=== PATIENT | female | born 1950 | race Caucasian/White ===

== ENCOUNTER 2021-05-10 20:57 | Inpatient (IN) | payer MEDICARE, SELFPAY ==
[2021-05-10 21:26] VITALS: BMI 28.0
--- NOTE | 2021-05-10 22:08 | PC.NURSE ---
Pt arrived to the floor via stretcher as admit from [facility] obs unit 1400, at 2110. The pt agreed to sign a CV. The pt reports hearing voices from eleno, telling me I am loved and am a good person . The pt reports she understands they are voices nobody else hears, but I would be sad if they went away . The pt carries the medical diagnosis of A-fib; HLD; MARTINA; and DM2. The pt reports she does not regularly check her blood sugar at home, and does not use a C-PAP machine at this time at home since hers is no longer usable. The pt is alert and oriented to person, place, month, and situation. She reports I know the voices I hear are not normal, but I don't want them to go away . The pt reports I will not sign release forms, I don't want anyone here to talk to my family, and I don't want them to visit.
[2021-05-10] MEDS: Magnesium Hydrox/Alum Hydrox 30 ML ORAL.SUSP PO (23:47)
[2021-05-11 08:00] VITALS: BP 119/69; PULSE 74; RESP 17; TEMP 36.2; O2SAT 95
[2021-05-11] MEDS: hydroCHLOROthiazide 25 MG TABLET PO (08:18)
[2021-05-11] MEDS: OLANZapine 5 MG TABLET PO (08:18)
[2021-05-11] MEDS: Cholecalciferol (Vitamin D3) 10 MCG TABLET PO (08:18)
[2021-05-11] MEDS: Metoprolol Succinate ER 50 MG TAB.ER.24H PO (08:18)
[2021-05-11] MEDS: Apixaban 5 MG TABLET PO ×2 (08:18→20:32)
[2021-05-11] MEDS: lisinopriL 40 MG TABLET PO (08:18)
[2021-05-11] MEDS: SITagliptin Phosphate 100 MG TABLET PO (09:44)
[2021-05-11] MEDS: Flecainide Acetate 50 MG TABLET 100 MG PO ×2 (09:44→20:32)
--- NOTE | 2021-05-11 14:36 | P.HPPS_ITS ---
HPI Date of Service: 05/11/21 Chief Complaint: Unspecified Schizophrenia Sources of Information: patient interviewed, chart reviewed and crisis/core team assessment reviewed HPI Subjective Notes: Vogt Warning and Conditional Voluntary Narrative: The patient is a 70-year-old female, , mother of adult children, retired high school computer science teacher, living with her , With good social support, referred from [facility] for psychotic symptoms. According to the patient, since January, she has been hearing angelical voices who sings to her Alyce we love you another positive messages. The patient was brought to the emergency room by her family since she became more disorganized according to the crisis assessment. She was initially admitted to Medicine, fully workout and then later followed by Psychiatry and the consultation liasson service recommended inpatient level of care.According to the report of [facility], the patient has been cheeking her antipsychotics that is why she is on Zyprexa Zydis to assure compliance. On interview, the patient reported that she is very angry with her family since they put her in the hospital against her will and, at this moment she does not want us to contact her or children for further details. She admitted auditory hallucinations but she adamantly denies paranoia, ideas of reference or disorganized thought process. Apparently she is very religiously preoccupied, she has verbalized to the staff that she is waiting for the rupture and she would be with got. Even though the patient is psychotic with bizarre delusions and religiously preoccupied, she is very easily redirectable and pleasant. She stated that she does not want her voices to go and she liked them very much. Past Psychiatric History: denies Medical Evaluation Reviewed: Yes [facility] Narrative: HTN Diabetes type 2 Family History: denies Social History: the patient is the 3rd of 6 siblings, her milestones were achieved at expected age. She was raised by her parents that she had a very good childhood. She denied regular school and later she graduated. She attended college, she got and she has 3 adult children right now, she has worked and she has have a very good life. She retired as a high school computer science teacher Substance History: denies Trauma History: denies Diagnostics Vital Signs (24Hr): Vital Signs - 24 hr 05/11/21 08:00 Temperature 97.1 F Pulse Rate 74 Respiratory Rate 17 Blood Pressure 119/69 Pulse Oximetry 95 BMI result Body Mass Index 28.0 Meds/Allergies Meds Home Medications Acetaminophen (Acetaminophen 325 Mg Tablet) 650 mg PO Q6H PRN PRN Reason: Headache/Pain Mild Scale (1-3) Al Hydroxide/Mg Hydroxide (Magnesium Hydrox/Alum Hydrox 30 Ml Oral.Susp) 30 ml PO Q6H PRN PRN Reason: Heartburn/Nausea Last Admin: 05/10/21 23:47 Dose: 30 ml Documented by: Apixaban (Apixaban 5 Mg Tablet) 5 mg PO BID [facility] Last Admin: 05/11/21 08:18 Dose: 5 mg Documented by: Flecainide Acetate (Flecainide Acetate 50 Mg Tablet) 100 mg PO BID [facility] Last Admin: 05/11/21 09:44 Dose: 100 mg Documented by: Hydrochlorothiazide (Hydrochlorothiazide 25 Mg Tablet) 25 mg PO DAILY [facility] Last Admin: 05/11/21 08:18 Dose: 25 mg Documented by: Hydroxyzine HCl (Hydroxyzine Hcl 25 Mg Tablet) 25 mg PO Q6H PRN PRN Reason: Anxiety Lisinopril (Lisinopril 40 Mg Tablet) 40 mg PO DAILY [facility]; Protocol Last Admin: 05/11/21 08:18 Dose: 40 mg Documented by: Magnesium Hydroxide (Milk Of Magnesia 30 Ml Oral.Susp) 30 ml PO DAILY PRN PRN Reason: Constipation Metoprolol Succinate (Metoprolol Succinate Er 50 Mg Tab.Er.24h) 50 mg PO DAILY [facility]; Protocol Last Admin: 05/11/21 08:18 Dose: 50 mg Documented by: Olanzapine (Olanzapine 2.5 Mg Tablet) 2.5 mg PO Q6H PRN PRN Reason: anxious, agitated Olanzapine (Olanzapine Odt 10 Mg Tab.Rapdis) 10 mg TRANSLINGU BEDTIME [facility] Sitagliptin Phosphate (Sitagliptin Phosphate 100 Mg Tablet) 100 mg PO DAILY [facility] Last Admin: 05/11/21 09:44 Dose: 100 mg Documented by: Trazodone HCl (Trazodone Hcl 50 Mg Tablet) 50 mg PO BEDTIME PRN PRN Reason: Insomnia Vitamin D (Cholecalciferol (Vitamin D3) 10 Mcg Tablet) 10 mcg PO DAILY [facility] Last Admin: 05/11/21 08:18 Dose: 10 mcg Documented by: Allergies Allergies Allergy/AdvReac Type Severity Reaction Status Date / Time bee pollen [bee stings] Allergy Swelling Verified 05/10/21 21:25 codeine Allergy Anaphylaxis Verified 05/10/21 21:25 Mental Status Exam Mental Status Exam Patient Appearance: Well Grooomed Patient Orientation: Person and Situation Level of Consciousness: Awake Patient Behavior: Appropriate Mood Description: Calm and Relaxed Affect Description: Cheerful and Anxious Ability to Follow Directions: Fair Speech Pattern: Clear Hallucinations: Auditory Delusions: Ideas of Reference and Bizarre Thought Process: Distracted and Evasive Thought Content: positive for Cades, positive for Circumstantial, positive for Poverty of Content and positive for Evasive Judgement: Poor Assessment & Plan Assessment & Plan (1) Psychosis: Status: Acute Code(s): F29 - Unspecified psychosis not due to a substance or known physiological condition Plan the patient is a 70-year-old female with no prior psychiatric illnesses, transferred from another hospital after being medically cleared for psychotic symptoms mostly auditory hallucinations and disorganized thought process, obsessed with worship content. Plan 1. Gather collateral information. 2. Continue Zyprexa but now only 15 mg p.o. q.h.s. on disorder been tablet since the patient has a history of cheeking medication. Patient educated on: therapeutic strategies Informed Consent: further education needed Reason for continued inpatient stay Substantial Risk for: inability to function, rapid decompensation and med/psych decompensation
[2021-05-11 18:00] VITALS: BP 141/60; PULSE 76; RESP 17; TEMP 36.9; O2SAT 97
[2021-05-11] MEDS: OLANZapine ODT 10 MG TAB.RAPDIS TRANSLINGU (20:33)
[2021-05-12] MEDS: lisinopriL 40 MG TABLET PO (08:13)
[2021-05-12] MEDS: Flecainide Acetate 50 MG TABLET 100 MG PO ×2 (08:13→19:59)
[2021-05-12] MEDS: Apixaban 5 MG TABLET PO ×2 (08:14→19:59)
[2021-05-12] MEDS: hydroCHLOROthiazide 25 MG TABLET PO (08:14)
[2021-05-12] MEDS: Cholecalciferol (Vitamin D3) 10 MCG TABLET PO (08:14)
[2021-05-12] MEDS: Metoprolol Succinate ER 50 MG TAB.ER.24H PO (08:14)
[2021-05-12] MEDS: SITagliptin Phosphate 100 MG TABLET PO (08:14)
[2021-05-12 08:30] VITALS: BP 121/60; PULSE 63; RESP 16; TEMP 36.2; O2SAT 96
--- NOTE | 2021-05-12 12:29 | HO.PM.IMCN ---
History of Present Illness Data of Consult Service Date: 05/12/21 Requesting physician: Jonelle Whitman Primary Care Provider: Jude Campbell MD HPI Reason for consult: medical history and exam 70-year-old white female with past medical history of atrial fibrillation on Eliquis, dyslipidemia, diabetes mellitus status type 2 admitted to [facility] as a transfer from [facility], for auditory hallucination, paranoia and psychosis, patient underwent extensive testing at [facility] was seen by Neurology and Psychiatry and MRI study was unremarkable CT has was negative, EEG showed no abnormality, patient declined LP, at present patient is awake alert denies acute symptoms of chest pain shortness of breath, no dizziness no fevers no chills. Review of Systems Review of Systems: General no headache, no dizziness no fever chills. CVS no chest pain, no palpitation. Respiratory no cough , no sputum production no respiratory distress. Gastrointestinal no nausea no vomiting, no abdominal pain Yes all other systems are reviewed and are negative PMFSH Pertinent family history: patient denies significant family history Social History Household Members: Spouse Housing: House Do you presently have visiting nurse or other home services: No Patient Tobacco Use Status: Never used Tobacco Use of substances other than those prescribed or required for medical reasons: No Currently Displaying Signs/Symptoms of Drug Intoxication Withdrawal: No Have you been hit, kicked, punched, or otherwise hurt by someone within the past year? If so, by whom?: No Do you feel safe in your current relationship?: Yes Is there a partner from a previous relationship who is making you feel unsafe now?: No Are you made to feel afraid or neglected: No Spiritual Healthcare Practices: Religiously preoccupied. Advance Directives: No Advance Directives Information Provided: No Do you have thoughts of harming others: None Do you have a plan to hurt others: No Plan Recently lost weight without trying: No How much weight loss: Not applicable Eating poorly because of decreased appetite: No Nutrition screen score: 0 Nutrition Risks: No Nutritional Risk Patient : No : No Poor oral hygiene: No service: No Sexual orientation: Straight/Heterosexual Meds Allergies Allergy/AdvReac Type Severity Reaction Status Date / Time bee pollen [bee stings] Allergy Swelling Verified 05/10/21 21:25 codeine Allergy Anaphylaxis Verified 05/10/21 21:25 Active Medications: Current Medications Acetaminophen (Acetaminophen 325 Mg Tablet) 650 mg PO Q6H PRN PRN Reason: Headache/Pain Mild Scale (1-3) Al Hydroxide/Mg Hydroxide (Magnesium Hydrox/Alum Hydrox 30 Ml Oral.Susp) 30 ml PO Q6H PRN PRN Reason: Heartburn/Nausea Last Admin: 05/10/21 23:47 Dose: 30 ml Documented by: Apixaban (Apixaban 5 Mg Tablet) 5 mg PO BID [facility] Last Admin: 05/12/21 08:14 Dose: 5 mg Documented by: Flecainide Acetate (Flecainide Acetate 50 Mg Tablet) 100 mg PO BID [facility] Last Admin: 05/12/21 08:13 Dose: 100 mg Documented by: Hydrochlorothiazide (Hydrochlorothiazide 25 Mg Tablet) 25 mg PO DAILY [facility] Last Admin: 05/12/21 08:14 Dose: 25 mg Documented by: Hydroxyzine HCl (Hydroxyzine Hcl 25 Mg Tablet) 25 mg PO Q6H PRN PRN Reason: Anxiety Lisinopril (Lisinopril 40 Mg Tablet) 40 mg PO DAILY [facility]; Protocol Last Admin: 05/12/21 08:13 Dose: 40 mg Documented by: Magnesium Hydroxide (Milk Of Magnesia 30 Ml Oral.Susp) 30 ml PO DAILY PRN PRN Reason: Constipation Metoprolol Succinate (Metoprolol Succinate Er 50 Mg Tab.Er.24h) 50 mg PO DAILY [facility]; Protocol Last Admin: 05/12/21 08:14 Dose: 50 mg Documented by: Olanzapine (Olanzapine 2.5 Mg Tablet) 2.5 mg PO Q6H PRN PRN Reason: anxious, agitated Olanzapine (Olanzapine Odt 10 Mg Tab.Rapdis) 10 mg TRANSLINGU BEDTIME [facility] Last Admin: 05/11/21 20:33 Dose: 10 mg Documented by: Sitagliptin Phosphate (Sitagliptin Phosphate 100 Mg Tablet) 100 mg PO DAILY [facility] Last Admin: 05/12/21 08:14 Dose: 100 mg Documented by: Trazodone HCl (Trazodone Hcl 50 Mg Tablet) 50 mg PO BEDTIME PRN PRN Reason: Insomnia Vitamin D (Cholecalciferol (Vitamin D3) 10 Mcg Tablet) 10 mcg PO DAILY [facility] Last Admin: 05/12/21 08:14 Dose: 10 mcg Documented by: Physical Exam Vital Signs and Narrative: Vital Signs: Last Vital Signs Temp 97.1 F 05/12/21 08:30 Pulse 63 05/12/21 08:30 Resp 16 05/12/21 08:30 BP 121/60 05/12/21 08:30 Pulse Ox 96 05/12/21 08:30 BMI result Body Mass Index 28.0 Const: Other: awake alert resting comfortably, patient declined examination. Assessment and Plan (1) Dyslipidemia: Status: Acute (2) Diabetes mellitus: Status: Acute (3) Atrial fibrillation: Status: Acute (4) Psychosis: Status: Acute Plan 70-year-old female patient admitted to [facility] due to psychosis with past medical history of atrial fibrillation on Eliquis, history of dyslipidemia, type 2 diabetes mellitus. Patient refused to be examined. Atrial fibrillation stable blood pressure and pulse will recommend to continue Eliquis, flecainide and Toprol-XL, no EKGs available to determine if patient is in sinus rhythm or AFib and patient declined examination. diabetes mellitus continue Januvia and diabetic diet, recommend to follow blood sugar daily thank you for allowing us to participate in the care of this patient
--- NOTE | 2021-05-12 16:52 | P.PNPSI_ITS ---
Subjective Subjective Date of Service: 05/12/21 Reason For Visit: Unspecified Schizophrenia Subjective Notes: Conditional Voluntary Medical Problems Affecting Mental Status: No Interim History: met with patient and discussed with Nursing. Continues to have nondenominational preoccupation. Praying in the day area. Trying to save other patients through prayer. Reports that she feels great and she enjoys having God's angels talking to her. States that they tell her they miss her and that she will be able to help people for ever and never. Reports not feeling anxious or stressed by this but feeling blast. Wanted to encourage ad copy writer to repeat the sinners prayer after her in order that ad copy writer could go to [facility]. She eventually compromised on saying the sinners prayer out loud so ad copy writer could have the option to repeat this themselves at another time and avoid hell and damnation. sleep has been poor. Energy and appetite okay. Does not feel that she needs medications however is taking them. Medication Compliance: Yes Side effects from medications: No Attending Groups: Yes Review of Systems Acute medical concerns: No Review of Systems Review of Systems Unremarkable Mental Status Exam Mental Status Exam Narrative: seen in day room and also patient room. Appropriately dressed. Hygiene okay. Praying out loud. Intrusive at times. Elated. Hallucinating. No SI or HI. Insight and judgment limited Diagnostics Vital Signs (24Hr): Vital Signs - 24 hr 05/11/21 18:00 05/12/21 08:30 Temperature 98.4 F 97.1 F Pulse Rate 76 63 Respiratory Rate 17 16 Blood Pressure 141/60 H 121/60 Pulse Oximetry 97 96 BMI result Body Mass Index 28.0 Medications Medications Current Medications Acetaminophen (Acetaminophen 325 Mg Tablet) 650 mg PO Q6H PRN PRN Reason: Headache/Pain Mild Scale (1-3) Al Hydroxide/Mg Hydroxide (Magnesium Hydrox/Alum Hydrox 30 Ml Oral.Susp) 30 ml PO Q6H PRN PRN Reason: Heartburn/Nausea Last Admin: 05/10/21 23:47 Dose: 30 ml Documented by: Apixaban (Apixaban 5 Mg Tablet) 5 mg PO BID [facility] Last Admin: 05/12/21 08:14 Dose: 5 mg Documented by: Flecainide Acetate (Flecainide Acetate 50 Mg Tablet) 100 mg PO BID [facility] Last Admin: 05/12/21 08:13 Dose: 100 mg Documented by: Hydrochlorothiazide (Hydrochlorothiazide 25 Mg Tablet) 25 mg PO DAILY [facility] Last Admin: 05/12/21 08:14 Dose: 25 mg Documented by: Hydroxyzine HCl (Hydroxyzine Hcl 25 Mg Tablet) 25 mg PO Q6H PRN PRN Reason: Anxiety Lisinopril (Lisinopril 40 Mg Tablet) 40 mg PO DAILY [facility]; Protocol Last Admin: 05/12/21 08:13 Dose: 40 mg Documented by: Magnesium Hydroxide (Milk Of Magnesia 30 Ml Oral.Susp) 30 ml PO DAILY PRN PRN Reason: Constipation Metoprolol Succinate (Metoprolol Succinate Er 50 Mg Tab.Er.24h) 50 mg PO DAILY [facility]; Protocol Last Admin: 05/12/21 08:14 Dose: 50 mg Documented by: Olanzapine (Olanzapine 2.5 Mg Tablet) 2.5 mg PO Q6H PRN PRN Reason: anxious, agitated Olanzapine (Olanzapine Odt 10 Mg Tab.Rapdis) 10 mg TRANSLINGU BEDTIME [facility] Last Admin: 05/11/21 20:33 Dose: 10 mg Documented by: Sitagliptin Phosphate (Sitagliptin Phosphate 100 Mg Tablet) 100 mg PO DAILY [facility] Last Admin: 05/12/21 08:14 Dose: 100 mg Documented by: Trazodone HCl (Trazodone Hcl 50 Mg Tablet) 50 mg PO BEDTIME PRN PRN Reason: Insomnia Vitamin D (Cholecalciferol (Vitamin D3) 10 Mcg Tablet) 10 mcg PO DAILY [facility] Last Admin: 05/12/21 08:14 Dose: 10 mcg Documented by: Allergies Allergies Allergy/AdvReac Type Severity Reaction Status Date / Time bee pollen [bee stings] Allergy Swelling Verified 05/10/21 21:25 codeine Allergy Anaphylaxis Verified 05/10/21 21:25 Assessment & Plan Assessment & Plan (1) Dyslipidemia: Status: Acute Code(s): E78.5 - Hyperlipidemia, unspecified (2) Diabetes mellitus: Status: Acute Code(s): E11.9 - Type 2 diabetes mellitus without complications (3) Atrial fibrillation: Status: Acute Code(s): I48.91 - Unspecified atrial fibrillation (4) Psychosis: Status: Acute Code(s): F29 - Unspecified psychosis not due to a substance or known physiological condition Assessment and Plan: 05/12/2021: presents with elation and psychosis. Is currently accepting olanzapine 10 mg and will continue same as it has only been 1 day. Plan 70-year-old female patient admitted to [facility] due to psychosis with past medical history of atrial fibrillation on Eliquis, history of dyslipidemia, type 2 diabetes mellitus. Patient refused to be examined. Atrial fibrillation stable blood pressure and pulse will recommend to continue Eliquis, flecainide and Toprol-XL, no EKGs available to determine if patient is in sinus rhythm or AFib and patient declined examination. diabetes mellitus continue Januvia and diabetic diet, recommend to follow blood sugar daily thank you for allowing us to participate in the care of this patient I spent minutes with the patient and/or on the patient floor today, greater than?50% of which was spent counseling/coordinating care. Patient educated on: medication risk/benefits Reason for contiued inpatient stay Substantial Risk for: inability to function
[2021-05-12 18:00] VITALS: BP 109/55; PULSE 60; RESP 17; TEMP 36.4; O2SAT 95
[2021-05-12] MEDS: OLANZapine ODT 10 MG TAB.RAPDIS TRANSLINGU (19:59)
[2021-05-13 06:00] VITALS: BP 126/60; PULSE 65; RESP 16; TEMP 36.2; O2SAT 97
[2021-05-13] MEDS: hydroCHLOROthiazide 25 MG TABLET PO (09:25)
[2021-05-13] MEDS: Metoprolol Succinate ER 50 MG TAB.ER.24H PO (09:25)
[2021-05-13] MEDS: Cholecalciferol (Vitamin D3) 10 MCG TABLET PO (09:25)
[2021-05-13] MEDS: Flecainide Acetate 50 MG TABLET 100 MG PO ×2 (09:26→20:03)
[2021-05-13] MEDS: Apixaban 5 MG TABLET PO ×2 (09:26→20:05)
[2021-05-13] MEDS: lisinopriL 40 MG TABLET PO (09:26)
[2021-05-13] MEDS: SITagliptin Phosphate 100 MG TABLET PO (09:26)
--- NOTE | 2021-05-13 14:29 | P.PNPSI_ITS ---
Subjective Subjective Date of Service: 05/13/21 Reason For Visit: jarrett and psychosis Subjective Notes: Conditional Voluntary Medical Problems Affecting Mental Status: No Interim History: Met with patient and discussed with Nursing. Continues to have advent preoccupation. This ch showever appear to be slightly less intense today. Still reports that she feels great and she enjoys having God's angels talking to her. Not anxious or stressed by this but feeling blast. Wanted to pray for show card writer (intercession prayer) and did so. Sleep has been ok- sleep early, awake early. Energy and appetite okay. Does not feel that she needs medications however is taking them. Medication Compliance: Yes Side effects from medications: No Attending Groups: Yes Review of Systems Acute medical concerns: No Review of Systems Review of Systems Unremarkable Mental Status Exam Mental Status Exam Narrative: seen in day room and also patient room. Appropriately dressed. Hygiene okay. . Less intruisve and intesne. Elated. Hallucinating. No SI or HI. Insight and judgment limited Diagnostics Vital Signs (24Hr): Vital Signs - 24 hr 05/12/21 18:00 05/13/21 06:00 Temperature 97.6 F 97.2 F Pulse Rate 60 65 Respiratory Rate 17 16 Blood Pressure 109/55 L 126/60 Pulse Oximetry 95 97 BMI result Body Mass Index 28.0 Medications Medications Current Medications Acetaminophen (Acetaminophen 325 Mg Tablet) 650 mg PO Q6H PRN PRN Reason: Headache/Pain Mild Scale (1-3) Al Hydroxide/Mg Hydroxide (Magnesium Hydrox/Alum Hydrox 30 Ml Oral.Susp) 30 ml PO Q6H PRN PRN Reason: Heartburn/Nausea Last Admin: 05/10/21 23:47 Dose: 30 ml Documented by: Apixaban (Apixaban 5 Mg Tablet) 5 mg PO BID [facility] Last Admin: 05/13/21 09:26 Dose: 5 mg Documented by: Flecainide Acetate (Flecainide Acetate 50 Mg Tablet) 100 mg PO BID [facility] Last Admin: 05/13/21 09:26 Dose: 100 mg Documented by: Hydrochlorothiazide (Hydrochlorothiazide 25 Mg Tablet) 25 mg PO DAILY [facility] Last Admin: 05/13/21 09:25 Dose: 25 mg Documented by: Hydroxyzine HCl (Hydroxyzine Hcl 25 Mg Tablet) 25 mg PO Q6H PRN PRN Reason: Anxiety Lisinopril (Lisinopril 40 Mg Tablet) 40 mg PO DAILY [facility]; Protocol Last Admin: 05/13/21 09:26 Dose: 40 mg Documented by: Magnesium Hydroxide (Milk Of Magnesia 30 Ml Oral.Susp) 30 ml PO DAILY PRN PRN Reason: Constipation Metoprolol Succinate (Metoprolol Succinate Er 50 Mg Tab.Er.24h) 50 mg PO DAILY [facility]; Protocol Last Admin: 05/13/21 09:25 Dose: 50 mg Documented by: Olanzapine (Olanzapine 2.5 Mg Tablet) 2.5 mg PO Q6H PRN PRN Reason: anxious, agitated Olanzapine (Olanzapine Odt 10 Mg Tab.Rapdis) 10 mg TRANSLINGU BEDTIME [facility] Last Admin: 05/12/21 19:59 Dose: 10 mg Documented by: Sitagliptin Phosphate (Sitagliptin Phosphate 100 Mg Tablet) 100 mg PO DAILY [facility] Last Admin: 05/13/21 09:26 Dose: 100 mg Documented by: Trazodone HCl (Trazodone Hcl 50 Mg Tablet) 50 mg PO BEDTIME PRN PRN Reason: Insomnia Vitamin D (Cholecalciferol (Vitamin D3) 10 Mcg Tablet) 10 mcg PO DAILY [facility] Last Admin: 05/13/21 09:25 Dose: 10 mcg Documented by: Allergies Allergies Allergy/AdvReac Type Severity Reaction Status Date / Time bee pollen [bee stings] Allergy Swelling Verified 05/10/21 21:25 codeine Allergy Anaphylaxis Verified 05/10/21 21:25 Assessment & Plan Assessment & Plan (1) Dyslipidemia: Status: Acute Code(s): E78.5 - Hyperlipidemia, unspecified (2) Diabetes mellitus: Status: Acute Code(s): E11.9 - Type 2 diabetes mellitus without complications (3) Atrial fibrillation: Status: Acute Code(s): I48.91 - Unspecified atrial fibrillation (4) Psychosis: Status: Acute Code(s): F29 - Unspecified psychosis not due to a substance or known physiological condition Assessment and Plan: 05/12/2021: presents with elation and psychosis. Is currently accepting olanzapine 10 mg and will continue same as it has only been 1 day. 05/13: no changes Plan 70-year-old female patient admitted to [facility] due to psychosis with past medical history of atrial fibrillation on Eliquis, history of dyslipidemia, type 2 diabetes mellitus. Patient refused to be examined. Atrial fibrillation stable blood pressure and pulse will recommend to continue Eliquis, flecainide and Toprol-XL, no EKGs available to determine if patient is in sinus rhythm or AFib and patient declined examination. diabetes mellitus continue Januvia and diabetic diet, recommend to follow blood sugar daily thank you for allowing us to participate in the care of this patient I spent minutes with the patient and/or on the patient floor today, greater than?50% of which was spent counseling/coordinating care. Patient educated on: medication risk/benefits Reason for contiued inpatient stay Substantial Risk for: inability to function
[2021-05-13 18:00] VITALS: BP 121/56; PULSE 60; RESP 16; TEMP 36.1
[2021-05-13] MEDS: OLANZapine ODT 10 MG TAB.RAPDIS TRANSLINGU (20:04)
[2021-05-13] MEDS: hydrOXYzine HCL 25 MG TABLET PO (23:20)
[2021-05-14 06:00] VITALS: BP 114/60; PULSE 60; RESP 14; TEMP 36.2; O2SAT 95
[2021-05-14 08:00] VITALS: BP 104/54; PULSE 57; RESP 14; TEMP 36.2; O2SAT 95
[2021-05-14] MEDS: Apixaban 5 MG TABLET PO ×2 (08:05→20:06)
[2021-05-14] MEDS: lisinopriL 40 MG TABLET PO (08:05)
[2021-05-14] MEDS: Metoprolol Succinate ER 50 MG TAB.ER.24H PO (08:05)
[2021-05-14] MEDS: hydroCHLOROthiazide 25 MG TABLET PO (08:05)
[2021-05-14] MEDS: Flecainide Acetate 50 MG TABLET 100 MG PO ×2 (08:05→20:06)
[2021-05-14] MEDS: Cholecalciferol (Vitamin D3) 10 MCG TABLET PO (08:05)
[2021-05-14] MEDS: SITagliptin Phosphate 100 MG TABLET PO (08:05)
--- NOTE | 2021-05-14 13:37 | P.PNPSI_ITS ---
Subjective Subjective Date of Service: 05/14/21 Reason For Visit: jarrett and psychosis Subjective Notes: Conditional Voluntary Interim History: The nursing staff reports the patient remains religiously preoccupied, hearing voices. She denies any discomfort she has been pleasant cheerful and cooperative fully compliant with treatment. Today, her son came to visit and wanted her to be discharged as soon as possible to his care. I informed the patient about the 3 day notice letter and other options. So far, the patient remains with auditory hallucinations, really should be preoccupied but not violent. Mental Status Exam Mental Status Exam Patient Appearance: Well Grooomed Patient Orientation: Person Level of Consciousness: Awake Patient Behavior: Appropriate Mood Description: Calm Affect Description: Relaxed and Cheerful Patient Cognition Impaired: No Ability to Follow Directions: Good Speech Pattern: Clear Hallucinations: None Delusions: Ideas of Reference and Bizarre Thought Process: Linear Thought Content: positive for Circumstantial, positive for Perseveration and positive for Tangential Judgement: Fair Diagnostics Vital Signs (24Hr): Vital Signs - 24 hr 05/13/21 18:00 05/14/21 06:00 05/14/21 08:00 Temperature 97 F 97.1 F 97.1 F Pulse Rate 60 60 57 Respiratory Rate 16 14 14 Blood Pressure 121/56 L 114/60 104/54 L Pulse Oximetry 95 95 BMI result Body Mass Index 28.0 Medications Medications Current Medications Acetaminophen (Acetaminophen 325 Mg Tablet) 650 mg PO Q6H PRN PRN Reason: Headache/Pain Mild Scale (1-3) Al Hydroxide/Mg Hydroxide (Magnesium Hydrox/Alum Hydrox 30 Ml Oral.Susp) 30 ml PO Q6H PRN PRN Reason: Heartburn/Nausea Last Admin: 05/10/21 23:47 Dose: 30 ml Documented by: Apixaban (Apixaban 5 Mg Tablet) 5 mg PO BID [facility] Last Admin: 05/14/21 08:05 Dose: 5 mg Documented by: Flecainide Acetate (Flecainide Acetate 50 Mg Tablet) 100 mg PO BID [facility] Last Admin: 05/14/21 08:05 Dose: 100 mg Documented by: Hydrochlorothiazide (Hydrochlorothiazide 25 Mg Tablet) 25 mg PO DAILY [facility] Last Admin: 05/14/21 08:05 Dose: 25 mg Documented by: Hydroxyzine HCl (Hydroxyzine Hcl 25 Mg Tablet) 25 mg PO Q6H PRN PRN Reason: Anxiety Last Admin: 05/13/21 23:20 Dose: 25 mg Documented by: Lisinopril (Lisinopril 40 Mg Tablet) 40 mg PO DAILY [facility]; Protocol Last Admin: 05/14/21 08:05 Dose: 40 mg Documented by: Magnesium Hydroxide (Milk Of Magnesia 30 Ml Oral.Susp) 30 ml PO DAILY PRN PRN Reason: Constipation Metoprolol Succinate (Metoprolol Succinate Er 50 Mg Tab.Er.24h) 50 mg PO DAILY [facility]; Protocol Last Admin: 05/14/21 08:05 Dose: 50 mg Documented by: Olanzapine (Olanzapine 2.5 Mg Tablet) 2.5 mg PO Q6H PRN PRN Reason: anxious, agitated Olanzapine (Olanzapine Odt 10 Mg Tab.Rapdis) 10 mg TRANSLINGU BEDTIME [facility] Last Admin: 05/13/21 20:04 Dose: 10 mg Documented by: Sitagliptin Phosphate (Sitagliptin Phosphate 100 Mg Tablet) 100 mg PO DAILY [facility] Last Admin: 05/14/21 08:05 Dose: 100 mg Documented by: Trazodone HCl (Trazodone Hcl 50 Mg Tablet) 50 mg PO BEDTIME PRN PRN Reason: Insomnia Vitamin D (Cholecalciferol (Vitamin D3) 10 Mcg Tablet) 10 mcg PO DAILY [facility] Last Admin: 05/14/21 08:05 Dose: 10 mcg Documented by: Allergies Allergies Allergy/AdvReac Type Severity Reaction Status Date / Time bee pollen [bee stings] Allergy Swelling Verified 05/10/21 21:25 codeine Allergy Anaphylaxis Verified 05/10/21 21:25 Assessment & Plan Assessment & Plan (1) Dyslipidemia: Status: Acute Code(s): E78.5 - Hyperlipidemia, unspecified (2) Diabetes mellitus: Status: Acute Code(s): E11.9 - Type 2 diabetes mellitus without complications (3) Atrial fibrillation: Status: Acute Code(s): I48.91 - Unspecified atrial fibrillation (4) Psychosis: Status: Acute Code(s): F29 - Unspecified psychosis not due to a substance or known physiological condition Assessment and Plan: 05/12/2021: presents with elation and psychosis. Is currently accepting olanzapine 10 mg and will continue same as it has only been 1 day. 05/13: no changes Plan 70-year-old female patient admitted to [facility] due to psychosis with past medical history of atrial fibrillation on Eliquis, history of dyslipidemia, type 2 diabetes mellitus. Patient refused to be examined. Atrial fibrillation stable blood pressure and pulse will recommend to continue Eliquis, flecainide and Toprol-XL, no EKGs available to determine if patient is in sinus rhythm or AFib and patient declined examination. diabetes mellitus continue Januvia and diabetic diet, recommend to follow blood sugar daily Plan 1. Continue Zyprexa Zydis 10 mg p.o. q.h.s.. 2. Gather collateral information. I spent __20____ minutes with the patient and/or on the patient floor today, greater than?50% of which was spent counseling/coordinating care. Reason for contiued inpatient stay Substantial Risk for: inability to function, rapid decompensation and med/psych decompensation
[2021-05-14 19:50] VITALS: BP 111/55; PULSE 60; RESP 18; TEMP 36.4; O2SAT 96
[2021-05-14] MEDS: OLANZapine ODT 10 MG TAB.RAPDIS TRANSLINGU (20:06)
[2021-05-14] MEDS: hydrOXYzine HCL 25 MG TABLET PO (20:06)
[2021-05-15 07:30] VITALS: BP 116/70; PULSE 62; RESP 16; TEMP 36.2; O2SAT 95
--- NOTE | 2021-05-15 08:11 | HO.PSYCHPN ---
Subjective Subjective Date of Service: 05/15/21 Reason For Visit: jarrett and psychosis Subjective Notes: 3 Day Interim History: The nursing staff reported the patient was seen socializing with other peers, she slept well last night. Yesterday she signed a 3 day notice. Apparently her son came to visit her and he wants to be discharged under his care. Apparently, the rest of the family stated that he has she needs psychiatric care and he is the only member of the family who disagrees. The son is expecting a new baby pretty soon. On interview, the patient deniesl auditory hallucinations of angelical voices or bizarre delusions regarding the rapture, still very religiously preoccupied but she seems a little more appropriated. the patient has for reading to talk with her that lives with her since she is very angry with him. I explain and provide psychoeducation done at will course of illness to her son, we were discussing that it will be very unlikely that we will prevail on court for a Section 7 and 8. The patient stated that she is going to be fully compliant with treatment. Mental Status Exam Mental Status Exam Patient Appearance: Well Grooomed Patient Orientation: Person and Situation Level of Consciousness: Awake Patient Behavior: Guarded and Talkative Mood Description: Calm and Appropriate Patient Cognition Impaired: No Ability to Follow Directions: Good Speech Pattern: Clear Hallucinations: None Delusions: Bizarre Thought Process: Evasive Thought Content: positive for Maynard, positive for Obsessional Thoughts and positive for Poverty of Content Judgement: Fair Diagnostics Vital Signs (24Hr): Vital Signs - 24 hr 05/14/21 19:50 Temperature 97.5 F Pulse Rate 60 Respiratory Rate 18 Blood Pressure 111/55 L Pulse Oximetry 96 BMI result Body Mass Index 28.0 Medications Medications Current Medications Acetaminophen (Acetaminophen 325 Mg Tablet) 650 mg PO Q6H PRN PRN Reason: Headache/Pain Mild Scale (1-3) Al Hydroxide/Mg Hydroxide (Magnesium Hydrox/Alum Hydrox 30 Ml Oral.Susp) 30 ml PO Q6H PRN PRN Reason: Heartburn/Nausea Last Admin: 05/10/21 23:47 Dose: 30 ml Documented by: Apixaban (Apixaban 5 Mg Tablet) 5 mg PO BID [facility] Last Admin: 05/14/21 20:06 Dose: 5 mg Documented by: Flecainide Acetate (Flecainide Acetate 50 Mg Tablet) 100 mg PO BID [facility] Last Admin: 05/14/21 20:06 Dose: 100 mg Documented by: Hydrochlorothiazide (Hydrochlorothiazide 25 Mg Tablet) 25 mg PO DAILY [facility] Last Admin: 05/14/21 08:05 Dose: 25 mg Documented by: Hydroxyzine HCl (Hydroxyzine Hcl 25 Mg Tablet) 25 mg PO Q6H PRN PRN Reason: Anxiety Last Admin: 05/14/21 20:06 Dose: 25 mg Documented by: Lisinopril (Lisinopril 40 Mg Tablet) 40 mg PO DAILY [facility]; Protocol Last Admin: 05/14/21 08:05 Dose: 40 mg Documented by: Magnesium Hydroxide (Milk Of Magnesia 30 Ml Oral.Susp) 30 ml PO DAILY PRN PRN Reason: Constipation Metoprolol Succinate (Metoprolol Succinate Er 50 Mg Tab.Er.24h) 50 mg PO DAILY [facility]; Protocol Last Admin: 05/14/21 08:05 Dose: 50 mg Documented by: Olanzapine (Olanzapine 2.5 Mg Tablet) 2.5 mg PO Q6H PRN PRN Reason: anxious, agitated Olanzapine (Olanzapine Odt 10 Mg Tab.Rapdis) 10 mg TRANSLINGU BEDTIME [facility] Last Admin: 05/14/21 20:06 Dose: 10 mg Documented by: Sitagliptin Phosphate (Sitagliptin Phosphate 100 Mg Tablet) 100 mg PO DAILY [facility] Last Admin: 05/14/21 08:05 Dose: 100 mg Documented by: Trazodone HCl (Trazodone Hcl 50 Mg Tablet) 50 mg PO BEDTIME PRN PRN Reason: Insomnia Vitamin D (Cholecalciferol (Vitamin D3) 10 Mcg Tablet) 10 mcg PO DAILY [facility] Last Admin: 05/14/21 08:05 Dose: 10 mcg Documented by: Allergies Allergies Allergy/AdvReac Type Severity Reaction Status Date / Time bee pollen [bee stings] Allergy Swelling Verified 05/10/21 21:25 codeine Allergy Anaphylaxis Verified 05/10/21 21:25 Assessment & Plan Assessment & Plan (1) Dyslipidemia: Status: Acute Code(s): E78.5 - Hyperlipidemia, unspecified (2) Diabetes mellitus: Status: Acute Code(s): E11.9 - Type 2 diabetes mellitus without complications (3) Atrial fibrillation: Status: Acute Code(s): I48.91 - Unspecified atrial fibrillation (4) Psychosis: Status: Acute Code(s): F29 - Unspecified psychosis not due to a substance or known physiological condition Plan 70-year-old female patient admitted to [facility] due to psychosis with past medical history of atrial fibrillation on Eliquis, history of dyslipidemia, type 2 diabetes mellitus. Patient refused to be examined. Atrial fibrillation stable blood pressure and pulse will recommend to continue Eliquis, flecainide and Toprol-XL, no EKGs available to determine if patient is in sinus rhythm or AFib and patient declined examination. diabetes mellitus continue Januvia and diabetic diet, recommend to follow blood sugar daily Plan 1. Continue Zyprexa Zydis 10 mg p.o. q.h.s.. 2. Gather collateral information. I spent ___20___ minutes with the patient and/or on the patient floor today, greater than?50% of which was spent counseling/coordinating care. Informed Consent: further education needed Reason for contiued inpatient stay Substantial Risk for: inability to function, rapid decompensation and med/psych decompensation
[2021-05-15] MEDS: Flecainide Acetate 50 MG TABLET 100 MG PO ×2 (08:43→20:35)
[2021-05-15] MEDS: Metoprolol Succinate ER 50 MG TAB.ER.24H PO (08:43)
[2021-05-15] MEDS: hydroCHLOROthiazide 25 MG TABLET PO (08:43)
[2021-05-15] MEDS: SITagliptin Phosphate 100 MG TABLET PO (08:44)
[2021-05-15] MEDS: Apixaban 5 MG TABLET PO ×2 (08:44→20:34)
[2021-05-15] MEDS: Cholecalciferol (Vitamin D3) 10 MCG TABLET PO (08:44)
[2021-05-15] MEDS: lisinopriL 40 MG TABLET PO (08:45)
[2021-05-15] MEDS: OLANZapine ODT 10 MG TAB.RAPDIS TRANSLINGU (20:35)
[2021-05-15] MEDS: hydrOXYzine HCL 25 MG TABLET PO (20:54)
[2021-05-15 21:14] VITALS: BP 125/59; PULSE 55; RESP 17; TEMP 36.6; O2SAT 98
[2021-05-16 07:15] VITALS: BP 113/56; PULSE 51; RESP 16; TEMP 36.2; O2SAT 94
--- NOTE | 2021-05-16 08:18 | P.PNPSI_ITS ---
Subjective Subjective Date of Service: 05/16/21 Reason For Visit: jarrett and psychosis Subjective Notes: Conditional Voluntary Interim History: The nursing staff reported the patient has been visible in the unit, pleasant cheerful and cooperative. She is independent with all her ADL less. She had good appetite and she slept 7 hours. On interview the patient denies auditory hallucinations, she states that she has never been so clear now that she is taking medications. . No paranoia Mental Status Exam Mental Status Exam Patient Appearance: Well Grooomed Patient Orientation: Person and Situation Level of Consciousness: Awake Patient Behavior: Cooperative Mood Description: Cheerful Affect Description: Calm Patient Cognition Impaired: No Ability to Follow Directions: Good Speech Pattern: Clear Hallucinations: None Delusions: Not Present Thought Process: Linear Thought Content: positive for Circumstantial Judgement: Fair Diagnostics Vital Signs (24Hr): Vital Signs - 24 hr 05/15/21 21:14 Temperature 97.8 F Pulse Rate 55 Respiratory Rate 17 Blood Pressure 125/59 L Pulse Oximetry 98 BMI result Body Mass Index 28.0 Medications Medications Current Medications Acetaminophen (Acetaminophen 325 Mg Tablet) 650 mg PO Q6H PRN PRN Reason: Headache/Pain Mild Scale (1-3) Al Hydroxide/Mg Hydroxide (Magnesium Hydrox/Alum Hydrox 30 Ml Oral.Susp) 30 ml PO Q6H PRN PRN Reason: Heartburn/Nausea Last Admin: 05/10/21 23:47 Dose: 30 ml Documented by: Apixaban (Apixaban 5 Mg Tablet) 5 mg PO BID [facility] Last Admin: 05/15/21 20:34 Dose: 5 mg Documented by: Flecainide Acetate (Flecainide Acetate 50 Mg Tablet) 100 mg PO BID [facility] Last Admin: 05/15/21 20:35 Dose: 100 mg Documented by: Hydrochlorothiazide (Hydrochlorothiazide 25 Mg Tablet) 25 mg PO DAILY [facility] Last Admin: 05/15/21 08:43 Dose: 25 mg Documented by: Hydroxyzine HCl (Hydroxyzine Hcl 25 Mg Tablet) 25 mg PO Q6H PRN PRN Reason: Anxiety Last Admin: 05/15/21 20:54 Dose: 25 mg Documented by: Lisinopril (Lisinopril 40 Mg Tablet) 40 mg PO DAILY [facility]; Protocol Last Admin: 05/15/21 08:45 Dose: 40 mg Documented by: Magnesium Hydroxide (Milk Of Magnesia 30 Ml Oral.Susp) 30 ml PO DAILY PRN PRN Reason: Constipation Metoprolol Succinate (Metoprolol Succinate Er 50 Mg Tab.Er.24h) 50 mg PO DAILY [facility]; Protocol Last Admin: 05/15/21 08:43 Dose: 50 mg Documented by: Olanzapine (Olanzapine 2.5 Mg Tablet) 2.5 mg PO Q6H PRN PRN Reason: anxious, agitated Olanzapine (Olanzapine Odt 10 Mg Tab.Rapdis) 10 mg TRANSLINGU BEDTIME [facility] Last Admin: 05/15/21 20:35 Dose: 10 mg Documented by: Sitagliptin Phosphate (Sitagliptin Phosphate 100 Mg Tablet) 100 mg PO DAILY [facility] Last Admin: 05/15/21 08:44 Dose: 100 mg Documented by: Trazodone HCl (Trazodone Hcl 50 Mg Tablet) 50 mg PO BEDTIME PRN PRN Reason: Insomnia Vitamin D (Cholecalciferol (Vitamin D3) 10 Mcg Tablet) 10 mcg PO DAILY [facility] Last Admin: 05/15/21 08:44 Dose: 10 mcg Documented by: Allergies Allergies Allergy/AdvReac Type Severity Reaction Status Date / Time bee pollen [bee stings] Allergy Swelling Verified 05/10/21 21:25 codeine Allergy Anaphylaxis Verified 05/10/21 21:25 Assessment & Plan Assessment & Plan (1) Dyslipidemia: Status: Acute Code(s): E78.5 - Hyperlipidemia, unspecified (2) Diabetes mellitus: Status: Acute Code(s): E11.9 - Type 2 diabetes mellitus without complications (3) Atrial fibrillation: Status: Acute Code(s): I48.91 - Unspecified atrial fibrillation (4) Psychosis: Status: Acute Code(s): F29 - Unspecified psychosis not due to a substance or known physiological condition Plan 70-year-old female patient admitted to [facility] psych due to psychosis with past medical history of atrial fibrillation on Eliquis, history of dyslipidemia, type 2 diabetes mellitus. Patient refused to be examined. Atrial fibrillation stable blood pressure and pulse will recommend to continue Eliquis, flecainide and Toprol-XL, no EKGs available to determine if patient is in sinus rhythm or AFib and patient declined examination. diabetes mellitus continue Januvia and diabetic diet, recommend to follow blood sugar daily Plan 1. Continue Zyprexa Zydis 10 mg p.o. q.h.s.. 2. discharge tomorrow I spent ___20___ minutes with the patient and/or on the patient floor today, greater than?50% of which was spent counseling/coordinating care. Reason for contiued inpatient stay Substantial Risk for: inability to function, rapid decompensation and med/psych decompensation
[2021-05-16] MEDS: lisinopriL 40 MG TABLET PO (09:15)
[2021-05-16] MEDS: Flecainide Acetate 50 MG TABLET 100 MG PO ×2 (09:15→20:29)
[2021-05-16] MEDS: Apixaban 5 MG TABLET PO ×2 (09:15→20:29)
[2021-05-16] MEDS: Metoprolol Succinate ER 50 MG TAB.ER.24H PO (09:15)
[2021-05-16] MEDS: Cholecalciferol (Vitamin D3) 10 MCG TABLET PO (09:15)
[2021-05-16] MEDS: hydroCHLOROthiazide 25 MG TABLET PO (09:16)
[2021-05-16] MEDS: SITagliptin Phosphate 100 MG TABLET PO (09:16)
--- NOTE | 2021-05-16 16:12 | P.DS_ITS ---
DS: Providers Provider Date of Service: 05/16/21 Date of admission: 05/10/21 20:57 Date of discharge: 05/17/21 Primary care physician: Jude Campbell MD Consults: 05/10/21 22:45 Consult to Hospitalist Routine Consulting Provider: Hospitalist Reason For Exam: [place] [facility] [place]: Diagnosis Discharge Diagnosis (1) Dyslipidemia: Status: Acute (2) Diabetes mellitus: Status: Acute (3) Atrial fibrillation: Status: Acute (4) Psychosis: Status: Acute Mental Status Exam Mental Status Exam Patient Appearance: Well Grooomed Patient Orientation: Person and Situation Level of Consciousness: Awake Patient Behavior: Cooperative Mood Description: Calm Affect Description: Relaxed Ability to Follow Directions: Good Speech Pattern: Clear Hallucinations: None Delusions: Not Present Thought Process: Linear Thought Content: positive for Intact Judgement: Fair Judgement and Insight: improved DS: Summary Hospital Course Hospital Course: The patient is a 70-year-old female with no prior psychiatric condition transfer from [facility] after the patient complained of auditory hallucinations of voices of angels, bizarre delusions and disorganized behavior. Please see HPI from the admission note for further details. On admission, the patient continue olanzapine that was started at [facility]. We discontinued the a.m. dose sings over-sedated her too much and we lowered to Zyprexa Zydis 10 mg p.o. q.h.s.. The patient complained of auditory hallucinations for several days and she refused us to contact her . She was very angry that her and family were managing her case when she was at [facility]. The patient gave us permission to contact 1 of her sons was the point of contact of the family. Psycho education into her condition was provided and eventually the patient improved. She reported that she is not hearing auditory hallucinations anymore, she stated that she feels very clear and she felt embarrassed of her behavior before of the admission. Since there were no safety concerns discharge planning was discussed. Time spent discussing smoking cessation with patient: 3 to 10 minutes Status at Discharge Cognitive/behavioral status at discharge: Intact Functional status at discharge: independent ambulation Overall status at discharge: patient is back to baseline Time Spent with Patient Time attestation: Total time spent providing and/or coordinating discharge services: Time spent: Less than 30 minutes Discharge Plan Discharge Patient Disposition: Home, Self-Care Discharge Diagnosis: psychosis NOS Referrals: [facility] [Other] - 06/20/21 12:30 pm (Appointment scheduled for Sunday, June 20, 2021 @ 12:30 via TELEHEALTH with Michael Zelaya.) Jude Campbell MD [Primary Care Provider] - 1 Week Discharge Medications: New metoprolol succinate 50 mg Tablet Extended Release 24 Hr 50 mg PO DAILY 30 Days Qty: 30 0RF Protocol: Hold for SBP/HR < HOLD for SBP < : 90 HOLD for HR < : 60 flecainide 50 mg Tablet 100 mg PO BID 30 Days Qty: 120 0RF hydrochlorothiazide 25 mg Tablet 25 mg PO DAILY 30 Days Qty: 30 0RF lisinopril 40 mg Tablet 40 mg PO DAILY 30 Days Qty: 30 0RF Protocol: Hold for SBP< HOLD for SBP < : 90 cholecalciferol (vitamin D3) [Vitamin D3] 10 mcg (400 unit) Tablet 10 mcg PO DAILY 30 Days Qty: 30 0RF Januvia 100 mg Tablet 100 mg PO DAILY 30 Days Qty: 30 0RF Eliquis 5 mg Tablet 5 mg PO BID 30 Days Qty: 60 0RF olanzapine [Zyprexa] 10 mg tablet 10 mg PO BEDTIME Qty: 30 0RF Discharge Orders: Discharge Order (Routine); Ordered 05/17/21 Ordered By: Chip Vogel Diet: advance to usual diet Activity on Discharge: As tolerated Stand Alone Forms: Patient Portal Discharge page Care Plan Goals: care plan goals achieved in this admission Health Concerns: continue treatment with primary care physician Plan of Treatment: referred to outpatient services Assessment: elderly female with a late onset of psychosis that resolved with Zyprexa 10 mg p.o. q.h.s.. The patient is safe in the community ready for discharge
[2021-05-16 18:00] VITALS: BP 103/53; PULSE 60; RESP 17; TEMP 35.9; O2SAT 95
[2021-05-16] MEDS: OLANZapine ODT 10 MG TAB.RAPDIS TRANSLINGU (20:29)
[2021-05-16] MEDS: traZODone HCL 50 MG TABLET PO (20:29)
[2021-05-17 07:05] VITALS: BP 120/54; PULSE 52; RESP 18; TEMP 36.4; O2SAT 96
[2021-05-17] MEDS: Apixaban 5 MG TABLET PO (08:54)
[2021-05-17] MEDS: SITagliptin Phosphate 100 MG TABLET PO (08:54)
[2021-05-17] MEDS: lisinopriL 40 MG TABLET PO (08:54)
[2021-05-17] MEDS: Cholecalciferol (Vitamin D3) 10 MCG TABLET PO (08:54)
[2021-05-17] MEDS: hydroCHLOROthiazide 25 MG TABLET PO (08:54)
[2021-05-17] MEDS: Metoprolol Succinate ER 50 MG TAB.ER.24H PO (08:54)
[2021-05-17] MEDS: Flecainide Acetate 50 MG TABLET 100 MG PO (08:54)
--- NOTE | 2021-05-17 11:23 | PC.NURSE ---
Pt discharged to home with . Discharge paperwork reviewed with pt and . Pt states she is ready for discharge, feels safe with discharge plan. Pt and advised to call crisis numbers provided if needed. Pt with all belongings. Pt walked off the floor at 1113 with and belongings.
== END 2021-05-17 11:13 | disposition home or self-care (01) | DRG 885 ==
PROVIDERS: Admitting Provider Psychiatry & Neurology Psychiatry; PCP Internal Medicine; Visit Provider Psychiatry & Neurology Psychiatry
DX: F29 Unspecified psychosis not due to a substance or known physiological condition (principal); I48.91 Unspecified atrial fibrillation; E11.9 Type 2 diabetes mellitus without complications; E78.5 Hyperlipidemia, unspecified; Z79.01 Long term (current) use of anticoagulants; Z79.899 Other long term (current) drug therapy

== ENCOUNTER 2021-07-15 13:41 | Inpatient (IN) | payer MEDICARE, SELFPAY ==
[2021-07-15 14:14] VITALS: BP 111/56; PULSE 71; RESP 18; TEMP 36.6; O2SAT 97; BMI 39.5
[2021-07-15 14:30] LABS: Appearance Urine HAZY; Color Urine YELLOW; Glucose Urine UA NEG (NEG); Leukocyte Esterase Urine 3+ (NEG); Nitrite Urine NEG (NEG); PH 5.5 (5.0-8.0); Specific Gravity - Urine 1.025 (1.005-1.025); UACC Culture Trigger YES; Urine Blood NEG (NEG); Urine Ketones 5 MG/DL (NEG); Urine Protein TRACE MG/DL (NEG-TRACE)
[2021-07-15 14:41] LABS: Amorphous Sediment Urine TRACE /LPF; Bacteria Urine TRACE /LPF; Squamous Epithelial Cell Urine 2+ /LPF; WBC Urine 30-49 /HPF (0-4)
[2021-07-15 14:44] LABS: Amphetamine Screen Urine Not Detected (Not Detect); Barbiturates, Urine Not Detected (Not Detect); Benzodiazepines Screen Urine Not Detected (Not Detect); Cannabinoid Screen Urine Not Detected (Not Detect); Cocaine Screen Urine Not Detected (Not Detect); Fentanyl, urine Not Detected (Not Detect); Opiate Screen Urine Not Detected (Not Detect); Phencyclidine Screen Urine Not Detected (Not Detect)
[2021-07-15 14:46] LABS: COVID-19 Test Negative (Negative)
--- NOTE | 2021-07-15 15:10 | ED.PSYCH ---
HPI - Psych General Chief Complaint: Psychiatric Symptoms Stated Complaint: CRISIS Time Seen by Provider: 07/15/21 14:07 Source: patient Mode of arrival: ambulatory History of Present Illness HPI Narrative: 70-year-old female with a past medical history of hyperlipidemia, diabetes, AFib, psychosis, presenting to the ED with reporting auditory hallucinations x2 weeks. Hallucinations are lutheran based. Per patient stopped taking her Zyprexa about 2 weeks ago, suspected this is cause of new symptoms. Patient was found knocking on neighbor's doors staying priors, and yelling in restaurant. Denies SI/HI, EtOH or illicit drug use. Denies CP/SOB, abdominal pain, nausea/vomiting MD complaint: hallucinations Onset (ago): week(s) Related Data Home Medications Medication Instructions Recorded Confirmed chlorthalidone 25 mg tablet 1 tab PO DAILY 07/15/21 07/15/21 flecainide 100 mg tablet 1 tab PO BID 07/15/21 07/15/21 Previous Rx's Medication Instructions Recorded apixaban 5 mg tablet (Eliquis) 5 mg PO BID 30 Days #60 tab 05/16/21 cholecalciferol (vitamin D3) 10 10 mcg PO DAILY 30 Days #30 tab 05/16/21 mcg (400 unit) tablet (Vitamin D3) lisinopril 40 mg tablet 40 mg PO DAILY 30 Days #30 tab 05/16/21 metoprolol succinate 50 mg 50 mg PO DAILY 30 Days #30 tab 05/16/21 tablet,extended release 24 hr olanzapine 10 mg tablet (Zyprexa) 10 mg PO BEDTIME #30 tab 05/16/21 sitagliptin 100 mg tablet (Januvia) 100 mg PO DAILY 30 Days #30 tab 05/16/21 Allergies Allergy/AdvReac Type Severity Reaction Status Date / Time bee pollen [bee stings] Allergy Swelling Verified 05/10/21 21:25 codeine Allergy Anaphylaxis Verified 05/10/21 21:25 Review of Systems Review of Systems: Constitutional: No Fever, No Chills, No Fatigue, No Malaise ENT/Mouth: No Ear Pain, No Nasal Congestion, No sore throat, No Rhinorrhea, No Swallowing Difficulty Eyes: No Eye Pain, No Swelling, No Redness, No Vision Changes Cardiovascular: No Chest Pain, No SOB, No Edema, No Palpitations Respiratory: No Cough, No Dyspnea Gastrointestinal: No Nausea, No Vomiting, No Diarrhea, No Constipation, No Abdominal pain Genitourinary: No Dysuria, No Urinary Frequency, No Hematuria, No Flank Pain Musculoskeletal: No joint pain, No Myalgias, No Joint Swelling Skin: No Skin Lesions, No rash Neuro: No Weakness, No Dizziness, No Headache Psych: No Anxiety/Panic, No Depression, No SI/HI, +AH, No VH, No Social Issues Yes all other systems are reviewed and are negative [facility], [facility] Past Medical History Attestation statement: The following information was validated with the patient. Social History Social History Household Members: Spouse Housing: House Do you presently have visiting nurse or other home services: No Patient Tobacco Use Status: Never used Tobacco Advance Directives: Yes Advance Directives on File: Yes Advance Directives Date on File: 05/21/21 service: No Sexual orientation: Straight/Heterosexual Physical Exam Vital Signs: Vital Signs: Last Vital Signs Temp 97.8 F 07/15/21 14:14 Pulse 71 07/15/21 14:14 Resp 18 07/15/21 14:14 BP 111/56 L 07/15/21 14:14 Pulse Ox 97 07/15/21 14:14 BMI result Body Mass Index 39.5 Const: General: cooperative, healthy appearing and no acute distress Orientation/consciousness: patient oriented x3 Limitations: no limitations HEENT: Head: Yes normal to inspection and Yes atraumatic Ears: hearing grossly normal bilaterally General nose exam: Normal external nose present Face and sinus: Yes normal facial exam Eyes: General: appearance normal, both eyes and all related structures Pupils: Equal, round and reactive pupils present EOM: EOMs intact bilaterally Neck: Neck: Yes normal visual inspection and Yes no meningeal signs Resp: Effort & Inspection: normal respiratory effort and no respiratory distress Auscultation: clear to auscultation bilaterally, no rales, no rhonchi and no wheezes Cardio: Rate: regular rate Heart sounds: S1 normal heart sound present and S2 normal heart sound present GI: Inspection: Yes normal to inspection Palpation (GI): Soft to palpation, nontender, no guarding and not rigid Skin: Rashes: no rashes Wounds: no wounds Neuro: General: patient oriented x3, tone normal, no meningeal signs and CN's II-XI intact bilaterally Cranial nerves: Yes Equal, round and reactive pupils present Gait exam (Neuro): Normal gait present Extrem: General: Yes normal to inspection Psych: Speech and movement: Slowed movement present (Neuro) Affect: Indifferent affect present and Blunted affect present Attitude: cooperative Thought content: suicidality, no homicidality and Hallucination(s) present auditory Course Course Course Narrative: -1624--no leukocytosis. BUN 31 >likely from dehydration will push p.o. fluids in POD -AST/ALT mildly elevated. UA infected, patient initiated on Ceftin 250 b.i.d. x 7 days Patient is medically cleared to be evaluated by crisis. Physician observation initiated at 16:26 -2100--ED care transferred to BEATA Tubbs pending crisis evaluation MDM - Psych MDM Narrative Medical decision making narrative: 70-year-old female with a past medical history of hyperlipidemia, diabetes, AFib, psychosis, presenting to the ED with reporting auditory hallucinations x2 weeks. On exam vital signs stable, NAD/nontoxic-appearing, patient experiencing auditory hallucinations during exam, slowed speech, blunted. Concern for acute psychosis due to medication noncompliance. Plan: EKG, labs, UA, drug screen, crisis consult Differential Diagnosis Differential diagnosis: Likely acute psychosis Medical Records Attestation: I reviewed the patient's medical records. Lab Data Attestation: I reviewed the patient's lab results. Result diagrams: 07/15/21 15:12 07/15/21 15:12 Labs: Lab Results 07/15/21 07/15/21 07/15/21 Range/Units 14:23 14:23 14:23 WBC (4.8-10.8) X10*3/uL RBC (4.20-5.50) X10*6/uL Hgb (12.0-16.0) g/dl Hct (37.0-47.0) % MCV (80.0-98.0) fL MCH (27.0-33.0) pg MCHC (31.0-35.0) g/dl RDW (11.0-16.0) % Plt Count (160-400) X10*3/uL MPV (9.4-12.3) fL Immature Gran % (Auto) (0.0-0.4) % Neut % (Auto) (45-73) % Lymph % (Auto) (20-40) % [place] % (Auto) (2-11) % Eos % (Auto) (0-4) % Baso % (Auto) (0-2) % Lymph # (Auto) (1.2-4.9) X10*3/uL [place] # (Auto) (0.1-1.2) X10*3/uL Eos # (Auto) (0.0-0.4) X10*3/uL Baso # (Auto) (0.0-0.2) X10*3/uL Abs Immat Gran (auto) (0.00-0.03) X10*3/uL Absolute Neuts (auto) (2.0-8.3) x10*3/uL Absolute Nucleated RBC (0.0-0.012) X10*3/uL Nucleated RBC % (auto) (0.0-0.2) /100WBC Sodium (135-145) mmol/L Potassium (3.3-5.1) mmol/L Chloride (96-108) mmol/L Carbon Dioxide (22-29) mmol/L Anion Gap (12-20) BUN (9-16) mg/dL Creatinine (0.5-1.4) mg/dL Estim Creat Clear Calc Estimated GFR Random Glucose (60-115) mg/dL Calcium (8.4-10.2) mg/dL Magnesium (1.6-2.6) mg/dL Total Bilirubin (0.0-1.0) mg/dL Direct Bilirubin (0.0-0.5) mg/dL AST (5-31) U/L ALT (0-31) U/L Alkaline Phosphatase (39-117) U/L Total Protein (6.5-8.0) g/dL Albumin (3.5-5.0) g/dL Urine Color YELLOW Urine Appearance HAZY Urine pH 5.5 (5.0-8.0) Ur Specific [place] 1.025 (1.005-1.025) Urine Protein TRACE (NEG-TRACE) MG/DL Urine Glucose (UA) NEG (NEG) MG/DL Urine Ketones 5 (NEG) MG/DL Urine Blood NEG (NEG) Urine Nitrite NEG (NEG) Ur Leukocyte Esterase 3+ H (NEG) Urine RBC 1-4 (0) /HPF Urine WBC 30-49 H (0-4) /HPF Ur Squamous Epith Cells 2+ /LPF Amorphous Sediment TRACE /LPF Urine Bacteria TRACE /LPF Urine Opiates Screen Not Detected (Not Detect) Urine Fentanyl Screen Not Detected (Not Detect) Ur Barbiturates Screen Not Detected (Not Detect) Ur Phencyclidine Scrn Not Detected (Not Detect) Ur Amphetamines Screen Not Detected (Not Detect) U Benzodiazepines Scrn Not Detected (Not Detect) Urine Cocaine Screen Not Detected (Not Detect) U Marijuana (THC) Screen Not Detected (Not Detect) Ethyl Alcohol mg/dL COVID-19 (KIRTI) Negative (Negative) COVID-19 Clin Com See Note 07/15/21 07/15/21 07/15/21 Range/Units 15:12 15:12 15:12 WBC 10.1 (4.8-10.8) X10*3/uL RBC 5.25 (4.20-5.50) X10*6/uL Hgb 14.4 (12.0-16.0) g/dl Hct 42.8 (37.0-47.0) % MCV 81.5 (80.0-98.0) fL MCH 27.4 (27.0-33.0) pg MCHC 33.6 (31.0-35.0) g/dl RDW 12.6 (11.0-16.0) % Plt Count 293 (160-400) X10*3/uL MPV 9.7 (9.4-12.3) fL Immature Gran % (Auto) 0.3 (0.0-0.4) % Neut % (Auto) 67.4 (45-73) % Lymph % (Auto) 21.5 (20-40) % [place] % (Auto) 8.2 (2-11) % Eos % (Auto) 2.0 (0-4) % Baso % (Auto) 0.6 (0-2) % Lymph # (Auto) 2.2 (1.2-4.9) X10*3/uL [place] # (Auto) 0.8 (0.1-1.2) X10*3/uL Eos # (Auto) 0.2 (0.0-0.4) X10*3/uL Baso # (Auto) 0.1 (0.0-0.2) X10*3/uL Abs Immat Gran (auto) 0.03 (0.00-0.03) X10*3/uL Absolute Neuts (auto) 6.8 (2.0-8.3) x10*3/uL Absolute Nucleated RBC 0.000 (0.0-0.012) X10*3/uL Nucleated RBC % (auto) 0.0 (0.0-0.2) /100WBC Sodium 137 (135-145) mmol/L Potassium 3.8 (3.3-5.1) mmol/L Chloride 100 (96-108) mmol/L Carbon Dioxide 26 (22-29) mmol/L Anion Gap 15 (12-20) BUN 31 H (9-16) mg/dL Creatinine 1.33 (0.5-1.4) mg/dL Estim Creat Clear Calc 51.1 Estimated GFR 40 Random Glucose 92 (60-115) mg/dL Calcium 10.2 (8.4-10.2) mg/dL Magnesium 1.6 (1.6-2.6) mg/dL Total Bilirubin 1.6 H (0.0-1.0) mg/dL Direct Bilirubin 0.5 (0.0-0.5) mg/dL AST 37 H (5-31) U/L ALT 36 H (0-31) U/L Alkaline Phosphatase 86 (39-117) U/L Total Protein 7.9 (6.5-8.0) g/dL Albumin 4.8 (3.5-5.0) g/dL Urine Color Urine Appearance Urine pH (5.0-8.0) Ur Specific [place] (1.005-1.025) Urine Protein (NEG-TRACE) MG/DL Urine Glucose (UA) (NEG) MG/DL Urine Ketones (NEG) MG/DL Urine Blood (NEG) Urine Nitrite (NEG) Ur Leukocyte Esterase (NEG) Urine RBC (0) /HPF Urine WBC (0-4) /HPF Ur Squamous Epith Cells /LPF Amorphous Sediment /LPF Urine Bacteria /LPF Urine Opiates Screen (Not Detect) Urine Fentanyl Screen (Not Detect) Ur Barbiturates Screen (Not Detect) Ur Phencyclidine Scrn (Not Detect) Ur Amphetamines Screen (Not Detect) U Benzodiazepines Scrn (Not Detect) Urine Cocaine Screen (Not Detect) U Marijuana (THC) Screen (Not Detect) Ethyl Alcohol < 10 mg/dL COVID-19 (KIRTI) (Negative) COVID-19 Clin Com Discharge Plan Discharge Clinical Impression: Auditory hallucinations, Acute UTI Patient Disposition: Still a Patient Prescriptions: No Action chlorthalidone 25 mg tablet 1 tab PO DAILY 0RF flecainide 100 mg tablet 1 tab PO BID 0RF metoprolol succinate 50 mg Tablet Extended Release 24 Hr 50 mg PO DAILY 30 Days Qty: 30 0RF Protocol: Hold for SBP/HR < HOLD for SBP < : 90 HOLD for HR < : 60 lisinopril 40 mg Tablet 40 mg PO DAILY 30 Days Qty: 30 0RF Protocol: Hold for SBP< HOLD for SBP < : 90 cholecalciferol (vitamin D3) [Vitamin D3] 10 mcg (400 unit) Tablet 10 mcg PO DAILY 30 Days Qty: 30 0RF Januvia 100 mg Tablet 100 mg PO DAILY 30 Days Qty: 30 0RF Eliquis 5 mg Tablet 5 mg PO BID 30 Days Qty: 60 0RF olanzapine [Zyprexa] 10 mg tablet 10 mg PO BEDTIME Qty: 30 0RF
[2021-07-15 15:16] LABS: MANUAL DIFF FLAG NO
[2021-07-15 15:17] LABS: Basophils Absolute Auto 0.1 X10*3/uL (0.0-0.2); Basophils Percent Auto 0.6 % (0-2); Eosinophils Absolute Auto 0.2 X10*3/uL (0.0-0.4); Hematocrit 42.8 % (37.0-47.0); Hemoglobin 14.4 g/dl (12.0-16.0); Imm Gran Abs Auto 0.03 X10*3/uL (0.00-0.03); Imm Gran Pct Auto 0.3 % (0.0-0.4); Lymphocytes Absolute Auto 2.2 X10*3/uL (1.2-4.9); Lymphocytes Percent Auto 21.5 % (20-40); Mean Corpuscular HGB Conc 33.6 g/dl (31.0-35.0); Mean Corpuscular Hemoglobin 27.4 pg (27.0-33.0); Mean Corpuscular Volume 81.5 fL (80.0-98.0); Mean Platelet Volume 9.7 fL (9.4-12.3); Monocytes Absolute Auto 0.8 X10*3/uL (0.1-1.2); Monocytes Percent Auto 8.2 % (2-11); Neutrophils Absolute Auto 6.8 x10*3/uL (2.0-8.3); Neutrophils Percent Auto 67.4 % (45-73); Platelet Count 293 X10*3/uL (160-400); Red Blood Count 5.25 X10*6/uL (4.20-5.50); Red Cell Distribution Width 12.6 % (11.0-16.0); White Blood Count 10.1 X10*3/uL (4.8-10.8)
[2021-07-15 15:29] LABS: Ethanol < 10 mg/dL
[2021-07-15 15:33] LABS: Alanine Aminotransferase 36 U/L (0-31); Albumin Level 4.8 g/dL (3.5-5.0); Alkaline Phosphatase 86 U/L (39-117); Anion Gap 15 (12-20); Aspartate Amino Transferase 37 U/L (5-31); Bilirubin Direct 0.5 mg/dL (0.0-0.5); Bilirubin Total 1.6 mg/dL (0.0-1.0); Blood Urea Nitrogen 31 mg/dL (9-16); Calcium 10.2 mg/dL (8.4-10.2); Carbon Dioxide 26 mmol/L (22-29); Chloride 100 mmol/L (96-108); Creatinine Clr Calc Pharmacy 51.1; Estimated Glomerular Filt Rate 40; Glucose Random 92 mg/dL (60-115); Magnesium 1.6 mg/dL (1.6-2.6); Potassium 3.8 mmol/L (3.3-5.1); Sodium 137 mmol/L (135-145); Total Protein 7.9 g/dL (6.5-8.0)
--- NOTE | 2021-07-15 16:58 | PHA.MEDREC ---
Pharmacy Consult ? Medication Reconciliation Pharmacy has completed the medication reconciliation.
--- NOTE | 2021-07-15 17:58 | PC.NURSE ---
Patient at bedside this nurse discussed eta for bhn with and that if any information was needed they could call him at home. patient voiced frustration regarding room setup and this nurse educated that room was setup for safety. Patient was given extra blanket, pudding and a water pitcher.
[2021-07-15] MEDS: OLANZapine 10 MG TABLET PO (20:40)
[2021-07-15] MEDS: Apixaban 5 MG TABLET PO (20:40)
[2021-07-15] MEDS: Flecainide Acetate 50 MG TABLET 100 MG PO (20:40)
--- NOTE | 2021-07-15 22:13 | ECG_ITS ---
Test Reason : MEDICAL CLEARANCE Blood Pressure : / mmHG Vent. Rate : 060 BPM Atrial Rate : 060 BPM P-R Int : 206 ms QRS Dur : 096 ms QT Int : 422 ms P-R-T Axes : -23 -29 -21 degrees QTc Int : 422 ms Normal sinus rhythm Incomplete right bundle branch block Moderate voltage criteria for LVH, may be normal variant ( R in aVL , Superior product ) Anterolateral infarct , age undetermined Abnormal ECG No previous ECGs available Referred By: Suly Pelletier Electronically Signed By:Dung Murphy
[2021-07-16 06:28] VITALS: BP 111/63; PULSE 66; RESP 16; TEMP 36.7; O2SAT 96
--- NOTE | 2021-07-16 06:50 | PC.NURSE ---
Patient slept through the night, no distress observed/reported, medication complaint, disposition by [facility] section 12 inpatient bed search, VSS, positive for UTI being treated with antibiotic, behavior non concerning, thought content religiously paranoid, will continue to monitor.
[2021-07-16 08:34] VITALS: BP 104/49; PULSE 66; RESP 16; TEMP 36.8; O2SAT 96
[2021-07-16] MEDS: lisinopriL 40 MG TABLET PO (09:12)
[2021-07-16] MEDS: hydroCHLOROthiazide 25 MG TABLET PO (09:12)
[2021-07-16] MEDS: Metoprolol Succinate ER 50 MG TAB.ER.24H PO (09:12)
[2021-07-16] MEDS: Apixaban 5 MG TABLET PO ×2 (09:12→21:18)
[2021-07-16] MEDS: Flecainide Acetate 50 MG TABLET 100 MG PO ×2 (09:12→21:17)
[2021-07-16] MEDS: Cholecalciferol (Vitamin D3) 10 MCG TABLET PO (09:12)
[2021-07-16] MEDS: SITagliptin Phosphate 100 MG TABLET PO (09:12)
--- NOTE | 2021-07-16 09:30 | PC.NURSE ---
po fluids encouraged.
--- NOTE | 2021-07-16 09:35 | PC.NURSE ---
pt is a/o x 3 no sob/maria t noted skin pink warm dry speaks in full sentences. denies any si/hi. pt's is at bedside.
--- NOTE | 2021-07-16 13:25 | PC.NURSE ---
rn to rn given to salvatore funes aware of plan of care for transfer to .
[2021-07-16 13:37] VITALS: BP 117/60; PULSE 61; RESP 16; TEMP 36.4; O2SAT 95
[2021-07-16] MEDS: LORazepam 0.5 MG TABLET PO ×2 (16:11→21:17)
[2021-07-16 18:11] VITALS: BP 106/59; PULSE 71; RESP 18; TEMP 36.6
--- NOTE | 2021-07-16 18:38 | PC.ADMIT ---
Pt is 70 year old female admitted to on a 12b for psychosis. she is alert & oriented to self only . pt has past medical histoy of diabetes mellitus , Afib , dyslipidemia, Pt was accompanied by who reported non compliance to medication , auditory hallucinations , delusions and orthodox preoccupation. Pt was thought blocking and is internally preoccupied. Patient denied anxiety , depression and SI. reports that she asks people to say sinner's prayer and gets angry when they decline. Pt is on antibiotics for UTI . Patient history was provided by , she did not participate fully in the admission process. Patient unable to sign legal forms
[2021-07-16] MEDS: OLANZapine 10 MG TABLET PO (21:18)
[2021-07-17 09:13] LABS: Alanine Aminotransferase 37 U/L (0-31); Albumin Level 4.6 g/dL (3.5-5.0); Alkaline Phosphatase 82 U/L (39-117); Anion Gap 15 (12-20); Aspartate Amino Transferase 33 U/L (5-31); Bilirubin Direct 0.5 mg/dL (0.0-0.5); Bilirubin Total 1.5 mg/dL (0.0-1.0); Blood Urea Nitrogen 40 mg/dL (9-16); Calcium 10.3 mg/dL (8.4-10.2); Carbon Dioxide 25 mmol/L (22-29); Chloride 99 mmol/L (96-108); Cholesterol 207 mg/dL; Creatinine Clr Calc Pharmacy 39.8; Estimated Glomerular Filt Rate 30; Glucose Fasting 137 mg/dL (60-99); HDL Cholesterol 37 mg/dL; LDL Cholesterol Calculated 142 mg/dl; Magnesium 1.6 mg/dL (1.6-2.6); Potassium 4.3 mmol/L (3.3-5.1); Sodium 135 mmol/L (135-145); Total Protein 7.5 g/dL (6.5-8.0); Triglycerides 144 mg/dL
[2021-07-17 09:33] LABS: Free T4 (Free Thyroxine) 1.28 ng/dL (0.71-1.85); Thyroid Stimulating Hormone 1.64 uIU/mL (0.32-4.0)
[2021-07-17] MEDS: Flecainide Acetate 50 MG TABLET 100 MG PO (09:33)
[2021-07-17] MEDS: Cholecalciferol (Vitamin D3) 10 MCG TABLET PO (09:34)
[2021-07-17] MEDS: SITagliptin Phosphate 100 MG TABLET PO (09:34)
[2021-07-17] MEDS: Apixaban 5 MG TABLET PO (09:35)
[2021-07-17] MEDS: LORazepam 0.5 MG TABLET PO ×2 (09:35→14:47)
[2021-07-17] MEDS: hydroCHLOROthiazide 25 MG TABLET PO (09:35)
[2021-07-17 09:57] LABS: Folate > 20.0 ng/mL (> or = 4.0); Vitamin B12 759 pg/mL (200-900)
[2021-07-17 10:33] LABS: Estimated Average Glucose 117 mg/dL; Hemoglobin A1c % 5.7 %
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
[2021-07-17 11:03] VITALS: BP 108/58; PULSE 70; RESP 16; TEMP 36.7; O2SAT 94
[2021-07-18 06:00] VITALS: BP 141/82; PULSE 81; RESP 16; O2SAT 96
[2021-07-18] MEDS: Flecainide Acetate 50 MG TABLET 100 MG PO ×2 (08:19→20:26)
[2021-07-18] MEDS: LORazepam 0.5 MG TABLET PO ×3 (08:19→20:27)
[2021-07-18] MEDS: Apixaban 5 MG TABLET PO ×2 (08:19→20:27)
[2021-07-18] MEDS: SITagliptin Phosphate 100 MG TABLET PO (08:19)
[2021-07-18] MEDS: Cholecalciferol (Vitamin D3) 10 MCG TABLET PO (08:19)
[2021-07-18 09:38] LABS: Anion Gap 16 (12-20); Blood Urea Nitrogen 31 mg/dL (9-16); Carbon Dioxide 25 mmol/L (22-29); Chloride 99 mmol/L (96-108); Creatinine Clr Calc Pharmacy 68.7; Estimated Glomerular Filt Rate 56; Sodium 136 mmol/L (135-145)
--- NOTE | 2021-07-18 10:41 | P.PNPSI_ITS ---
Subjective Subjective Date of Service: 07/18/21 Reason For Visit: Psychosis Interim History: On approach, patient sitting on the edge of her bed staring at the ceiling. She did not respond to contract writer's hello, her name or inquiry and for several moments stared at the ceiling in silence. Patient then turned and looked at contract writer and said hello using contract writer's name. She was glad to hear that her kidney function was doing better and she talked about how she complied with drinking fluids last night. Moments earlier patient had yelled very loudly and can be heard down the [place]irez, yelling hallelujah, hallelujah, hallelujah. She said that the urging her to praise God wells up and she just feels a tremendous desire to shout out loud. Initially patient says that she no longer has auditory hallucinations. However patient is clearly internally preoccupied and gets distracted in mid sentence, going silent and then coming back to the conversation. She eventually said she does continue to hear God's voice telling her certain things. Patient was very persistent trying to get this contract writer to say a certain prayer and talked about whether the contract writer was going to counts include [facility] beds at the [facility]. As the discussion continued she said she could except that other people might feel uncomfortable if she yells praises out loud and would be willing to do these things more quietly. Mental Status Exam Mental Status Exam Narrative: Pt is alert and oriented; behavior is intermittently cooperative, friendly, religiously pre-occupied; patient is not in distress; dressed in casual attire with unkempt hair but adequate hygiene; mood is described as good and expansive to blunted; eye contact appropriate when talking; other times, stares at the ceiling; Speech is normal rate, volume and prosody and not pressured; psychomotor agitation intermittently present; thought process is goal directed; Thought content perseverative on jain themes; can be pertinent to relevant topics; some grandiosity; denies any SI/HI. AH and patient appears internally preoccupied.? Patients insight and judgment are impaired. Diagnostics Vital Signs (24Hr): Vital Signs - 24 hr 07/17/21 11:03 07/18/21 06:00 Temperature 98.1 F Pulse Rate 70 81 Respiratory Rate 16 16 Blood Pressure 108/58 L 141/82 H Pulse Oximetry 94 96 BMI result Body Mass Index 39.5 Labs Results: 07/15/21 15:12 07/18/21 08:45 Labs: Laboratory Results - last 48 hr 07/15/21 07/17/21 07/17/21 15:12 08:14 08:14 Sodium 135 Potassium 4.3 Chloride 99 Carbon Dioxide 25 Anion Gap 15 BUN 40 H Creatinine 1.71 H Estim Creat Clear Calc 39.8 Estimated GFR 30 Fasting Glucose 137 H Estimat Average Glucose 117 Hemoglobin A1c % 5.7 Calcium 10.3 H Magnesium 1.6 1.6 Total Bilirubin 1.6 H 1.5 H Direct Bilirubin 0.5 0.5 AST 37 H 33 H ALT 36 H 37 H Alkaline Phosphatase 86 82 Total Protein 7.9 7.5 Albumin 4.8 4.6 Triglycerides 144 Cholesterol 207 LDL Cholesterol, Calc 142 HDL Cholesterol 37 Vitamin B12 Folate TSH 1.64 Free T4 1.28 07/17/21 07/18/21 08:14 08:45 Sodium 136 Potassium 4.0 Chloride 99 Carbon Dioxide 25 Anion Gap 16 BUN 31 H Creatinine 0.99 Estim Creat Clear Calc 68.7 Estimated GFR 56 Fasting Glucose Estimat Average Glucose Hemoglobin A1c % Calcium Magnesium Total Bilirubin Direct Bilirubin AST ALT Alkaline Phosphatase Total Protein Albumin Triglycerides Cholesterol LDL Cholesterol, Calc HDL Cholesterol Vitamin B12 759 Folate > 20.0 TSH Free T4 Medications Medications Current Medications Acetaminophen (Acetaminophen 325 Mg Tablet) 650 mg PO Q6H PRN PRN Reason: Headache/Pain Mild Scale (1-3) Al Hydroxide/Mg Hydroxide (Magnesium Hydrox/Alum Hydrox 30 Ml Oral.Susp) 30 ml PO Q6H PRN PRN Reason: Heartburn/Nausea Apixaban (Apixaban 5 Mg Tablet) 5 mg PO BID [facility] Last Admin: 07/18/21 08:19 Dose: 5 mg Documented by: Cefuroxime Axetil (Cefuroxime Axetil 250 Mg Tablet) 250 mg PO Q12H [facility] Last Admin: 07/18/21 08:19 Dose: 250 mg Documented by: Flecainide Acetate (Flecainide Acetate 50 Mg Tablet) 100 mg PO BID [facility] Last Admin: 07/18/21 08:19 Dose: 100 mg Documented by: Lorazepam (Lorazepam 0.5 Mg Tablet) 0.5 mg PO Q6H [facility] Last Admin: 07/18/21 08:19 Dose: 0.5 mg Documented by: Magnesium Hydroxide (Milk Of Magnesia 30 Ml Oral.Susp) 30 ml PO DAILY PRN PRN Reason: Constipation Olanzapine (Olanzapine 10 Mg Tablet) 10 mg PO BEDTIME [facility] Last Admin: 07/18/21 00:33 Dose: Not Given Documented by: Pharmacy Consult (Consult Rx Perform Med Rec) 1 each MISCELLANE ONCE PRN PRN Reason: Consult order Sitagliptin Phosphate (Sitagliptin Phosphate 100 Mg Tablet) 100 mg PO DAILY [facility] Last Admin: 07/18/21 08:19 Dose: 100 mg Documented by: Trazodone HCl (Trazodone Hcl 50 Mg Tablet) 50 mg PO BEDTIME PRN PRN Reason: Insomnia Vitamin D (Cholecalciferol (Vitamin D3) 10 Mcg Tablet) 10 mcg PO DAILY [facility] Last Admin: 07/18/21 08:19 Dose: 10 mcg Documented by: Allergies Allergies Allergy/AdvReac Type Severity Reaction Status Date / Time bee pollen [bee stings] Allergy Swelling Verified 05/10/21 21:25 codeine Allergy Anaphylaxis Verified 05/10/21 21:25 Assessment & Plan Assessment & Plan (1) Bipolar 1 disorder with moderate jarrett: Status: Acute Code(s): F31.12 - Bipolar disorder, current episode manic without psychotic features, moderate Plan Patient is a 70-year-old female with history of hypertension, type 2 diabetes, AFib and with limited psychiatric history, 1st having psychotic symptoms this past February 2021 and then again admitted April on , who presents for 2 weeks of worsening psychotic symptoms in the face of going off her Zyprexa and getting a UTI. -patient's current presentation is very similar to her last admission during which time Zyprexa resolved symptoms; patient is currently willing taking Zyprexa. She is also taking antibiotics for UTI which is very likely contributory -currently patient is moderately manic with psychotic symptoms; will continue treatment 07/18 patient remains religiously preoccupied with some disorganized behaviors, internally preoccupied and with auditory hallucinations. She is also able to be goal oriented in discussions. She says she will continue taking Zyprexa and says she will modify her behaviors so they are not startling to others. pt on 12 b. will likely switch to Zydis to ensure adherence Plan: 12B Q 15 minute checks Continue Zyprexa 10 mg q.h.s.; consider changing to Zydis to ensure adherence. Continue Ceftin 250mg BID for UTI LEONARD resolved and Bun/Cr returned to within normal limits; case discussed with Dr. Bourgeois who recommends continuing to hold antihypertensives, restarting metoprolol tomorrow morning and then rechecking kidney function; if remains nor mal limits, restarted lisinopril and chlorthalidone continue home meds: HOLD chlorthalidone 25 mg tablet daily HOLDlisinopril 40 mg tablet daily Restart metoprolol succinate XR 50 mg daily sitagliptin 100 mg tablet (Januvia) daily flecainide 100 mg tablet b.i.d. apixaban 5 mg tablet (Eliquis) B.i.d. cholecalciferol daily I spent minutes with the patient and/or on the patient floor today, greater than?50% of which was spent counseling/coordinating care. Patient educated on: diagnosis Informed Consent: does not understand Reason for contiued inpatient stay Substantial Risk for: rapid decompensation
--- NOTE | 2021-07-18 10:58 | HO.PM.IMCN ---
History of Present Illness Data of Consult Service Date: 07/18/21 Primary Care Provider: Jolie Campbell MD HPI Reason for consult: LEONARD This is a 70 yo F with a PMH of HTN, DM, PAF on Eliquis, HLD who is admitted to . Medical consult requested for LEONARD. It appears that the patient presented to [facility] ED on 07/15/21 for psychiatric symptoms. At that time, her SCr was 1.33 and repeat was 1.71 on 07/17 She did receive her HCTZ for 2 days, lisinopril for 1 day and metoprolol for 1 day. She did have relatively low BP and these were all discontinued since. She was given 1L of IVF on 07/17 with resolution of LEONARD down to 0.99. Pt is seen and examined in her room. Sitter is bedside. She is slow in her reponses but does state that she is complaint with her medications. She does endorse some dysuria and frequency but otherwise no other physical complaints. Review of Systems Review of Systems: negative except HPI [facility] Medical History (Updated 07/18/21 @ 11:08 by Yo Bourgeois MD) Bipolar 1 disorder with moderate jarrett Social History Household Members: Spouse Housing: House Do you presently have visiting nurse or other home services: No Patient Tobacco Use Status: Never used Tobacco Use of substances other than those prescribed or required for medical reasons: No Currently Displaying Signs/Symptoms of Drug Intoxication Withdrawal: No Have you been hit, kicked, punched, or otherwise hurt by someone within the past year? If so, by whom?: No Do you feel safe in your current relationship?: No Is there a partner from a previous relationship who is making you feel unsafe now?: No Are you made to feel afraid or neglected: No [facility] Practices: Hinduism Advance Directives: Yes Advance Directives on File: Yes Advance Directives Date on File: 05/21/21 Healthcare Proxy: Yes ([facility] [phone]) Guardian: No Do you have thoughts of harming others: None Do you have a plan to hurt others: No Plan Recently lost weight without trying: No Patient : No : No Poor oral hygiene: No service: No Sexual orientation: Straight/Heterosexual Meds Allergies Allergy/AdvReac Type Severity Reaction Status Date / Time bee pollen [bee stings] Allergy Swelling Verified 05/10/21 21:25 codeine Allergy Anaphylaxis Verified 05/10/21 21:25 Active Medications: Current Medications Acetaminophen (Acetaminophen 325 Mg Tablet) 650 mg PO Q6H PRN PRN Reason: Headache/Pain Mild Scale (1-3) Al Hydroxide/Mg Hydroxide (Magnesium Hydrox/Alum Hydrox 30 Ml Oral.Susp) 30 ml PO Q6H PRN PRN Reason: Heartburn/Nausea Apixaban (Apixaban 5 Mg Tablet) 5 mg PO BID [facility] Last Admin: 07/18/21 08:19 Dose: 5 mg Documented by: Cefuroxime Axetil (Cefuroxime Axetil 250 Mg Tablet) 250 mg PO Q12H [facility] Last Admin: 07/18/21 08:19 Dose: 250 mg Documented by: Flecainide Acetate (Flecainide Acetate 50 Mg Tablet) 100 mg PO BID [facility] Last Admin: 07/18/21 08:19 Dose: 100 mg Documented by: Lorazepam (Lorazepam 0.5 Mg Tablet) 0.5 mg PO Q6H [facility] Last Admin: 07/18/21 08:19 Dose: 0.5 mg Documented by: Magnesium Hydroxide (Milk Of Magnesia 30 Ml Oral.Susp) 30 ml PO DAILY PRN PRN Reason: Constipation Olanzapine (Olanzapine 10 Mg Tablet) 10 mg PO BEDTIME [facility] Last Admin: 07/18/21 00:33 Dose: Not Given Documented by: Pharmacy Consult (Consult Rx Perform Med Rec) 1 each MISCELLANE ONCE PRN PRN Reason: Consult order Sitagliptin Phosphate (Sitagliptin Phosphate 100 Mg Tablet) 100 mg PO DAILY [facility] Last Admin: 07/18/21 08:19 Dose: 100 mg Documented by: Trazodone HCl (Trazodone Hcl 50 Mg Tablet) 50 mg PO BEDTIME PRN PRN Reason: Insomnia Vitamin D (Cholecalciferol (Vitamin D3) 10 Mcg Tablet) 10 mcg PO DAILY [facility] Last Admin: 07/18/21 08:19 Dose: 10 mcg Documented by: Home Medications Medication Instructions Recorded Confirmed Last Taken Type chlorthalidone 25 mg tablet 1 tab PO DAILY 07/15/21 07/15/21 Unknown History flecainide 100 mg tablet 1 tab PO BID 07/15/21 07/15/21 Unknown History Physical Exam Vital Signs and Narrative: Vital Signs: Last Vital Signs Temp 98.1 F 07/17/21 11:03 Pulse 81 07/18/21 06:00 Resp 16 07/18/21 06:00 BP 141/82 H 07/18/21 06:00 Pulse Ox 96 07/18/21 06:00 BMI result Body Mass Index 39.5 Const: Other: General - no acute distress, appears comfortable Cardiovascular - S1S2 Lungs - normal respiratory effort, clear to auscultation bilaterally, no wheezing Abdomen - soft, nontender, no rebound or guarding Extremities - no edema bilaterally Neuro - awake and alert, no focal deficits Results Labs CBC and Chem 7: 07/15/21 15:12 07/18/21 08:45 Labs: Laboratory Results - last 24 hr 07/18/21 08:45 Anion Gap 16 Estim Creat Clear Calc 68.7 Estimated GFR 56 Assessment and Plan (1) LEONARD (acute kidney injury): Status: Acute Plan 70 yo F with HTN, HLD, DM, PAF on eliquis admitted to . Consult requested for LEONARD. 1. LEONARD likely pre-renal and now resolved continue to encourage oral hydration hold lisinopril / hctz for now -- repeat SCr in 3-4 days and if in the normal range and pt not hypotensive -- restart hctz / lisinopril. If patient discharged prior to this, hold hctz/lisinopril on d/c and have repeat blood work completed with PCP. 2. UTI +symptoms of dysuria / frequency Urine C&S contminated agree with 5-7d course of ceftin 3. PAF on ELiquis/flecainide start metoprolol 25mg tomorrow AM; if BP remains in 130/80 range, increase it back to 50mg in 1-2 day. Will sign off at this time. Please reconsult / tigerconnect PRN.
--- NOTE | 2021-07-18 14:53 | MHC.CLN ---
NUTRITION CONSULT FOR DIABETES. DIET=REGUALR. PATIENT TAKES JANUVIA HERE AND AT HOME. 07/17/21 A1c=5.7 SHOWING VERY GOOD BLOOD GLUCOSE CONTROL. RANDOM GLUCOSE=92; FASTING MBSISOA=666. VISITED PATIENT AT LUNCH. DID NOT SPEAK TO OR LOOK AT THIS TEST BORE HELPER AND SLOWLY TURNED BODY AWAY. RECOMMEND CONTINUE REGULAR DIET SINCE UNSURE IF DIET CHANGE COULD TRIGGER BEHAVIOR AND BLOOD SUGARS APPEAR CONTROLLED.
[2021-07-18 19:07] VITALS: BP 156/60; PULSE 80
[2021-07-18] MEDS: OLANZapine ODT 10 MG TAB.RAPDIS TRANSLINGU (20:27)
[2021-07-19 06:00] VITALS: BP 151/80; PULSE 77; RESP 16
[2021-07-19] MEDS: Metoprolol Succinate ER 25 MG TAB.ER.24H PO (08:39)
[2021-07-19] MEDS: Flecainide Acetate 50 MG TABLET 100 MG PO ×2 (08:39→20:47)
[2021-07-19] MEDS: SITagliptin Phosphate 100 MG TABLET PO (08:39)
[2021-07-19] MEDS: Apixaban 5 MG TABLET PO ×2 (08:39→20:47)
[2021-07-19] MEDS: LORazepam 0.5 MG TABLET PO (08:39)
[2021-07-19] MEDS: Cholecalciferol (Vitamin D3) 10 MCG TABLET PO (08:40)
--- NOTE | 2021-07-19 12:53 | HO.PSYCHPN ---
Subjective Subjective Date of Service: 07/19/21 Reason For Visit: Psychosis Interim History: Patient remains internally preoccupied, hyper-perseverative on yazidi themes and trying to get writer technical publications, staff and other patients to say a specific prayer. Patient will intermittently stop talking and blankly stare at the wall during which time she is unaware of her surroundings. She continues to have auditory hallucinations of heavenly angels. Patient is intermittently intrusive to other peers repeatedly trying to get them to pray with her even when they do not want to; patient needs to be prompted to drink fluids and eat her food as she will get internally distracted and not eat or drink. Patient's daughter Amaris visited and told writer technical publications that upon reflection she thinks her mother has had hypomanic episodes throughout her life, about 4 per year. She says her mother has several hobbies and is actually quite talented at writing children's books, making quilts, painting and making [place] or[place]. However for about 1 to 2 weeks every several months, instead of making her usual 1 quilt, she will make 10 of them, be extra excited about it and describing the details of it to others, unaware that it is excessive and that she is repeating herself. Same with books or paintings were she will be overly productive. Daughter says that this has not interrupt her function in other parts of her life and that her pieces are still excellently done and it has never raised any concerns other than in hindsight and in context of this current manic episode. Lizbet also thinks, but is not sure whether her mother has had bouts of depression throughout her life that have been mild but for which she was taking medication. She says that prior to this first clear manic episode in March 2021, her mother was experiencing several stressors related to family relationships with her other children. Amaris also wonders if her brother is bipolar as he seems to have a clear manic episodes. Diagnostics Vital Signs (24Hr): Vital Signs - 24 hr 07/18/21 19:07 07/19/21 06:00 Pulse Rate 80 77 Respiratory Rate 16 Blood Pressure 156/60 H 151/80 H BMI result Body Mass Index 39.5 Labs Results: 07/15/21 15:12 07/20/21 09:07 Labs: Laboratory Results - last 48 hr 07/18/21 08:45 Sodium 136 Potassium 4.0 Chloride 99 Carbon Dioxide 25 Anion Gap 16 BUN 31 H Creatinine 0.99 Estim Creat Clear Calc 68.7 Estimated GFR 56 Medications Medications Current Medications Acetaminophen (Acetaminophen 325 Mg Tablet) 650 mg PO Q6H PRN PRN Reason: Headache/Pain Mild Scale (1-3) Al Hydroxide/Mg Hydroxide (Magnesium Hydrox/Alum Hydrox 30 Ml Oral.Susp) 30 ml PO Q6H PRN PRN Reason: Heartburn/Nausea Apixaban (Apixaban 5 Mg Tablet) 5 mg PO BID [facility] Last Admin: 07/19/21 08:39 Dose: 5 mg Documented by: Cefuroxime Axetil (Cefuroxime Axetil 250 Mg Tablet) 250 mg PO Q12H [facility] Last Admin: 07/19/21 08:39 Dose: 250 mg Documented by: Flecainide Acetate (Flecainide Acetate 50 Mg Tablet) 100 mg PO BID [facility] Last Admin: 07/19/21 08:39 Dose: 100 mg Documented by: Lorazepam (Lorazepam 0.5 Mg Tablet) 0.5 mg PO Q6H [facility] Last Admin: 07/19/21 08:39 Dose: 0.5 mg Documented by: Lorazepam (Lorazepam 1 Mg Tablet) 1 mg PO TID [facility] Magnesium Hydroxide (Milk Of Magnesia 30 Ml Oral.Susp) 30 ml PO DAILY PRN PRN Reason: Constipation Metoprolol Succinate (Metoprolol Succinate Er 25 Mg Tab.Er.24h) 25 mg PO DAILY [facility]; Protocol Last Admin: 07/19/21 08:39 Dose: 25 mg Documented by: Olanzapine (Olanzapine Odt 10 Mg Tab.Rapdis) 10 mg TRANSLINGU BEDTIME [facility] Last Admin: 07/18/21 20:27 Dose: 10 mg Documented by: Pharmacy Consult (Consult Rx Perform Med Rec) 1 each MISCELLANE ONCE PRN PRN Reason: Consult order Sitagliptin Phosphate (Sitagliptin Phosphate 100 Mg Tablet) 100 mg PO DAILY [facility] Last Admin: 07/19/21 08:39 Dose: 100 mg Documented by: Trazodone HCl (Trazodone Hcl 50 Mg Tablet) 50 mg PO BEDTIME PRN PRN Reason: Insomnia Vitamin D (Cholecalciferol (Vitamin D3) 10 Mcg Tablet) 10 mcg PO DAILY [facility] Last Admin: 07/19/21 08:40 Dose: 10 mcg Documented by: Allergies Allergies Allergy/AdvReac Type Severity Reaction Status Date / Time bee pollen [bee stings] Allergy Swelling Verified 05/10/21 21:25 codeine Allergy Anaphylaxis Verified 05/10/21 21:25 Assessment & Plan Assessment & Plan (1) Bipolar 1 disorder with moderate jarrett: Status: Acute Code(s): F31.12 - Bipolar disorder, current episode manic without psychotic features, moderate Plan Patient is a 70-year-old female with history of hypertension, type 2 diabetes, AFib and with limited psychiatric history, 1st having psychotic symptoms this past February 2021 and then again admitted April on , who presents for 2 weeks of worsening psychotic symptoms in the face of going off her Zyprexa and getting a UTI. -patient's current presentation is very similar to her last admission during which time Zyprexa resolved symptoms; patient is currently willing taking Zyprexa. She is also taking antibiotics for UTI which is very likely contributory -currently patient is moderately manic with psychotic symptoms; will continue treatment Formulation: Patient has little to no clinical psychiatric history prior to manic episode this past February/March 2021 at which time she was successfully treated with Zyprexa. Reportedly patient did well while on Zyprexa however stopped taking it about 2 weeks ago and symptoms returned; patient also had a UTI which is very likely contributory. Collateral obtained from patient's daughter who described what sounds like subclinical hypomanic episodes throughout patient's life that were mild enough not to cause any concern and did not interrupt patient's function, but would help to explain why patient is having her current episode. Possible hx of some depression and other family member with bipolar. Plan: CV Q 15 minute checks Continue Zyprexa 10 mg q.h.s.; consider changing to Zydis to ensure adherence. Continue Ceftin 250mg BID for UTI LEONARD resolved and Bun/Cr returned to within normal limits; case discussed with Dr. Bourgeois who recommends continuing to hold antihypertensives, restarting metoprolol tomorrow morning and then rechecking kidney function; if remains normal limits, restarted lisinopril and chlorthalidone continue home meds: HOLD chlorthalidone 25 mg tablet daily; will monitor BP HOLDlisinopril 40 mg tablet daily; will monitor BP Restart metoprolol succinate XR 50 mg daily sitagliptin 100 mg tablet (Januvia) daily flecainide 100 mg tablet b.i.d. apixaban 5 mg tablet (Eliquis) B.i.d. cholecalciferol daily For day to day... Hospital course: 07/18 patient remains religiously preoccupied with some disorganized behaviors, internally preoccupied and with auditory hallucinations. She is also able to be goal oriented in discussions. She says she will continue taking Zyprexa and says she will modify her behaviors so they are not startling to others. pt on 12 b. will likely switch to Zydis to ensure adherence 07/19 no change; collateral obtained indicates likely history of hypomanic episodes that were subclinical Collateral Obtained: on 07/19 Patient's daughter Amaris visited and told writer technical publications that upon reflection she thinks her mother has had hypomanic episodes throughout her life, about 4 per year. She says her mother has several hobbies and is actually quite talented at writing children's books, making quilts, painting and making [place] or[place]. However for about 1 to 2 weeks every several months, instead of making her usual 1 quilt, she will make 10 of them, be extra excited about it and describing the details of it to others, unaware that it is excessive and that she is repeating herself. Same with books or paintings were she will be overly productive. Daughter says that this has not interrupt her function in other parts of her life and that her pieces are still excellently done and it has never raised any concerns other than in hindsight and in context of this current manic episode. Lizbet also thinks, but is not sure whether her mother has had bouts of depression throughout her life that have been mild but for which she was taking medication. She says that prior to this first clear manic episode in March 2021, her mother was experiencing several stressors related to family relationships with her other children. Amaris also wonders if her brother is bipolar as he seems to have a clear manic episodes. I spent minutes with the patient and/or on the patient floor today, greater than?50% of which was spent counseling/coordinating care. Patient educated on: diagnosis Informed Consent: further education needed Reason for contiued inpatient stay Substantial Risk for: inability to function and rapid decompensation
[2021-07-19] MEDS: LORazepam 1 MG TABLET PO ×2 (14:04→20:47)
[2021-07-19] MEDS: OLANZapine ODT 10 MG TAB.RAPDIS TRANSLINGU (20:47)
[2021-07-19 21:14] VITALS: BP 126/55; PULSE 73; RESP 16; TEMP 36.6; O2SAT 96
[2021-07-20 06:00] VITALS: BP 162/78; PULSE 77; RESP 16; TEMP 36.4; O2SAT 94
[2021-07-20 09:29] LABS: Blood Urea Nitrogen 19 mg/dL (9-16); Creatinine Clr Calc Pharmacy 81.9; Estimated Glomerular Filt Rate > 60
[2021-07-20] MEDS: Flecainide Acetate 50 MG TABLET 100 MG PO ×2 (09:36→20:25)
[2021-07-20] MEDS: Apixaban 5 MG TABLET PO ×2 (09:36→20:25)
[2021-07-20] MEDS: LORazepam 1 MG TABLET PO ×3 (09:36→20:25)
[2021-07-20] MEDS: Metoprolol Succinate ER 25 MG TAB.ER.24H PO (09:36)
[2021-07-20] MEDS: Cholecalciferol (Vitamin D3) 10 MCG TABLET PO (09:37)
[2021-07-20] MEDS: SITagliptin Phosphate 100 MG TABLET PO (09:37)
--- NOTE | 2021-07-20 12:16 | HO.PSYCHPN ---
Subjective Subjective Date of Service: 07/20/21 Reason For Visit: Psychosis Interim History: Patient remains religiously preoccupied and intermittently staring off into space during which time she does not talk or respond. No outburst however Patient is eating and drinking and finished her breakfast and half for lunch, though it does take considerable time for her to complete her meals since she gets internally preoccupied. Mental Status Exam Mental Status Exam Narrative: Pt is alert and oriented; behavior is intermittently cooperative, friendly, religiously pre-occupied; patient is not in distress; dressed in casual attire with unkempt hair but adequate hygiene; mood is described as good and expansive to blunted; eye contact appropriate when talking; other times, stares at the ceiling; Speech is normal rate, volume and prosody and not pressured; psychomotor agitation intermittently present; thought process is goal directed; Thought content perseverative on jewish themes; can be pertinent to relevant topics; some grandiosity; denies any SI/HI. AH and patient is internally preoccupied.? Patients insight and judgment are impaired. Diagnostics Vital Signs (24Hr): Vital Signs - 24 hr 07/19/21 21:14 07/20/21 06:00 Temperature 97.8 F 97.6 F Pulse Rate 73 77 Respiratory Rate 16 16 Blood Pressure 126/55 L 162/78 H Pulse Oximetry 96 94 BMI result Body Mass Index 39.5 Labs Results: 07/15/21 15:12 07/20/21 09:07 Labs: Laboratory Results - last 48 hr 07/20/21 09:07 BUN 19 H Creatinine 0.83 Estim Creat Clear Calc 81.9 Estimated GFR > 60 Medications Medications Current Medications Acetaminophen (Acetaminophen 325 Mg Tablet) 650 mg PO Q6H PRN PRN Reason: Headache/Pain Mild Scale (1-3) Al Hydroxide/Mg Hydroxide (Magnesium Hydrox/Alum Hydrox 30 Ml Oral.Susp) 30 ml PO Q6H PRN PRN Reason: Heartburn/Nausea Apixaban (Apixaban 5 Mg Tablet) 5 mg PO BID [facility] Last Admin: 07/20/21 09:36 Dose: 5 mg Documented by: Cefuroxime Axetil (Cefuroxime Axetil 250 Mg Tablet) 250 mg PO Q12H [facility] Last Admin: 07/20/21 09:36 Dose: 250 mg Documented by: Flecainide Acetate (Flecainide Acetate 50 Mg Tablet) 100 mg PO BID [facility] Last Admin: 07/20/21 09:36 Dose: 100 mg Documented by: Lisinopril (Lisinopril 20 Mg Tablet) 20 mg PO ONCE ONE; Protocol Stop: 07/20/21 12:15 Lisinopril (Lisinopril 40 Mg Tablet) 40 mg PO DAILY [facility]; Protocol Lorazepam (Lorazepam 1 Mg Tablet) 1 mg PO TID [facility] Last Admin: 07/20/21 09:36 Dose: 1 mg Documented by: Magnesium Hydroxide (Milk Of Magnesia 30 Ml Oral.Susp) 30 ml PO DAILY PRN PRN Reason: Constipation Metoprolol Succinate (Metoprolol Succinate Er 25 Mg Tab.Er.24h) 25 mg PO DAILY [facility]; Protocol Last Admin: 07/20/21 09:36 Dose: 25 mg Documented by: Olanzapine (Olanzapine Odt 10 Mg Tab.Rapdis) 15 mg TRANSLINGU BEDTIME [facility] Pharmacy Consult (Consult Rx Perform Med Rec) 1 each MISCELLANE ONCE PRN PRN Reason: Consult order Sitagliptin Phosphate (Sitagliptin Phosphate 100 Mg Tablet) 100 mg PO DAILY [facility] Last Admin: 07/20/21 09:37 Dose: 100 mg Documented by: Trazodone HCl (Trazodone Hcl 50 Mg Tablet) 50 mg PO BEDTIME PRN PRN Reason: Insomnia Vitamin D (Cholecalciferol (Vitamin D3) 10 Mcg Tablet) 10 mcg PO DAILY [facility] Last Admin: 07/20/21 09:37 Dose: 10 mcg Documented by: Allergies Allergies Allergy/AdvReac Type Severity Reaction Status Date / Time bee pollen [bee stings] Allergy Swelling Verified 05/10/21 21:25 codeine Allergy Anaphylaxis Verified 05/10/21 21:25 Assessment & Plan Assessment & Plan (1) Bipolar 1 disorder with moderate jarrett: Status: Acute Code(s): F31.12 - Bipolar disorder, current episode manic without psychotic features, moderate Plan Patient is a 70-year-old female with history of hypertension, type 2 diabetes, AFib and with limited psychiatric history, 1st having psychotic symptoms this past February 2021 and then again admitted April on , who presents for 2 weeks of worsening psychotic symptoms in the face of going off her Zyprexa and getting a UTI. -patient's current presentation is very similar to her last admission during which time Zyprexa resolved symptoms; patient is currently willing taking Zyprexa. She is also taking antibiotics for UTI which is very likely contributory -currently patient is moderately manic with psychotic symptoms; will continue treatment Formulation: Patient has little to no clinical psychiatric history prior to manic episode this past March 2021 at which time she was successfully treated with Zyprexa. Reportedly patient did well while on Zyprexa however stopped taking it about 2 weeks ago and symptoms returned; patient also had a UTI which is very likely contributory. Collateral obtained from patient's daughter who described what sounds like subclinical hypomanic episodes throughout patient's life that were mild enough not to cause any concern and did not interrupt patient's function, but would help to explain why patient is having her current episode. Possible hx of some depression and other family member with bipolar. Plan: CV Q 15 minute checks 1. Bipolar Disorder (provisional): START Ativan 1mg TID for catatonic-like symptom (pt is not currently catatonic) INCREASE to Continue Zydis 15 mg q.h.s.; for psychotic symptoms UTI: being treated: Continue Ceftin 250mg BID for UTI LEONARD: resolved -recheck Bun/cr Hypertension: RESTART chlorthalidone 25 mg tablet daily; BP elevevated; since recent LEONARD will hold off on lisinopril for now and see how blood pressures go and bun/cr; Discussed w Dr. Samson HOLD Lisinopril 40 mg tablet daily; monitor BP Continue metoprolol succinate XR 50 mg daily LEONARD resolved; Bun/Cr returned to WNL; case discussed with Dr. Bourgeois Diabetes: sitagliptin 100 mg tablet (Januvia) daily Afib: flecainide 100 mg tablet b.i.d. apixaban 5 mg tablet (Eliquis) B.i.d. cholecalciferol daily For day to day events and decision making... Hospital course: 07/18 patient remains religiously preoccupied with some disorganized behaviors, internally preoccupied and with auditory hallucinations. She is also able to be goal oriented in discussions. She says she will continue taking Zyprexa and says she will modify her behaviors so they are not startling to others. pt on 12 b. will likely switch to Zydis to ensure adherence 07/19 no change; collateral obtained indicates likely history of hypomanic episodes that were subclinical 6/3 patient remains in religiously preoccupied and with auditory hallucinations. She also intermittently stares off blankly during which time she does not talk or respond. These are patient is only catatonic like symptoms. Benzol Operator increased Zyprexa as patient remains with AH and is disorganization. However, also decided to add Ativan 1 mg t.i.d. to see if this can be helpful given Catatonic-like symptoms. At this point patient does not have catatonia and her only catatonic like symptom is her momentary periods of disassociation were she is internally preoccupied and staring into space. Otherwise patient moves around, talks, eats, drinks, toilets herself and showers without problem. Collateral Obtained: on 07/19 Patient's daughter Amaris visited and told global technical writer that upon reflection she thinks her mother has had hypomanic episodes throughout her life, about 4 per year. She says her mother has several hobbies and is actually quite talented at writing children's books, making quilts, painting and making [place] ornamants. However for about 1 to 2 weeks every several months, instead of making her usual 1 quilt, she will make 10 of them, be extra excited about it and describing the details of it to others, unaware that it is excessive and that she is repeating herself. Same with books or paintings were she will be overly productive. Daughter says that this has not interrupt her function in other parts of her life and that her pieces are still excellently done and it has never raised any concerns other than in hindsight and in context of this current manic episode. Lizbet also thinks, but is not sure whether her mother has had bouts of depression throughout her life that have been mild but for which she was taking medication. She says that prior to this first clear manic episode in March 2021, her mother was experiencing several stressors related to family relationships with her other children. Amaris also wonders if her brother is bipolar as he seems to have a clear manic episodes. I spent minutes with the patient and/or on the patient floor today, greater than?50% of which was spent counseling/coordinating care. Patient educated on: diagnosis and medication risk/benefits Informed Consent: understands and further education needed Reason for contiued inpatient stay Substantial Risk for: inability to function and rapid decompensation
[2021-07-20] MEDS: hydroCHLOROthiazide 25 MG TABLET PO (15:14)
[2021-07-20] MEDS: OLANZapine ODT 10 MG TAB.RAPDIS 15 MG TRANSLINGU (20:25)
[2021-07-21 09:45] VITALS: BP 147/69; PULSE 69; RESP 14; TEMP 36.9; O2SAT 94
[2021-07-21] MEDS: Flecainide Acetate 50 MG TABLET 100 MG PO ×2 (09:55→20:31)
[2021-07-21] MEDS: Cholecalciferol (Vitamin D3) 10 MCG TABLET PO (09:56)
[2021-07-21] MEDS: Apixaban 5 MG TABLET PO ×2 (09:56→20:32)
[2021-07-21] MEDS: Metoprolol Succinate ER 25 MG TAB.ER.24H PO (09:56)
[2021-07-21] MEDS: SITagliptin Phosphate 100 MG TABLET PO (09:56)
[2021-07-21] MEDS: LORazepam 1 MG TABLET PO ×3 (09:56→19:51)
[2021-07-21] MEDS: hydroCHLOROthiazide 25 MG TABLET PO (09:56)
--- NOTE | 2021-07-21 16:46 | HO.PSYCHPN ---
Subjective Subjective Date of Service: 07/21/21 Reason For Visit: Psychosis Interim History: Continues with jainism pre-occupation. Spends much time in prayer and in attempting to assist room-mate who has agitation, psychosis. Visited by family. Tolerating five minute checks, accepting and tolerating medication increase Medication Compliance: Yes Side effects from medications: No Attending Groups: No Review of Systems Acute medical concerns: No Medical Review of Systems: unchanged Mental Status Exam Mental Status Exam Patient Appearance: Appropriate Patient Orientation: Person Level of Consciousness: Alert Patient Behavior: Wandering, Fatigued, Distractible and Good Eye Contact Mood Description: Flat Affect Description: Flat Patient Cognition Impaired: Yes Ability to Follow Directions: Fair Speech Pattern: Perseverating, Spontaneous Speech, Soft-Spoken, Delayed and Long Pauses Memory Description: Remote Impaired Hallucinations: Auditory Perceptual Disturbances: Depersonalization and Derealization Thought Process: Distracted, Slowed Thinking and Confusion Thought Content: positive for Circumstantial, positive for Perseveration, positive for Preoccupation and positive for Thought Blocking Judgement: Poor Diagnostics Vital Signs (24Hr): Vital Signs - 24 hr 07/21/21 09:45 Temperature 98.4 F Pulse Rate 69 Respiratory Rate 14 Blood Pressure 147/69 H Pulse Oximetry 94 BMI result Body Mass Index 39.5 Labs Results: 07/15/21 15:12 07/20/21 09:07 Labs: Laboratory Results - last 48 hr 07/20/21 09:07 BUN 19 H Creatinine 0.83 Estim Creat Clear Calc 81.9 Estimated GFR > 60 Medications Medications Current Medications Acetaminophen (Acetaminophen 325 Mg Tablet) 650 mg PO Q6H PRN PRN Reason: Headache/Pain Mild Scale (1-3) Al Hydroxide/Mg Hydroxide (Magnesium Hydrox/Alum Hydrox 30 Ml Oral.Susp) 30 ml PO Q6H PRN PRN Reason: Heartburn/Nausea Apixaban (Apixaban 5 Mg Tablet) 5 mg PO BID [facility] Last Admin: 07/21/21 09:56 Dose: 5 mg Documented by: Cefuroxime Axetil (Cefuroxime Axetil 250 Mg Tablet) 250 mg PO Q12H [facility] Stop: 07/24/21 23:50 Last Admin: 07/21/21 09:56 Dose: 250 mg Documented by: Flecainide Acetate (Flecainide Acetate 50 Mg Tablet) 100 mg PO BID [facility] Last Admin: 07/21/21 09:55 Dose: 100 mg Documented by: Hydrochlorothiazide (Hydrochlorothiazide 25 Mg Tablet) 25 mg PO DAILY [facility] Last Admin: 07/21/21 09:56 Dose: 25 mg Documented by: Lorazepam (Lorazepam 1 Mg Tablet) 1 mg PO TID [facility] Last Admin: 07/21/21 14:22 Dose: 1 mg Documented by: Magnesium Hydroxide (Milk Of Magnesia 30 Ml Oral.Susp) 30 ml PO DAILY PRN PRN Reason: Constipation Metoprolol Succinate (Metoprolol Succinate Er 25 Mg Tab.Er.24h) 25 mg PO DAILY [facility]; Protocol Last Admin: 07/21/21 09:56 Dose: 25 mg Documented by: Olanzapine (Olanzapine Odt 10 Mg Tab.Rapdis) 15 mg TRANSLINGU BEDTIME [facility] Last Admin: 07/20/21 20:25 Dose: 15 mg Documented by: Pharmacy Consult (Consult Rx Perform Med Rec) 1 each MISCELLANE ONCE PRN PRN Reason: Consult order Sitagliptin Phosphate (Sitagliptin Phosphate 100 Mg Tablet) 100 mg PO DAILY [facility] Last Admin: 07/21/21 09:56 Dose: 100 mg Documented by: Trazodone HCl (Trazodone Hcl 50 Mg Tablet) 50 mg PO BEDTIME PRN PRN Reason: Insomnia Vitamin D (Cholecalciferol (Vitamin D3) 10 Mcg Tablet) 10 mcg PO DAILY [facility] Last Admin: 07/21/21 09:56 Dose: 10 mcg Documented by: Allergies Allergies Allergy/AdvReac Type Severity Reaction Status Date / Time bee pollen [bee stings] Allergy Swelling Verified 05/10/21 21:25 codeine Allergy Anaphylaxis Verified 05/10/21 21:25 Assessment & Plan Assessment & Plan (1) Bipolar 1 disorder with moderate jarrett: Status: Acute Code(s): F31.12 - Bipolar disorder, current episode manic without psychotic features, moderate Plan Patient is a 70-year-old female with history of hypertension, type 2 diabetes, AFib and with limited psychiatric history, 1st having psychotic symptoms this past February 2021 and then again admitted April on , who presents for 2 weeks of worsening psychotic symptoms in the face of going off her Zyprexa and getting a UTI. -patient's current presentation is very similar to her last admission during which time Zyprexa resolved symptoms; patient is currently willing taking Zyprexa. She is also taking antibiotics for UTI which is very likely contributory -currently patient is moderately manic with psychotic symptoms; will continue treatment Formulation: Patient has little to no clinical psychiatric history prior to manic episode this past March 2021 at which time she was successfully treated with Zyprexa. Reportedly patient did well while on Zyprexa however stopped taking it about 2 weeks ago and symptoms returned; patient also had a UTI which is very likely contributory. Collateral obtained from patient's daughter who described what sounds like subclinical hypomanic episodes throughout patient's life that were mild enough not to cause any concern and did not interrupt patient's function, but would help to explain why patient is having her current episode. Possible hx of some depression and other family member with bipolar. Plan: CV Q 15 minute checks 1. Bipolar Disorder (provisional): START Ativan 1mg TID for catatonic-like symptom (pt is not currently catatonic) INCREASE to Continue Zydis 15 mg q.h.s.; for psychotic symptoms UTI: being treated: Continue Ceftin 250mg BID for UTI LEONARD: resolved -recheck Bun/cr Hypertension: RESTART chlorthalidone 25 mg tablet daily; BP elevevated; since recent LEONARD will hold off on lisinopril for now and see how blood pressures go and bun/cr; Discussed w Dr. Samson HOLD Lisinopril 40 mg tablet daily; monitor BP Continue metoprolol succinate XR 50 mg daily LEONARD resolved; Bun/Cr returned to WNL; case discussed with Dr. Bourgeois Diabetes: sitagliptin 100 mg tablet (Januvia) daily Afib: flecainide 100 mg tablet b.i.d. apixaban 5 mg tablet (Eliquis) B.i.d. cholecalciferol daily For day to day events and decision making... Hospital course: 07/18 patient remains religiously preoccupied with some disorganized behaviors, internally preoccupied and with auditory hallucinations. She is also able to be goal oriented in discussions. She says she will continue taking Zyprexa and says she will modify her behaviors so they are not startling to others. pt on 12 b. will likely switch to Zydis to ensure adherence 07/19 no change; collateral obtained indicates likely history of hypomanic episodes that were subclinical 07/20 patient remains in religiously preoccupied and with auditory hallucinations. She also intermittently stares off blankly during which time she does not talk or respond. These are patient is only catatonic like symptoms. Plug Overwrap Machine Tender increased Zyprexa as patient remains with AH and is disorganization. However, also decided to add Ativan 1 mg t.i.d. to see if this can be helpful given Catatonic-like symptoms. At this point patient does not have catatonia and her only catatonic like symptom is her momentary periods of disassociation were she is internally preoccupied and staring into space. Otherwise patient moves around, talks, eats, drinks, toilets herself and showers without problem. 07/21 Coverage- continue observation support and medication regime. Collateral Obtained: on 07/19 Patient's daughter Amaris visited and told group underwriter that upon reflection she thinks her mother has had hypomanic episodes throughout her life, about 4 per year. She says her mother has several hobbies and is actually quite talented at writing children's books, making quilts, painting and making [place] ornamants. However for about 1 to 2 weeks every several months, instead of making her usual 1 quilt, she will make 10 of them, be extra excited about it and describing the details of it to others, unaware that it is excessive and that she is repeating herself. Same with books or paintings were she will be overly productive. Daughter says that this has not interrupt her function in other parts of her life and that her pieces are still excellently done and it has never raised any concerns other than in hindsight and in context of this current manic episode. Lizbet also thinks, but is not sure whether her mother has had bouts of depression throughout her life that have been mild but for which she was taking medication. She says that prior to this first clear manic episode in March 2021, her mother was experiencing several stressors related to family relationships with her other children. Amaris also wonders if her brother is bipolar as he seems to have a clear manic episodes. I spent minutes with the patient and/or on the patient floor today, greater than?50% of which was spent counseling/coordinating care. Patient educated on: other Informed Consent: does not understand Reason for contiued inpatient stay Substantial Risk for: inability to function and rapid decompensation
[2021-07-21 19:30] VITALS: BP 146/73; PULSE 82; TEMP 36.2; O2SAT 98
[2021-07-21] MEDS: OLANZapine ODT 10 MG TAB.RAPDIS 15 MG TRANSLINGU (20:33)
[2021-07-22 06:00] VITALS: BP 127/79; PULSE 78; RESP 14; TEMP 35.8; O2SAT 96
[2021-07-22] MEDS: Metoprolol Succinate ER 25 MG TAB.ER.24H PO (08:26)
[2021-07-22] MEDS: Apixaban 5 MG TABLET PO ×2 (08:26→21:46)
[2021-07-22] MEDS: hydroCHLOROthiazide 25 MG TABLET PO (08:26)
[2021-07-22] MEDS: SITagliptin Phosphate 100 MG TABLET PO (08:26)
[2021-07-22] MEDS: Flecainide Acetate 50 MG TABLET 100 MG PO ×2 (08:26→21:46)
[2021-07-22] MEDS: LORazepam 1 MG TABLET PO ×3 (08:26→21:47)
[2021-07-22] MEDS: Cholecalciferol (Vitamin D3) 10 MCG TABLET PO (08:26)
--- NOTE | 2021-07-22 10:49 | P.PNPSI_ITS ---
Subjective Subjective Date of Service: 07/22/21 Reason For Visit: Psychosis Interim History: Pt with periods of staring , ?dissociative periods, and no responses to others. Approached pt, initiated discussion, no response for ~4 minutes, however, then she established eye contact, responded to tw comments, explaining that she was deep in prayer and needed to complete her task. She was alert, oriented x 2, responded to questions. She indicated awareness of environment when she was not responding and reports she is feeling improved. She continued with a gnosticist focus and then excused herself to return to prayer. Medication Compliance: Yes Side effects from medications: No Attending Groups: No Review of Systems Acute medical concerns: No Medical Review of Systems: unchanged Mental Status Exam Mental Status Exam Patient Appearance: Appropriate Patient Orientation: Person Level of Consciousness: Alert Patient Behavior: Wandering, Fatigued, Distractible and Good Eye Contact Mood Description: Flat Affect Description: Flat Patient Cognition Impaired: Yes Ability to Follow Directions: Fair Speech Pattern: Perseverating, Spontaneous Speech, Soft-Spoken, Delayed and Long Pauses Memory Description: Remote Impaired Hallucinations: Auditory Perceptual Disturbances: Depersonalization and Derealization Thought Process: Distracted, Slowed Thinking and Confusion Thought Content: positive for Circumstantial, positive for Perseveration, p ositive for Preoccupation and positive for Thought Blocking Judgement: Poor Diagnostics Vital Signs (24Hr): Vital Signs - 24 hr 07/21/21 19:30 07/22/21 06:00 Temperature 97.1 F 96.4 F L Pulse Rate 82 78 Respiratory Rate 14 Blood Pressure 146/73 H 127/79 Pulse Oximetry 98 96 BMI result Body Mass Index 39.5 Labs Results: 07/15/21 15:12 07/20/21 09:07 Medications Medications Current Medications Acetaminophen (Acetaminophen 325 Mg Tablet) 650 mg PO Q6H PRN PRN Reason: Headache/Pain Mild Scale (1-3) Al Hydroxide/Mg Hydroxide (Magnesium Hydrox/Alum Hydrox 30 Ml Oral.Susp) 30 ml PO Q6H PRN PRN Reason: Heartburn/Nausea Apixaban (Apixaban 5 Mg Tablet) 5 mg PO BID [facility] Last Admin: 07/22/21 08:26 Dose: 5 mg Documented by: Cefuroxime Axetil (Cefuroxime Axetil 250 Mg Tablet) 250 mg PO Q12H [facility] Stop: 07/24/21 23:50 Last Admin: 07/22/21 08:26 Dose: 250 mg Documented by: Flecainide Acetate (Flecainide Acetate 50 Mg Tablet) 100 mg PO BID [facility] Last Admin: 07/22/21 08:26 Dose: 100 mg Documented by: Hydrochlorothiazide (Hydrochlorothiazide 25 Mg Tablet) 25 mg PO DAILY [facility] Last Admin: 07/22/21 08:26 Dose: 25 mg Documented by: Lorazepam (Lorazepam 1 Mg Tablet) 1 mg PO TID [facility] Last Admin: 07/22/21 08:26 Dose: 1 mg Documented by: Magnesium Hydroxide (Milk Of Magnesia 30 Ml Oral.Susp) 30 ml PO DAILY PRN PRN Reason: Constipation Metoprolol Succinate (Metoprolol Succinate Er 25 Mg Tab.Er.24h) 25 mg PO DAILY [facility]; Protocol Last Admin: 07/22/21 08:26 Dose: 25 mg Documented by: Olanzapine (Olanzapine Odt 10 Mg Tab.Rapdis) 15 mg TRANSLINGU BEDTIME [facility] Last Admin: 07/21/21 20:33 Dose: 15 mg Documented by: Pharmacy Consult (Consult Rx Perform Med Rec) 1 each MISCELLANE ONCE PRN PRN Reason: Consult order Sitagliptin Phosphate (Sitagliptin Phosphate 100 Mg Tablet) 100 mg PO DAILY [facility] Last Admin: 07/22/21 08:26 Dose: 100 mg Documented by: Trazodone HCl (Trazodone Hcl 50 Mg Tablet) 50 mg PO BEDTIME PRN PRN Reason: Insomnia Vitamin D (Cholecalciferol (Vitamin D3) 10 Mcg Tablet) 10 mcg PO DAILY [facility] Last Admin: 07/22/21 08:26 Dose: 10 mcg Documented by: Allergies Allergies Allergy/AdvReac Type Severity Reaction Status Date / Time bee pollen [bee stings] Allergy Swelling Verified 05/10/21 21:25 codeine Allergy Anaphylaxis Verified 05/10/21 21:25 Assessment & Plan Assessment & Plan (1) Bipolar 1 disorder with moderate jarrett: Status: Acute Code(s): F31.12 - Bipolar disorder, current episode manic without psychotic features, moderate Plan Patient is a 70-year-old female with history of hypertension, type 2 diabetes, AFib and with limited psychiatric history, 1st having psychotic symptoms this past February 2021 and then again admitted April, who presents for 2 weeks of worsening psychotic symptoms in the face of going off her Zyprexa and getting a UTI. -patient's current presentation is very similar to her last admission during which time Zyprexa resolved symptoms; patient is currently willing taking Zyprexa. She is also taking antibiotics for UTI which is very likely contributory -currently patient is moderately manic with psychotic symptoms; will continue treatment Formulation: Patient has little to no clinical psychiatric history prior to manic episode this past March 2021 at which time she was successfully treated with Zyprexa. Reportedly patient did well while on Zyprexa however stopped taking it about 2 weeks ago and symptoms returned; patient also had a UTI which is very likely contributory. Collateral obtained from patient's daughter who described what sounds like subclinical hypomanic episodes throughout patient's life that were mild enough not to cause any concern and did not interrupt patient's function, but would help to explain why patient is having her current episode. Possible hx of some depression and other family member with bipolar. Plan: CV Q 15 minute checks 1. Bipolar Disorder (provisional): START Ativan 1mg TID for catatonic-like symptom (pt is not currently catatonic) INCREASE to Continue Zydis 15 mg q.h.s.; for psychotic symptoms UTI: being treated: Continue Ceftin 250mg BID for UTI LEONARD: resolved -recheck Bun/cr Hypertension: RESTART chlorthalidone 25 mg tablet daily; BP elevevated; since recent LEONARD will hold off on lisinopril for now and see how blood pressures go and bun/cr; Discussed w Dr. Samson HOLD Lisinopril 40 mg tablet daily; monitor BP Continue metoprolol succinate XR 50 mg daily LEONARD resolved; Bun/Cr returned to WNL; case discussed with Dr. Bourgeois Diabetes: sitagliptin 100 mg tablet (Januvia) daily Afib: flecainide 100 mg tablet b.i.d. apixaban 5 mg tablet (Eliquis) B.i.d. cholecalciferol daily For day to day events and decision making... Hospital course: 07/18 patient remains religiously preoccupied with some disorganized behaviors, internally preoccupied and with auditory hallucinations. She is also able to be goal oriented in discussions. She says she will continue taking Zyprexa and says she will modify her behaviors so they are not startling to others. pt on 12 b. will likely switch to Zydis to ensure adherence 07/19 no change; collateral obtained indicates likely history of hypomanic ep isodes that were subclinical 07/20 patient remains in religiously preoccupied and with auditory hallucinations. She also intermittently stares off blankly during which time she does not talk or respond. These are patient is only catatonic like symptoms. [employer] increased Zyprexa as patient remains with AH and is disorganization. However, also decided to add Ativan 1 mg t.i.d. to see if this can be helpful given Catatonic-like symptoms. At this point patient does not have catatonia and her only catatonic like symptom is her momentary periods of disassociation were she is internally preoccupied and staring into space. Otherwise patient moves around, talks, eats, drinks, toilets herself and showers without problem. 07/22/21- Continue plan of care Collateral Obtained: on 07/19 Patient's daughter Amaris visited and told communications writer that upon reflection she thinks her mother has had hypomanic episodes throughout her life, about 4 per year. She says her mother has several hobbies and is actually quite talented at writing children's books, making quilts, painting and making [place] ornamants. However for about 1 to 2 weeks every several months, instead of making her usual 1 quilt, she will make 10 of them, be extra excited about it and describing the details of it to others, unaware that it is excessive and that she is repeating herself. Same with books or paintings were she will be overly productive. Daughter says that this has not interrupt her function in other parts of her life and that her pieces are still excellently done and it has never raised any concerns other than in hindsight and in context of this current manic episode. Lizbet also thinks, but is not sure whether her mother has had bouts of depression throughout her life that have been mild but for which she was taking medication. She says that prior to this first clear manic episode in March 2021, her mother was experiencing several stressors related to family relationships with her other children. Amaris also wonders if her brother is bipolar as he seems to have a clear manic episodes. I spent minutes with the patient and/or on the patient floor today, greater than?50% of which was spent counseling/coordinating care. Patient educated on: other Informed Consent: further education needed Reason for contiued inpatient stay Substantial Risk for: inability to function and rapid decompensation
[2021-07-22 21:35] VITALS: BP 174/72; PULSE 74; TEMP 36; O2SAT 96
[2021-07-22] MEDS: OLANZapine ODT 10 MG TAB.RAPDIS 15 MG TRANSLINGU (21:47)
[2021-07-23 06:00] VITALS: BP 130/78; PULSE 88; RESP 16; TEMP 36.3; O2SAT 95
[2021-07-23] MEDS: Cholecalciferol (Vitamin D3) 10 MCG TABLET PO (08:50)
[2021-07-23] MEDS: Metoprolol Succinate ER 25 MG TAB.ER.24H PO (08:51)
[2021-07-23] MEDS: Apixaban 5 MG TABLET PO ×2 (08:51→20:52)
[2021-07-23] MEDS: hydroCHLOROthiazide 25 MG TABLET PO (08:51)
[2021-07-23] MEDS: LORazepam 1 MG TABLET PO ×3 (08:51→20:52)
[2021-07-23] MEDS: SITagliptin Phosphate 100 MG TABLET PO (08:51)
[2021-07-23] MEDS: Flecainide Acetate 50 MG TABLET 100 MG PO ×2 (08:51→20:52)
--- NOTE | 2021-07-23 10:34 | P.PNPSI_ITS ---
Subjective Subjective Date of Service: 07/23/21 Reason For Visit: Psychosis Interim History: Patient admitted to inspector automatic typewriter that she purposely tried to full the nurse and not take her medication. She chuckled and said she wanted to see if she could get away with it. Patient and inspector automatic typewriter discussed medication which patient had said she thought was helpful for the voices. Patient then told inspector automatic typewriter that she thinks the medication is working and that all the voices have pretty much resolved. A few seconds later she said that she is lying again, apologized for and said she just wanted inspector automatic typewriter to think she was all better. She says the voices are plentiful however they are of heavenly angels and not necessarily unwanted. Patient then switched trying to get inspector automatic typewriter to say a specific prayer and remained on this tack; she said the reason she came to the hospital was to try and save souls. As inspector automatic typewriter tried to explain hesitancy, patient became quiet and stop talking, staring off in the distance. [address] tried to explain that while patient's spirituality and her beliefs are not necessarily a problem, the reason she came to the hospital was because she was not eating and drinking and had gotten disorganized. At that point she said she does not want to talk to inspector automatic typewriter anymore. Mental Status Exam Mental Status Exam Narrative: Pt is alert and oriented; behavior is friendly and intermittently cooperative, but also guarded and with disorganized behaviors, staring blankly and not talking; patient is not in distress; dressed in casual attire with unkempt hair but adequate hygiene; mood is described as good and expansive to blunted; eye contact appropriate when talking; other times, stares at the ceiling; Speech is normal rate, volume and prosody and not pressured; psychomotor agitation intermittently present; thought process is goal directed; Thought content perseverative on zoroastrianism themes; can be pertinent to relevant topics; some grandiosity; denies any SI/HI. AH and patient is internally preoccupied with significant thought blocking.? Patients insight and judgment are impaired. Diagnostics Vital Signs (24Hr): Vital Signs - 24 hr 07/22/21 21:35 Temperature 96.8 F Pulse Rate 74 Blood Pressure 174/72 H Pulse Oximetry 96 BMI result Body Mass Index 39.5 Labs Results: 07/15/21 15:12 07/20/21 09:07 Medications Medications Current Medications Acetaminophen (Acetaminophen 325 Mg Tablet) 650 mg PO Q6H PRN PRN Reason: Headache/Pain Mild Scale (1-3) Al Hydroxide/Mg Hydroxide (Magnesium Hydrox/Alum Hydrox 30 Ml Oral.Susp) 30 ml PO Q6H PRN PRN Reason: Heartburn/Nausea Apixaban (Apixaban 5 Mg Tablet) 5 mg PO BID [facility] Last Admin: 07/23/21 08:51 Dose: 5 mg Documented by: Cefuroxime Axetil (Cefuroxime Axetil 250 Mg Tablet) 250 mg PO Q12H [facility] Stop: 07/24/21 23:50 Last Admin: 07/23/21 08:51 Dose: 250 mg Documented by: Flecainide Acetate (Flecainide Acetate 50 Mg Tablet) 100 mg PO BID [facility] Last Admin: 07/23/21 08:51 Dose: 100 mg Documented by: Hydrochlorothiazide (Hydrochlorothiazide 25 Mg Tablet) 25 mg PO DAILY [facility] Last Admin: 07/23/21 08:51 Dose: 25 mg Documented by: Lorazepam (Lorazepam 1 Mg Tablet) 1 mg PO TID [facility] Last Admin: 07/23/21 08:51 Dose: 1 mg Documented by: Magnesium Hydroxide (Milk Of Magnesia 30 Ml Oral.Susp) 30 ml PO DAILY PRN PRN Reason: Constipation Metoprolol Succinate (Metoprolol Succinate Er 25 Mg Tab.Er.24h) 25 mg PO DAILY [facility]; Protocol Last Admin: 07/23/21 08:51 Dose: 25 mg Documented by: Olanzapine (Olanzapine Odt 10 Mg Tab.Rapdis) 15 mg TRANSLINGU BEDTIME [facility] Last Admin: 07/22/21 21:47 Dose: 15 mg Documented by: Pharmacy Consult (Consult Rx Perform Med Rec) 1 each MISCELLANE ONCE PRN PRN Reason: Consult order Sitagliptin Phosphate (Sitagliptin Phosphate 100 Mg Tablet) 100 mg PO DAILY [facility] Last Admin: 07/23/21 08:51 Dose: 100 mg Documented by: Trazodone HCl (Trazodone Hcl 50 Mg Tablet) 50 mg PO BEDTIME PRN PRN Reason: Insomnia Vitamin D (Cholecalciferol (Vitamin D3) 10 Mcg Tablet) 10 mcg PO DAILY [facility] Last Admin: 07/23/21 08:50 Dose: 10 mcg Documented by: Allergies Allergies Allergy/AdvReac Type Severity Reaction Status Date / Time bee pollen [bee stings] Allergy Swelling Verified 05/10/21 21:25 codeine Allergy Anaphylaxis Verified 05/10/21 21:25 Assessment & Plan Assessment & Plan (1) Bipolar 1 disorder with moderate jarrett: Status: Acute Code(s): F31.12 - Bipolar disorder, current episode manic without psychotic features, moderate Plan Patient is a 70-year-old female with history of hypertension, type 2 diabetes, AFib and with limited psychiatric history, 1st having psychotic symptoms this past February 2021 and then again admitted April on S1, who presents for 2 weeks of worsening psychotic symptoms in the face of going off her Zyprexa and getting a UTI. -patient's current presentation is very similar to her last admission during which time Zyprexa resolved symptoms; patient is currently willing taking Zyprexa. She is also taking antibiotics for UTI which is very likely contributory -currently patient is moderately manic with psychotic symptoms; will continue treatment Formulation: Patient has little to no clinical psychiatric history prior to manic episode this past February/March 2021 at which time she was successfully treated with Zyprexa. Reportedly patient did well while on Zyprexa however stopped taking it about 2 weeks ago and symptoms returned; patient also had a UTI which is very likely contributory. Collateral obtained from patient's daughter who described what sounds like subclinical hypomanic episodes throughout patient's life that were mild enough not to cause any concern and did not interrupt patient's function, but would help to explain why patient is having her current episode. Possible hx of some depression and other family member with bipolar. Plan: CV Q 15 minute checks 1. Bipolar Disorder (provisional): Ativan 1mg TID for catatonic-like symptom (pt is not currently catatonic); likely taper and dc Continue Zydis 15 mg q.h.s.; for psychotic symptoms; Leave for now since patient has stabilized in the past on only 10 mg Hypertension: Continue metoprolol succinate XR 50 mg daily RESTARTed chlorthalidone 25 mg tablet daily; BP elevevated; since recent LEONARD wi ll hold off on lisinopril for now and see how blood pressures go and bun/cr; Discussed w Dr. Samson still HOLD Lisinopril 40 mg tablet daily; monitor BP; increase to TID Diabetes: chronic sitagliptin 100 mg tablet (Januvia) daily Afib:chronic flecainide 100 mg tablet b.i.d. apixaban 5 mg tablet (Eliquis) B.i.d. cholecalciferol daily UTI: resolved; completing course of Ceftin LEONARD: resolved -recheck Bun/cr For day to day events and decision making... Hospital course: 07/18 patient remains religiously preoccupied with some disorganized behaviors, i nternally preoccupied and with auditory hallucinations. She is also able to be goal oriented in discussions. She says she will continue taking Zyprexa and says she will modify her behaviors so they are not startling to others. pt on 12 b. will likely switch to Zydis to ensure adherence 07/19 no change; collateral obtained indicates likely history of hypomanic episodes that were subclinical 07/20 patient remains in religiously preoccupied and with auditory hallucinations. She also intermittently stares off blankly during which time she does not talk or respond. These are patient is only catatonic like symptoms. [address] increased Zyprexa as patient remains with AH and is disorganization. However, also decided to add Ativan 1 mg t.i.d. to see if this can be helpful given Catatonic-like symptoms. At this point patient does not have catatonia and her only catatonic like symptom is her momentary periods of disassociation were she is internally preoccupied and staring into space. Otherwise patient moves around, talks, eats, drinks, toilets herself and showers without problem. 07/22/21- Continue plan of care 07/23/21 Added Ativan has not seem to make much difference and will consider discontinuing it. Patient remains without insight and She remains disorganized, intrusive and religiously preoccupied. She admitted that she has tried to get away with not taking her medications so it is unclear if she has been taking her full dose regularly. Will give current medications some more time at current dose. Blood pressure elevated again. Will get more readings but likely restart lisinopril, monitoring bun/cr Collateral Obtained: on 07/19 Patient's daughter Amaris visited and told inspector automatic typewriter that upon reflection she thinks her mother has had hypomanic episodes throughout her life, about 4 per year. She says her mother has several hobbies and is actually quite talented at writing children's books, making quilts, painting and making [place] ornamants. However for about 1 to 2 weeks every several months, instead of making her usual 1 quilt, she will make 10 of them, be extra excited about it and describing the details of it to others, unaware that it is excessive and that she is repeating herself. Same with books or paintings were she will be overly productive. Daughter says that this has not interrupt her function in other parts of her life and that her pieces are still excellently done and it has never raised any concerns other than in hindsight and in context of this current manic episode. Lizbet also thinks, but is not sure whether her mother has had bouts of depression throughout her life that have been mild but for which she was taking medication. She says that prior to this first clear manic episode in March 2021, her mother was experiencing several stressors related to family relationships with her other children. Amaris also wonders if her brother is bipolar as he seems to have a clear manic episodes. I spent minutes with the patient and/or on the patient floor today, greater than?50% of which was spent counseling/coordinating care. Patient educated on: diagnosis Informed Consent: does not understand Reason for contiued inpatient stay Substantial Risk for: inability to function and rapid decompensation
[2021-07-23 17:18] VITALS: BP 156/74; PULSE 77; RESP 14; TEMP 36.3; O2SAT 97
[2021-07-23 19:41] LABS: Influenza A PCR NEGATIVE (Negative); Influenza B PCR NEGATIVE (Negative); Resp Syncy Virus RNA Qual PCR NEGATIVE (Negative); SARS COV2 PCR INHOUSE NEGATIVE (Negative)
[2021-07-23 20:41] VITALS: BP 142/64; RESP 14
[2021-07-23] MEDS: OLANZapine ODT 10 MG TAB.RAPDIS 15 MG TRANSLINGU (20:52)
[2021-07-24] MEDS: Metoprolol Succinate ER 25 MG TAB.ER.24H PO (08:27)
[2021-07-24] MEDS: Cholecalciferol (Vitamin D3) 10 MCG TABLET PO (08:27)
[2021-07-24] MEDS: Flecainide Acetate 50 MG TABLET 100 MG PO ×2 (08:27→20:27)
[2021-07-24] MEDS: SITagliptin Phosphate 100 MG TABLET PO (08:27)
[2021-07-24] MEDS: hydroCHLOROthiazide 25 MG TABLET PO (08:27)
[2021-07-24] MEDS: Apixaban 5 MG TABLET PO ×2 (08:27→20:27)
[2021-07-24] MEDS: LORazepam 1 MG TABLET PO ×2 (08:27→14:08)
[2021-07-24 08:37] VITALS: BP 169/72; PULSE 70; RESP 18
[2021-07-24] MEDS: lisinopriL 5 MG TABLET PO (10:17)
[2021-07-24 10:19] VITALS: BP 115/72; PULSE 70; RESP 18
[2021-07-24 11:10] LABS: Blood Urea Nitrogen 13 mg/dL (9-16); Estimated Glomerular Filt Rate > 60
[2021-07-24 13:00] VITALS: BP 101/75; PULSE 65; RESP 18
--- NOTE | 2021-07-24 16:55 | HO.PSYCHPN ---
Subjective Subjective Date of Service: 07/24/21 Reason For Visit: Psychosis Interim History: Patient a little more calm today and though still perseverative on zoroastrian themes, much less pushy trying to get health science writer to say a specific prayer. 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 Patient said that she continues to take her Zyprexa and will no longer try To abscond with the pill. Today she says that the auditory hallucinations, voices are much diminished and almost not present but she misses them and wishes they were there as they were pleasant to her. She says that she is not fabricating their absence as she did yesterday. Mental Status Exam Mental Status Exam Narrative: Pt is alert and oriented; behavior is friendly and cooperative, less guarded and more disorganized behaviors; still intermittently stares blankly without talking but seems less frequently; patient is not in distress; dressed in casual attire with unkempt hair but adequate hygiene; mood is described as good and affect more present, calm and more naturally expressive; eye contact appropriate when talking; Speech is normal rate, volume and prosody and not pressured; no psychomotor agitationt; thought process is goal directed; Thought content is still perseverative on zoroastrian themes but with some lessening intensity; can be pertinent to relevant topics; some grandiosity; denies any SI/HI. AH reportedly diminished; pt still internally preoccupied but less so with less thought blocking.? Patients insight and judgment are impaired Diagnostics Vital Signs (24Hr): Vital Signs - 24 hr 07/23/21 17:18 07/23/21 20:41 07/24/21 08:37 Temperature 97.4 F Pulse Rate 77 70 Respiratory Rate 14 14 18 Blood Pressure 156/74 H 142/64 H 169/72 H Pulse Oximetry 97 07/24/21 10:19 07/24/21 13:00 Temperature Pulse Rate 70 65 Respiratory Rate 18 18 Blood Pressure 115/72 101/75 Pulse Oximetry BMI result Body Mass Index 39.5 Labs Results: 07/15/21 15:12 07/24/21 10:42 Labs: Laboratory Results - last 48 hr 07/23/21 07/24/21 18:51 10:42 BUN 13 Creatinine 0.80 Estim Creat Clear Calc 85.0 Estimated GFR > 60 Influenza Type A (PCR) NEGATIVE Influenza Type B (PCR) NEGATIVE RSV RNA Qual (PCR) NEGATIVE SARS-CoV-2 RNA (RT-PCR) NEGATIVE Medications Medications Current Medications Acetaminophen (Acetaminophen 325 Mg Tablet) 650 mg PO Q6H PRN PRN Reason: Headache/Pain Mild Scale (1-3) Al Hydroxide/Mg Hydroxide (Magnesium Hydrox/Alum Hydrox 30 Ml Oral.Susp) 30 ml PO Q6H PRN PRN Reason: Heartburn/Nausea Apixaban (Apixaban 5 Mg Tablet) 5 mg PO BID [facility] Last Admin: 07/24/21 08:27 Dose: 5 mg Documented by: Flecainide Acetate (Flecainide Acetate 50 Mg Tablet) 100 mg PO BID [facility] Last Admin: 07/24/21 08:27 Dose: 100 mg Documented by: Hydrochlorothiazide (Hydrochlorothiazide 25 Mg Tablet) 25 mg PO DAILY [facility] Last Admin: 07/24/21 08:27 Dose: 25 mg Documented by: Lisinopril (Lisinopril 5 Mg Tablet) 5 mg PO DAILY [facility]; Protocol Magnesium Hydroxide (Milk Of Magnesia 30 Ml Oral.Susp) 30 ml PO DAILY PRN PRN Reason: Constipation Metoprolol Succinate (Metoprolol Succinate Er 25 Mg Tab.Er.24h) 25 mg PO DAILY [facility]; Protocol Last Admin: 07/24/21 08:27 Dose: 25 mg Documented by: Olanzapine (Olanzapine Odt 10 Mg Tab.Rapdis) 15 mg TRANSLINGU BEDTIME [facility] Last Admin: 07/23/21 20:52 Dose: 15 mg Documented by: Pharmacy Consult (Consult Rx Perform Med Rec) 1 each MISCELLANE ONCE PRN PRN Reason: Consult order Sitagliptin Phosphate (Sitagliptin Phosphate 100 Mg Tablet) 100 mg PO DAILY [facility] Last Admin: 07/24/21 08:27 Dose: 100 mg Documented by: Trazodone HCl (Trazodone Hcl 50 Mg Tablet) 50 mg PO BEDTIME PRN PRN Reason: Insomnia Vitamin D (Cholecalciferol (Vitamin D3) 10 Mcg Tablet) 10 mcg PO DAILY [facility] Last Admin: 07/24/21 08:27 Dose: 10 mcg Documented by: Allergies Allergies Allergy/AdvReac Type Severity Reaction Status Date / Time bee pollen [bee stings] Allergy Swelling Verified 05/10/21 21:25 codeine Allergy Anaphylaxis Verified 05/10/21 21:25 Assessment & Plan Assessment & Plan (1) Bipolar 1 disorder with moderate jarrett: Status: Acute Code(s): F31.12 - Bipolar disorder, current episode manic without psychotic features, moderate Plan Patient is a 70-year-old female with history of hypertension, type 2 diabetes, AFib and with limited psychiatric history, 1st having psychotic symptoms this past February 2021 and then again admitted April on S1, who presents for 2 weeks of worsening psychotic symptoms in the face of going off her Zyprexa and getting a UTI. -patient's current presentation is very similar to her last admission during which time Zyprexa resolved symptoms; patient is currently willing taking Zyprexa. She is also taking antibiotics for UTI which is very likely contributory -currently patient is moderately manic with psychotic symptoms; will continue treatment Formulation: Patient has little to no clinical psychiatric history prior to manic episode this past February/March 2021 at which time she was successfully treated with Zyprexa. Reportedly patient did well while on Zyprexa however stopped taking it about 2 weeks ago and symptoms returned; patient also had a UTI which is very likely contributory. Collateral obtained from patient's daughter who described what sounds like subclinical hypomanic episodes throughout patient's life that were mild enough not to cause any concern and did not interrupt patient's function, but would help to explain why patient is having her current episode. Possible hx of some depression and other family member with bipolar. Plan: CV Q 15 minute checks 1. Bipolar Disorder (provisional): Ativan 1mg TID for catatonic-like symptom (pt is not currently catatonic); likely taper and dc Continue Zydis 15 mg q.h.s.; for psychotic symptoms; Leave for now since patient has stabilized in the past on only 10 mg Hypertension: Continue metoprolol succinate XR 50 mg daily RESTARTed chlorthalidone 25 mg tablet daily; BP elevated; since recent LEONARD had held off on lisinopril to monitor BP and bun/cr; Discussed w Dr. Samson Restart Lisinopril 5mg daily (home dose 40 mg tablet daily); monitor BP and titrate as clinically determined; BUN/Cr remain WNL Diabetes: chronic sitagliptin 100 mg tablet (Januvia) daily Afib:chronic flecainide 100 mg tablet b.i.d. apixaban 5 mg tablet (Eliquis) B.i.d. cholecalciferol daily UTI: resolved; completing course of Ceftin LEONARD: resolved -rechecked Bun/cr and remains WNL For day to day events and decision making... Hospital course: 07/18 patient remains religiously preoccupied with some disorganized behaviors, internally preoccupied and with auditory hallucinations. She is also able to be goal oriented in discussions. She says she will continue taking Zyprexa and says she will modify her behaviors so they are not startling to others. pt on 12 b. will likely switch to Zydis to ensure adherence 07/19 no change; collateral obtained indicates likely history of hypomanic episodes that were subclinical 07/20 patient remains in religiously preoccupied and with auditory hallucinations. She also intermittently stares off blankly during which time she does not talk or respond. These are patient is only catatonic like symptoms. Press Writer increased Zyprexa as patient remains with AH and is disorganization. However, also decided to add Ativan 1 mg t.i.d. to see if this can be helpful given Catatonic-like symptoms. At this point patient does not have catatonia and her only catatonic like symptom is her momentary periods of disassociation were she is internally preoccupied and staring into space. Otherwise patient moves around, talks, eats, drinks, toilets herself and showers without problem. 07/22/21- Continue plan of care 07/23/21 Added Ativan has not seem to make much difference and will consider discontinuing it. Patient remains without insight and She remains disorganized, intrusive and religiously preoccupied. She admitted that she has tried to get away with not taking her medications so it is unclear if she has been taking her full dose regularly. Will give current medications some more time at current dose. Blood pressure elevated again. Will get more readings but likely restart lisinopril, monitoring bun/cr 07/24 Patient seems to be more stable, less internally preoccupied and though still perseverating on zoroastrian themes, less intensely and less intrusive to others. She reports auditory hallucinations are gone though she misses. Hopefully this trajectory will continue. Collateral Obtained: on 07/19 Patient's daughter Amaris visited and told health science writer that upon reflection she thinks her mother has had hypomanic episodes throughout her life, about 4 per year. She says her mother has several hobbies and is actually quite talented at writing children's books, making quilts, painting and making [place] ornamants. However for about 1 to 2 weeks every several months, instead of making her usual 1 quilt, she will make 10 of them, be extra excited about it and describing the details of it to others, unaware that it is excessive and that she is repeating herself. Same with books or paintings were she will be overly productive. Daughter says that this has not interrupt her function in other parts of her life and that her pieces are still excellently done and it has never raised any concerns other than in hindsight and in context of this current manic episode. Lizbet also thinks, but is not sure whether her mother has had bouts of depression throughout her life that have been mild but for which she was taking medication. She says that prior to this first clear manic episode in March 2021, her mother was experiencing several stressors related to family relationships with her other children. Amaris also wonders if her brother is bipolar as he seems to have a clear manic episodes. I spent minutes with the patient and/or on the patient floor today, greater than?50% of which was spent counseling/coordinating care. Patient educated on: diagnosis Informed Consent: further education needed Reason for contiued inpatient stay Substantial Risk for: rapid decompensation
[2021-07-24] MEDS: OLANZapine ODT 10 MG TAB.RAPDIS 15 MG TRANSLINGU (20:25)
[2021-07-25] MEDS: lisinopriL 5 MG TABLET PO (08:08)
[2021-07-25] MEDS: Apixaban 5 MG TABLET PO ×2 (08:08→20:14)
[2021-07-25] MEDS: Cholecalciferol (Vitamin D3) 10 MCG TABLET PO (08:08)
[2021-07-25] MEDS: Flecainide Acetate 50 MG TABLET 100 MG PO ×2 (08:08→20:14)
[2021-07-25] MEDS: hydroCHLOROthiazide 25 MG TABLET PO (08:08)
[2021-07-25] MEDS: SITagliptin Phosphate 100 MG TABLET PO (08:08)
[2021-07-25] MEDS: Metoprolol Succinate ER 25 MG TAB.ER.24H PO (08:09)
[2021-07-25 08:12] VITALS: BP 138/72; PULSE 68; RESP 18
--- NOTE | 2021-07-25 10:33 | HO.PSYCHPN ---
Subjective Subjective Date of Service: 07/25/21 Reason For Visit: Psychosis Interim History: Patient more present and able to engage in given take conversation than previously. 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 However later in the day patient went yelling down the hallway about scientology themes and challenging people's scientology beliefs. Mental Status Exam Mental Status Exam Narrative: Pt is alert and oriented; behavior is friendly and cooperative, less guarded and more organized behaviors, however can still be disorganized and intrusive; still intermittently stares blankly without talking but seems less frequently; patient is not in distress; dressed in casual attire with unkempt hair but adequate hygiene; mood is described as good and affect more present, calm and more naturally expressive; eye contact appropriate when talking; Speech is normal rate, volume and prosody and not pressured; no psychomotor agitationt; thought process is goal directed; Thought content is still perseverative on scientology themes but able to discuss other things for longer period of time and stay pertinent to relevant topics; some grandiosity; denies any SI/HI. AH reportedly diminished; pt still internally preoccupied but less so with less thought blocking.? Patients insight and judgment are impaired Diagnostics Vital Signs (24Hr): Vital Signs - 24 hr 07/24/21 13:00 07/25/21 08:12 Pulse Rate 65 68 Respiratory Rate 18 18 Blood Pressure 101/75 138/72 Oxygen Delivery Method Room Air Room Air BMI result Body Mass Index 39.5 Labs Results: 07/15/21 15:12 07/24/21 10:42 Labs: Laboratory Results - last 48 hr 07/23/21 07/24/21 18:51 10:42 BUN 13 Creatinine 0.80 Estim Creat Clear Calc 85.0 Estimated GFR > 60 Influenza Type A (PCR) NEGATIVE Influenza Type B (PCR) NEGATIVE RSV RNA Qual (PCR) NEGATIVE SARS-CoV-2 RNA (RT-PCR) NEGATIVE Medications Medications Current Medications Acetaminophen (Acetaminophen 325 Mg Tablet) 650 mg PO Q6H PRN PRN Reason: Headache/Pain Mild Scale (1-3) Al Hydroxide/Mg Hydroxide (Magnesium Hydrox/Alum Hydrox 30 Ml Oral.Susp) 30 ml PO Q6H PRN PRN Reason: Heartburn/Nausea Apixaban (Apixaban 5 Mg Tablet) 5 mg PO BID [facility] Last Admin: 07/25/21 08:08 Dose: 5 mg Flecainide Acetate (Flecainide Acetate 50 Mg Tablet) 100 mg PO BID [facility] Last Admin: 07/25/21 08:08 Dose: 100 mg Hydrochlorothiazide (Hydrochlorothiazide 25 Mg Tablet) 25 mg PO DAILY [facility] Last Admin: 07/25/21 08:08 Dose: 25 mg Lisinopril (Lisinopril 5 Mg Tablet) 5 mg PO DAILY [facility]; Protocol Last Admin: 07/25/21 08:08 Dose: 5 mg Magnesium Hydroxide (Milk Of Magnesia 30 Ml Oral.Susp) 30 ml PO DAILY PRN PRN Reason: Constipation Metoprolol Succinate (Metoprolol Succinate Er 25 Mg Tab.Er.24h) 25 mg PO DAILY [facility]; Protocol Last Admin: 07/25/21 08:09 Dose: 25 mg Olanzapine (Olanzapine Odt 10 Mg Tab.Rapdis) 15 mg TRANSLINGU BEDTIME [facility] Last Admin: 07/24/21 20:25 Dose: 15 mg Pharmacy Consult (Consult Rx Perform Med Rec) 1 each MISCELLANE ONCE PRN PRN Reason: Consult order Sitagliptin Phosphate (Sitagliptin Phosphate 100 Mg Tablet) 100 mg PO DAILY [facility] Last Admin: 07/25/21 08:08 Dose: 100 mg Trazodone HCl (Trazodone Hcl 50 Mg Tablet) 50 mg PO BEDTIME PRN PRN Reason: Insomnia Vitamin D (Cholecalciferol (Vitamin D3) 10 Mcg Tablet) 10 mcg PO DAILY [facility] Last Admin: 07/25/21 08:08 Dose: 10 mcg Allergies Allergies Allergy/AdvReac Type Severity Reaction Status Date / Time bee pollen [bee stings] Allergy Swelling Verified 05/10/21 21:25 codeine Allergy Anaphylaxis Verified 05/10/21 21:25 Assessment & Plan Assessment & Plan (1) Bipolar 1 disorder with moderate jarrett: Status: Acute Code(s): F31.12 - Bipolar disorder, current episode manic without psychotic features, moderate Plan Patient is a 70-year-old female with history of hypertension, type 2 diabetes, AFib and with limited psychiatric history, 1st having psychotic symptoms this past February 2021 and then again admitted April on , who presents for 2 weeks of worsening psychotic symptoms in the face of going off her Zyprexa and getting a UTI. -patient's current presentation is very similar to her last admission during which time Zyprexa resolved symptoms; patient is currently willing taking Zyprexa. She is also taking antibiotics for UTI which is very likely contributory -currently patient is moderately manic with psychotic symptoms; will continue treatment Formulation: Patient has little to no clinical psychiatric history prior to manic episode this past March 2021 at which time she was successfully treated with Zyprexa. Reportedly patient did well while on Zyprexa however stopped taking it about 2 weeks ago and symptoms returned; patient also had a UTI which is very likely contributory. Collateral obtained from patient's daughter who described what sounds like subclinical hypomanic episodes throughout patient's life that were mild enough not to cause any concern and did not interrupt patient's function, but would help to explain why patient is having her current episode. Possible hx of some depression and other family member with bipolar. Plan: CV Q 15 minute checks 1. Bipolar Disorder (provisional): DC Ativan Increase to Zydis 20 mg q.h.s.; for psychotic symptoms; Leave for now since patient has stabilized in the past on only 10 mg Hypertension: Continue metoprolol succinate XR 50 mg daily RESTARTed chlorthalidone 25 mg tablet daily; BP elevated; since recent LEONARD had held off on lisinopril to monitor BP and bun/cr; Discussed w Dr. Samson Restart Lisinopril 5mg daily (home dose 40 mg tablet daily); monitor BP and titrate as clinically determined; BUN/Cr remain WNL Diabetes: chronic sitagliptin 100 mg tablet (Januvia) daily Afib:chronic flecainide 100 mg tablet b.i.d. apixaban 5 mg tablet (Eliquis) B.i.d. cholecalciferol daily UTI: resolved; completing course of Ceftin LEONARD: resolved -rechecked Bun/cr and remains WNL For day to day events and decision making... Hospital course: 07/18 patient remains religiously preoccupied with some disorganized behaviors, internally preoccupied and with auditory hallucinations. She is also able to be goal oriented in discussions. She says she will continue taking Zyprexa and says she will modify her behaviors so they are not startling to others. pt on 12 b. will likely switch to Zydis to ensure adherence 07/19 no change; collateral obtained indicates likely history of hypomanic episodes that were subclinical 07/20 patient remains in religiously preoccupied and with auditory hallucinations. She also intermittently stares off blankly during which time she does not talk or respond. These are patient is only catatonic like symptoms. Geophysics Professor increased Zyprexa as patient remains with AH and is disorganization. However, also decided to add Ativan 1 mg t.i.d. to see if this can be helpful given Catatonic-like symptoms. At this point patient does not have catatonia and her only catatonic like symptom is her momentary periods of disassociation were she is internally preoccupied and staring into space. Otherwise patient moves around, talks, eats, drinks, toilets herself and showers without problem. 07/22/21- Continue plan of care 07/23/21 Added Ativan has not seem to make much difference and will consider discontinuing it. Patient remains without insight and She remains disorganized, intrusive and religiously preoccupied. She admitted that she has tried to get away with not taking her medications so it is unclear if she has been taking her full dose regularly. Will give current medications some more time at current dose. Blood pressure elevated again. Will get more readings but likely restart lisinopril, monitoring bun/cr 07/24 Patient seems to be more stable, less internally preoccupied and though still perseverating on scientology themes, less intensely and less intrusive to others. She reports auditory hallucinations are gone though she misses. Hopefully this trajectory will continue. 07/25 patient is mildly improved able to maintain a regular conversation for longer period of time without reverting to scientology themes and pressuring others to say a specific scientology prayer; however still can stare blankly, have disorganized behaviors and intrusive to others; will increase Zyprexa to 20 mg Collateral Obtained: on 07/19 Patient's daughter Amaris visited and told insurance writer that upon reflection she thinks her mother has had hypomanic episodes throughout her life, about 4 per year. She says her mother has several hobbies and is actually quite talented at writing children's books, making quilts, painting and making [place] ornamants. However for about 1 to 2 weeks every several months, instead of making her usual 1 quilt, she will make 10 of them, be extra excited about it and describing the details of it to others, unaware that it is excessive and that she is repeating herself. Same with books or paintings were she will be overly productive. Daughter says that this has not interrupt her function in other parts of her life and that her pieces are still excellently done and it has never raised any concerns other than in hindsight and in context of this current manic episode. Lizbet also thinks, but is not sure whether her mother has had bouts of depression throughout her life that have been mild but for which she was taking medication. She says that prior to this first clear manic episode in March 2021, her mother was experiencing several stressors related to family relationships with her other children. Amaris also wonders if her brother is bipolar as he seems to have a clear manic episodes. I spent minutes with the patient and/or on the patient floor today, greater than?50% of which was spent counseling/coordinating care. Patient educated on: diagnosis Informed Consent: further education needed Reason for contiued inpatient stay Substantial Risk for: rapid decompensation
[2021-07-25 13:00] VITALS: BP 127/63; PULSE 64; RESP 18
[2021-07-25 18:00] VITALS: BP 157/67; PULSE 68; RESP 14
[2021-07-25] MEDS: OLANZapine ODT 10 MG TAB.RAPDIS 15 MG TRANSLINGU (20:14)
[2021-07-26] MEDS: hydroCHLOROthiazide 25 MG TABLET PO (08:11)
[2021-07-26] MEDS: lisinopriL 5 MG TABLET PO (08:11)
[2021-07-26] MEDS: SITagliptin Phosphate 100 MG TABLET PO (08:11)
[2021-07-26] MEDS: Cholecalciferol (Vitamin D3) 10 MCG TABLET PO (08:11)
[2021-07-26] MEDS: Flecainide Acetate 50 MG TABLET 100 MG PO ×2 (08:11→20:40)
[2021-07-26] MEDS: Metoprolol Succinate ER 25 MG TAB.ER.24H PO (08:12)
[2021-07-26] MEDS: Apixaban 5 MG TABLET PO ×2 (08:12→20:40)
[2021-07-26 08:52] VITALS: BP 126/77; PULSE 88; RESP 14; TEMP 36.5; O2SAT 95
[2021-07-26 16:29] VITALS: BP 142/63; PULSE 60; RESP 14; TEMP 36.2
--- NOTE | 2021-07-26 17:31 | HO.PSYCHPN ---
Subjective Subjective Date of Service: 07/26/21 Reason For Visit: Psychosis Interim History: Late entry for patient seen on 07/26 Coring Machine Operator met with patient and her daughter Lizbet. Both agree that patient is improved and able to maintain and focus on regular conversation without reverting to scientology themes. Patient does have insight and says she feels is overall were clear minded than when she came for admission; she says she feels more in control. She says she still has auditory hallucinations but they are have become infrequent. Patient said that yesterday when she yelled down the ramirez about people for pending, she heard a voice telling her to do so. She says she has not heard any today. Patient agrees to increased Zyprexa dose. She says she is a little more tired in the morning but will give increased dose a try. Patient struggles to acccept that others are bothered and pushed away by her behaviors. She also struggled but attempted to understand the difference between being in control of her spirituality and being driven and out of control by psychiatric illness. Mental Status Exam Mental Status Exam Narrative: Pt is alert and oriented; behavior is friendly and cooperative, less guarded and more organized behaviors, however can still be disorganized and intrusive; still intermittently stares blankly without talking but seems less frequently; patient is not in distress; dressed in casual attire with unkempt hair but adequate hygiene; mood is described as good and affect more present, calm and more naturally expressive; eye contact appropriate when talking; Speech is normal rate, volume and prosody and not pressured; no psychomotor agitationt; thought process is goal directed; Thought content is still perseverative on scientology themes but able to discuss other things for longer period of time and stay pertinent to relevant topics; some grandiosity; denies any SI/HI. AH reportedly diminished; pt still internally preoccupied but less so with less thought blocking.? Patients insight and judgment are impaired Diagnostics Vital Signs (24Hr): Vital Signs - 24 hr 07/27/21 08:50 Temperature 98 F Pulse Rate 66 Blood Pressure 120/68 Pulse Oximetry 95 Oxygen Delivery Method Room Air BMI result Body Mass Index 39.5 Labs Results: 07/15/21 15:12 07/24/21 10:42 Medications Medications Current Medications Acetaminophen (Acetaminophen 325 Mg Tablet) 650 mg PO Q6H PRN PRN Reason: Headache/Pain Mild Scale (1-3) Al Hydroxide/Mg Hydroxide (Magnesium Hydrox/Alum Hydrox 30 Ml Oral.Susp) 30 ml PO Q6H PRN PRN Reason: Heartburn/Nausea Apixaban (Apixaban 5 Mg Tablet) 5 mg PO BID [facility] Last Admin: 07/27/21 08:44 Dose: 5 mg Docusate Sodium (Docusate Sodium 100 Mg Capsule) 100 mg PO BID PRN PRN Reason: Constipation Flecainide Acetate (Flecainide Acetate 50 Mg Tablet) 100 mg PO BID [facility] Last Admin: 07/27/21 08:44 Dose: 100 mg Hydrochlorothiazide (Hydrochlorothiazide 25 Mg Tablet) 25 mg PO DAILY [facility] Last Admin: 07/27/21 08:44 Dose: 25 mg Lisinopril (Lisinopril 5 Mg Tablet) 5 mg PO DAILY [facility]; Protocol Last Admin: 07/27/21 08:44 Dose: 5 mg Magnesium Hydroxide (Milk Of Magnesia 30 Ml Oral.Susp) 30 ml PO DAILY PRN PRN Reason: Constipation Metoprolol Succinate (Metoprolol Succinate Er 25 Mg Tab.Er.24h) 25 mg PO DAILY [facility]; Protocol Last Admin: 07/27/21 08:44 Dose: 25 mg Olanzapine (Olanzapine Odt 10 Mg Tab.Rapdis) 20 mg TRANSLINGU BEDTIME [facility] Last Admin: 07/26/21 20:40 Dose: 20 mg Pharmacy Consult (Consult Rx Perform Med Rec) 1 each MISCELLANE ONCE PRN PRN Reason: Consult order Sitagliptin Phosphate (Sitagliptin Phosphate 100 Mg Tablet) 100 mg PO DAILY [facility] Last Admin: 07/27/21 08:44 Dose: 100 mg Trazodone HCl (Trazodone Hcl 50 Mg Tablet) 50 mg PO BEDTIME PRN PRN Reason: Insomnia Vitamin D (Cholecalciferol (Vitamin D3) 10 Mcg Tablet) 10 mcg PO DAILY [facility] Last Admin: 07/27/21 08:44 Dose: 10 mcg Allergies Allergies Allergy/AdvReac Type Severity Reaction Status Date / Time bee pollen [bee stings] Allergy Swelling Verified 05/10/21 21:25 codeine Allergy Anaphylaxis Verified 05/10/21 21:25 Assessment & Plan Assessment & Plan (1) Bipolar 1 disorder with moderate jarrett: Status: Acute Code(s): F31.12 - Bipolar disorder, current episode manic without psychotic features, moderate Plan Patient is a 70-year-old female with history of hypertension, type 2 diabetes, AFib and with limited psychiatric history, 1st having psychotic symptoms this past February 2021 and then again admitted April on S1, who presents for 2 weeks of worsening psychotic symptoms in the face of going off her Zyprexa and getting a UTI. -patient's current presentation is very similar to her last admission during which time Zyprexa resolved symptoms; patient is currently willing taking Zyprexa. She is also taking antibiotics for UTI which is very likely contributory -currently patient is moderately manic with psychotic symptoms; will continue treatment Formulation: Patient has little to no clinical psychiatric history prior to manic episode this past February/March 2021 at which time she was successfully treated with Zyprexa. Reportedly patient did well while on Zyprexa however stopped taking it about 2 weeks ago and symptoms returned; patient also had a UTI which is very likely contributory. Collateral obtained from patient's daughter who described what sounds like subclinical hypomanic episodes throughout patient's life that were mild enough not to cause any concern and did not interrupt patient's function, but would help to explain why patient is having her current episode. Possible hx of some depression and other family member with bipolar. Plan: CV Q 15 minute checks 1. Bipolar Disorder (provisional): DC Ativan Increase to Zydis 20 mg q.h.s.; for psychotic symptoms; Leave for now since patient has stabilized in the past on only 10 mg Hypertension: Continue metoprolol succinate XR 50 mg daily RESTARTed chlorthalidone 25 mg tablet daily; BP elevated; since recent LEONARD had held off on lisinopril to monitor BP and bun/cr; Discussed w Dr. Samson Restart Lisinopril 5mg daily (home dose 40 mg tablet daily); monitor BP and titrate as clinically determined; BUN/Cr remain WNL Diabetes: chronic sitagliptin 100 mg tablet (Januvia) daily Afib:chronic flecainide 100 mg tablet b.i.d. apixaban 5 mg tablet (Eliquis) B.i.d. cholecalciferol daily UTI: resolved; completing course of Ceftin LEONARD: resolved -rechecked Bun/cr and remains WNL For day to day events and decision making... Hospital course: 07/18 patient remains religiously preoccupied with some disorganized behaviors, internally preoccupied and with auditory hallucinations. She is also able to be goal oriented in discussions. She says she will continue taking Zyprexa and says she will modify her behaviors so they are not startling to others. pt on 12 . will likely switch to Zydis to ensure adherence 07/19 no change; collateral obtained indicates likely history of hypomanic episodes that were subclinical 07/20 patient remains in religiously preoccupied and with auditory hallucinations. She also intermittently stares off blankly during which time she does not talk or respond. These are patient is only catatonic like symptoms. Coring Machine Operator increased Zyprexa as patient remains with AH and is disorganization. However, also decided to add Ativan 1 mg t.i.d. to see if this can be helpful given Catatonic-like symptoms. At this point patient does not have catatonia and her only catatonic like symptom is her momentary periods of disassociation were she is internally preoccupied and staring into space. Otherwise patient moves around, talks, eats, drinks, toilets herself and showers without problem. 07/22/21- Continue plan of care 07/23/21 Added Ativan has not seem to make much difference and will consider discontinuing it. Patient remains without insight and She remains disorganized, intrusive and religiously preoccupied. She admitted that she has tried to get away with not taking her medications so it is unclear if she has been taking her full dose regularly. Will give current medications some more time at current dose. Blood pressure elevated again. Will get more readings but likely restart lisinopril, monitoring bun/cr 07/24 Patient seems to be more stable, less internally preoccupied and though still perseverating on scientology themes, less intensely and less intrusive to others. She reports auditory hallucinations are gone though she misses. Hopefully this trajectory will continue. 07/25 patient is mildly improved able to maintain a regular conversation for longer period of time without reverting to scientology themes and pressuring others to say a specific scientology prayer; however still can stare blankly, have disorganized behaviors and intrusive to others; will increase Zyprexa to 20 mg 07/26 remains mildy improved; trying to understand that auditory hallucinations are part of psychiatric illness and that she has been somewhat out of control during this admission. continue current tx Collateral Obtained: on 07/19 Patient's daughter Amaris visited and told functional tester typewriters that upon reflection she thinks her mother has had hypomanic episodes throughout her life, about 4 per year. She says her mother has several hobbies and is actually quite talented at writing children's books, making quilts, painting and making [employer] ornamants. However for about 1 to 2 weeks every several months, instead of making her usual 1 quilt, she will make 10 of them, be extra excited about it and describing the details of it to others, unaware that it is excessive and that she is repeating herself. Same with books or paintings were she will be overly productive. Daughter says that this has not interrupt her function in other parts of her life and that her pieces are still excellently done and it has never raised any concerns other than in hindsight and in context of this current manic episode. Lizbet also thinks, but is not sure whether her mother has had bouts of depression throughout her life that have been mild but for which she was taking medication. She says that prior to this first clear manic episode in March 2021, her mother was experiencing several stressors related to family relationships with her other children. Amaris also wonders if her brother is bipolar as he seems to have a clear manic episodes. I spent minutes with the patient and/or on the patient floor today, greater than?50% of which was spent counseling/coordinating care. Patient educated on: diagnosis and medication risk/benefits Informed Consent: further education needed Reason for contiued inpatient stay Substantial Risk for: rapid decompensation
[2021-07-26] MEDS: Docusate Sodium 100 MG CAPSULE PO (20:40)
[2021-07-26] MEDS: OLANZapine ODT 10 MG TAB.RAPDIS 20 MG TRANSLINGU (20:40)
[2021-07-27] MEDS: Apixaban 5 MG TABLET PO ×2 (08:44→21:55)
[2021-07-27] MEDS: hydroCHLOROthiazide 25 MG TABLET PO (08:44)
[2021-07-27] MEDS: Flecainide Acetate 50 MG TABLET 100 MG PO ×2 (08:44→21:55)
[2021-07-27] MEDS: Metoprolol Succinate ER 25 MG TAB.ER.24H PO (08:44)
[2021-07-27] MEDS: Cholecalciferol (Vitamin D3) 10 MCG TABLET PO (08:44)
[2021-07-27] MEDS: lisinopriL 5 MG TABLET PO (08:44)
[2021-07-27] MEDS: SITagliptin Phosphate 100 MG TABLET PO (08:44)
[2021-07-27 08:50] VITALS: BP 120/68; PULSE 66; TEMP 36.6; O2SAT 95
--- NOTE | 2021-07-27 17:31 | P.PNPSI_ITS ---
Subjective Subjective Date of Service: 07/27/21 Reason For Visit: Psychosis Interim History: Patient today remains more present and able to have irregular discourse. However today she explained that she believes that she is the literal bride of [place], that she will literally be his and the only woman to be so and that this is separate from the Quaker doctrine that the adventist in all christians are to [place], that she alone has a special designation of being to [place]. She says this will happen soon. Cane Cutter discussed how this is delusional idea. Patient politely decided to conclude the discussion not wanting to hear what underwriter had to say about it, however both agreed that she did so with her words rather than just blankly stop talking and turn away from underwriter; both joked about it and agreed that it was improvement. Mental Status Exam Mental Status Exam Narrative: Pt is alert and oriented; behavior is friendly and cooperative, less guarded and more organized behaviors, however can still be disorganized and intrusive; still intermittently stares blankly without talking but seems less frequently; patient is not in distress; dressed in casual attire with unkempt hair but adequate hygiene; mood is described as good and affect more present, calm and more naturally expressive; eye contact appropriate when talking; Speech is normal rate, volume and prosody and not pressured; no psychomotor agitationt; thought process is goal directed; Thought content is still perseverative on mandaeism themes but able to discuss other things for longer period of time and stay pertinent to relevant topics; delusional idea and grandiosity present; denies any SI/HI. AH reportedly diminished; pt still intermittently internally preoccupied but less so; much less thought blocking.? Patients insight and judgment are impaired but have improved. Diagnostics Vital Signs (24Hr): Vital Signs - 24 hr 07/27/21 08:50 Temperature 98 F Pulse Rate 66 Blood Pressure 120/68 Pulse Oximetry 95 Oxygen Delivery Method Room Air BMI result Body Mass Index 39.5 Labs Results: 07/15/21 15:12 07/24/21 10:42 Medications Medications Current Medications Acetaminophen (Acetaminophen 325 Mg Tablet) 650 mg PO Q6H PRN PRN Reason: Headache/Pain Mild Scale (1-3) Al Hydroxide/Mg Hydroxide (Magnesium Hydrox/Alum Hydrox 30 Ml Oral.Susp) 30 ml PO Q6H PRN PRN Reason: Heartburn/Nausea Apixaban (Apixaban 5 Mg Tablet) 5 mg PO BID [facility] Last Admin: 07/27/21 08:44 Dose: 5 mg Docusate Sodium (Docusate Sodium 100 Mg Capsule) 100 mg PO BID PRN PRN Reason: Constipation Flecainide Acetate (Flecainide Acetate 50 Mg Tablet) 100 mg PO BID [facility] Last Admin: 07/27/21 08:44 Dose: 100 mg Hydrochlorothiazide (Hydrochlorothiazide 25 Mg Tablet) 25 mg PO DAILY [facility] Last Admin: 07/27/21 08:44 Dose: 25 mg Lisinopril (Lisinopril 5 Mg Tablet) 5 mg PO DAILY [facility]; Protocol Last Admin: 07/27/21 08:44 Dose: 5 mg Magnesium Hydroxide (Milk Of Magnesia 30 Ml Oral.Susp) 30 ml PO DAILY PRN PRN Reason: Constipation Metoprolol Succinate (Metoprolol Succinate Er 25 Mg Tab.Er.24h) 25 mg PO DAILY [facility]; Protocol Last Admin: 07/27/21 08:44 Dose: 25 mg Olanzapine (Olanzapine Odt 10 Mg Tab.Rapdis) 20 mg TRANSLINGU BEDTIME [facility] Last Admin: 07/26/21 20:40 Dose: 20 mg Pharmacy Consult (Consult Rx Perform Med Rec) 1 each MISCELLANE ONCE PRN PRN Reason: Consult order Sitagliptin Phosphate (Sitagliptin Phosphate 100 Mg Tablet) 100 mg PO DAILY [facility] Last Admin: 07/27/21 08:44 Dose: 100 mg Trazodone HCl (Trazodone Hcl 50 Mg Tablet) 50 mg PO BEDTIME PRN PRN Reason: Insomnia Vitamin D (Cholecalciferol (Vitamin D3) 10 Mcg Tablet) 10 mcg PO DAILY [facility] Last Admin: 07/27/21 08:44 Dose: 10 mcg Allergies Allergies Allergy/AdvReac Type Severity Reaction Status Date / Time bee pollen [bee stings] Allergy Swelling Verified 05/10/21 21:25 codeine Allergy Anaphylaxis Verified 05/10/21 21:25 Assessment & Plan Assessment & Plan (1) Bipolar 1 disorder with moderate jarrett: Status: Acute Code(s): F31.12 - Bipolar disorder, current episode manic without psychotic features, moderate Plan Patient is a 70-year-old female with history of hypertension, type 2 diabetes, AFib and with limited psychiatric history, 1st having psychotic symptoms this past February 2021 and then again admitted April on S1, who presents for 2 weeks of worsening psychotic symptoms in the face of going off her Zyprexa and getting a UTI. -patient's current presentation is very similar to her last admission during which time Zyprexa resolved symptoms; patient is currently willing taking Zyprexa. She is also taking antibiotics for UTI which is very likely contributory -currently patient is moderately manic with psychotic symptoms; will continue treatment Formulation: Patient has little to no clinical psychiatric history prior to manic episode this past March 2021 at which time she was successfully treated with Zyprexa. Reportedly patient did well while on Zyprexa however stopped taking it about 2 weeks ago and symptoms returned; patient also had a UTI which is very likely contributory. Collateral obtained from patient's daughter who described what sounds like subclinical hypomanic episodes throughout patient's life that were mild enough not to cause any concern and did not interrupt patient's function, but would help to explain why patient is having her current episode. Possible hx of some depression and other family member with bipolar. Plan: CV Q 15 minute checks 1. Bipolar Disorder (provisional): DC Ativan Increase to Zydis 20 mg q.h.s.; for psychotic symptoms; Leave for now since patient has stabilized in the past on only 10 mg Hypertension: Continue metoprolol succinate XR 50 mg daily RESTARTed chlorthalidone 25 mg tablet daily; BP elevated; since recent LEONARD had held off on lisinopril to monitor BP and bun/cr; Discussed w Dr. Samson Restart Lisinopril 5mg daily (home dose 40 mg tablet daily); monitor BP and titrate as clinically determined; BUN/Cr remain WNL Diabetes: chronic sitagliptin 100 mg tablet (Januvia) daily Afib:chronic flecainide 100 mg tablet b.i.d. apixaban 5 mg tablet (Eliquis) B.i.d. cholecalciferol daily UTI: resolved; completing course of Ceftin LEONARD: resolved -rechecked Bun/cr and remains WNL For day to day events and decision making... Hospital course: 07/18 patient remains religiously preoccupied with some disorganized behaviors, internally preoccupied and with auditory hallucinations. She is also able to be goal oriented in discussions. She says she will continue taking Zyprexa and says she will modify her behaviors so they are not startling to others. pt on 12 . will likely switch to Zydis to ensure adherence 07/19 no change; collateral obtained indicates likely history of hypomanic episodes that were subclinical 07/20 patient remains in religiously preoccupied and with auditory hallucinations. She also intermittently stares off blankly during which time she does not talk or respond. These are patient is only catatonic like symptoms. Cane Cutter increased Zyprexa as patient remains with AH and is disorganization. However, also decided to add Ativan 1 mg t.i.d. to see if this can be helpful given Catatonic-like symptoms. At this point patient does not have catatonia and her only catatonic like symptom is her momentary periods of disassociation were she is internally preoccupied and staring into space. Otherwise patient moves around, talks, eats, drinks, toilets herself and showers without problem. 07/22/21- Continue plan of care 07/23/21 Added Ativan has not seem to make much difference and will consider discontinuing it. Patient remains without insight and She remains disorganized, intrusive and religiously preoccupied. She admitted that she has tried to get away with not taking her medications so it is unclear if she has been taking her full dose regularly. Will give current medications some more time at current dose. Blood pressure elevated again. Will get more readings but likely restart lisinopril, monitoring bun/cr 07/24 Patient seems to be more stable, less internally preoccupied and though still perseverating on mandaeism themes, less intensely and less intrusive to others. She reports auditory hallucinations are gone though she misses. Hopefully this trajectory will continue. 07/25 patient is mildly improved able to maintain a regular conversation for longe r period of time without reverting to mandaeism themes and pressuring others to say a specific mandaeism prayer; however still can stare blankly, have disorganized behaviors and intrusive to others; will increase Zyprexa to 20 mg 07/26 remains mildy improved; trying to understand that auditory hallucinations are part of psychiatric illness and that she has been somewhat out of control during this admission. continue current tx 07/27 though patient has improved, is more clear minded, less thought blocking, less internally preoccupied and with much fewer instances of auditory hallucinations, she is still having delusional and grandiose idea and does not have insight that this is due to her psychiatric illness. Collateral Obtained: on 07/19 Patient's daughter Amaris visited and told underwriter that upon reflection she thinks her mother has had hypomanic episodes throughout her life, about 4 per year. She says her mother has several hobbies and is actually quite talent ed at writing children's books, making quilts, painting and making [employer] ornamants. However for about 1 to 2 weeks every several months, instead of making her usual 1 quilt, she will make 10 of them, be extra excited about it and describing the details of it to others, unaware that it is excessive and that she is repeating herself. Same with books or paintings were she will be overly productive. Daughter says that this has not interrupt her function in other parts of her life and that her pieces are still excellently done and it has never raised any concerns other than in hindsight and in context of this current manic episode. Lizbet also thinks, but is not sure whether her mother has had bouts of depression throughout her life that have been mild but for which she was taking medication. She says that prior to this first clear manic episode in March 2021, her mother was experiencing several stressors related to family relationships with her other children. Amaris also wonders if her brother is bipolar as he seems to have a clear manic episodes. I spent minutes with the patient and/or on the patient floor today, greater than?50% of which was spent counseling/coordinating care. Patient educated on: diagnosis Informed Consent: further education needed Reason for contiued inpatient stay Substantial Risk for: stable for discharge
[2021-07-27] MEDS: OLANZapine ODT 10 MG TAB.RAPDIS 20 MG TRANSLINGU (21:56)
[2021-07-28] MEDS: lisinopriL 5 MG TABLET PO (08:21)
[2021-07-28] MEDS: Apixaban 5 MG TABLET PO ×2 (08:21→21:26)
[2021-07-28] MEDS: Cholecalciferol (Vitamin D3) 10 MCG TABLET PO (08:21)
[2021-07-28] MEDS: Metoprolol Succinate ER 25 MG TAB.ER.24H PO (08:21)
[2021-07-28] MEDS: hydroCHLOROthiazide 25 MG TABLET PO (08:21)
[2021-07-28] MEDS: SITagliptin Phosphate 100 MG TABLET PO (08:21)
[2021-07-28] MEDS: Flecainide Acetate 50 MG TABLET 100 MG PO ×2 (08:22→21:25)
[2021-07-28 09:00] VITALS: BP 136/70; PULSE 68; RESP 16; TEMP 36.6; O2SAT 96
[2021-07-28 18:00] VITALS: BP 132/65; PULSE 85; RESP 16; O2SAT 93
[2021-07-28] MEDS: OLANZapine ODT 10 MG TAB.RAPDIS 20 MG TRANSLINGU (21:26)
--- NOTE | 2021-07-28 23:30 | P.PNPSI_ITS ---
Subjective Subjective Date of Service: 07/28/21 Reason For Visit: Psychosis Interim History: Patient seen in her room. She reported that the voices are gone . She however is noted by the team to continue with hyperreligious and delusional statements and that she says she talks to Cornel. She also told RN she is going to be marrying Cornel and that there will be a wedding. Her mood and affect were blunted. Review of Systems Review of Systems negative except HPI Yes all other systems are reviewed and are negative Mental Status Exam Mental Status Exam Narrative: Pt is alert and oriented; behavior is friendly and cooperative, less guarded and more organized behaviors, however can still be disorganized and intrusive; still intermittently stares blankly without talking but seems less frequently; patient is not in distress; dressed in casual attire with unkempt hair but adequate hygiene; mood is described as good and affect more present, calm and more naturally expressive; eye contact appropriate when talking; Speech is normal rate, volume and prosody and not pressured; no psychomotor agitationt; thought process is goal directed; Thought content is still perseverative on yazidi themes but able to discuss other things for longer period of time and stay pertinent to relevant topics; delusional idea and grandiosity present; denies any SI/HI. AH reportedly diminished; pt still intermittently internally preoccupied but less so; much less thought blocking.? Patients insight and judgment are impaired but have improved. Patient Appearance: Appropriate Patient Orientation: Person Level of Consciousness: Alert Patient Behavior: Wandering, Fatigued, Distractible and Good Eye Contact Mood Description: Flat Affect Description: Flat Patient Cognition Impaired: Yes Ability to Follow Directions: Fair Speech Pattern: Perseverating, Spontaneous Speech, Soft-Spoken, Delayed and Long Pauses Memory Description: Remote Impaired Diagnostics Vital Signs (24Hr): Vital Signs - 24 hr 07/28/21 09:00 07/28/21 18:00 Temperature 98 F Pulse Rate 68 85 Respiratory Rate 16 16 Blood Pressure 136/70 132/65 Pulse Oximetry 96 93 Oxygen Delivery Method Room Air Room Air BMI result Body Mass Index 39.5 Labs Results: 07/15/21 15:12 07/24/21 10:42 Medications Medications Current Medications Acetaminophen (Acetaminophen 325 Mg Tablet) 650 mg PO Q6H PRN PRN Reason: Headache/Pain Mild Scale (1-3) Al Hydroxide/Mg Hydroxide (Magnesium Hydrox/Alum Hydrox 30 Ml Oral.Susp) 30 ml PO Q6H PRN PRN Reason: Heartburn/Nausea Apixaban (Apixaban 5 Mg Tablet) 5 mg PO BID [facility] Last Admin: 07/28/21 21:26 Dose: 5 mg Docusate Sodium (Docusate Sodium 100 Mg Capsule) 100 mg PO BID PRN PRN Reason: Constipation Flecainide Acetate (Flecainide Acetate 50 Mg Tablet) 100 mg PO BID [facility] Last Admin: 07/28/21 21:25 Dose: 100 mg Hydrochlorothiazide (Hydrochlorothiazide 25 Mg Tablet) 25 mg PO DAILY [facility] Last Admin: 07/28/21 08:21 Dose: 25 mg Lisinopril (Lisinopril 5 Mg Tablet) 5 mg PO DAILY [facility]; Protocol Last Admin: 07/28/21 08:21 Dose: 5 mg Magnesium Hydroxide (Milk Of Magnesia 30 Ml Oral.Susp) 30 ml PO DAILY PRN PRN Reason: Constipation Metoprolol Succinate (Metoprolol Succinate Er 25 Mg Tab.Er.24h) 25 mg PO DAILY [facility]; Protocol Last Admin: 07/28/21 08:21 Dose: 25 mg Olanzapine (Olanzapine Odt 10 Mg Tab.Rapdis) 20 mg TRANSLINGU BEDTIME [facility] Last Admin: 07/28/21 21:26 Dose: 20 mg Pharmacy Consult (Consult Rx Perform Med Rec) 1 each MISCELLANE ONCE PRN PRN Reason: Consult order Sitagliptin Phosphate (Sitagliptin Phosphate 100 Mg Tablet) 100 mg PO DAILY [facility] Last Admin: 07/28/21 08:21 Dose: 100 mg Trazodone HCl (Trazodone Hcl 50 Mg Tablet) 50 mg PO BEDTIME PRN PRN Reason: Insomnia Vitamin D (Cholecalciferol (Vitamin D3) 10 Mcg Tablet) 10 mcg PO DAILY [facility] Last Admin: 07/28/21 08:21 Dose: 10 mcg Allergies Allergies Allergy/AdvReac Type Severity Reaction Status Date / Time bee pollen [bee stings] Allergy Swelling Verified 05/10/21 21:25 codeine Allergy Anaphylaxis Verified 05/10/21 21:25 Assessment & Plan Assessment & Plan (1) Bipolar 1 disorder with moderate jarrett: Status: Acute Code(s): F31.12 - Bipolar disorder, current episode manic without psychotic features, moderate Plan Patient is a 70-year-old female with history of hypertension, type 2 diabetes, AFib and with limited psychiatric history, 1st having psychotic symptoms this past February 2021 and then again admitted April on S1, who presents for 2 weeks of worsening psychotic symptoms in the face of going off her Zyprexa and getting a UTI. -patient's current presentation is very similar to her last admission during which time Zyprexa resolved symptoms; patient is currently willing taking Z yprexa. She is also taking antibiotics for UTI which is very likely contributory -currently patient is moderately manic with psychotic symptoms; will continue treatment Formulation: Patient has little to no clinical psychiatric history prior to manic episode this past March 2021 at which time she was successfully treated with Zyprexa. Reportedly patient did well while on Zyprexa however stopped taking it about 2 weeks ago and symptoms returned; patient also had a UTI which is very likely contributory. Collateral obtained from patient's daughter who described what sounds like subclinical hypomanic episodes throughout patient's life that were mild enough not to cause any concern and did not interrupt patient's function, but would help to explain why patient is having her current episode. Possible hx of some depression and other family member with bipolar. Plan: CV Q 15 minute checks 1. Bipolar Disorder (provisional): DC Ativan Increase to Zydis 20 mg q.h.s.; for psychotic symptoms; Leave for now since patient has stabilized in the past on only 10 mg Hypertension: Continue metoprolol succinate XR 50 mg daily RESTARTed chlorthalidone 25 mg tablet daily; BP elevated; since recent LEONARD had held off on lisinopril to monitor BP and bun/cr; Discussed w Dr. Samson Restart Lisinopril 5mg daily (home dose 40 mg tablet daily); monitor BP and titrate as clinically determined; BUN/Cr remain WNL Diabetes: chronic sitagliptin 100 mg tablet (Januvia) daily Afib:chronic flecainide 100 mg tablet b.i.d. apixaban 5 mg tablet (Eliquis) B.i.d. cholecalciferol daily UTI: resolved; completing course of Ceftin LEONARD: resolved -rechecked Bun/cr and remains WNL For day to day events and decision making... Hospital course: 07/18 patient remains religiously preoccupied with some disorganized behaviors, internally preoccupied and with auditory hallucinations. She is also able to be goal oriented in discussions. She says she will continue taking Zyprexa and says she will modify her behaviors so they are not startling to others. pt on 12 . will likely switch to Zydis to ensure adherence 07/19 no change; collateral obtained indicates likely history of hypomanic episodes that were subclinical 07/20 patient remains in religiously preoccupied and with auditory hallucinations. She also intermittently stares off blankly during which time she does not talk or respond. These are patient is only catatonic like symptoms. Consulting Actuary i ncreased Zyprexa as patient remains with AH and is disorganization. However, also decided to add Ativan 1 mg t.i.d. to see if this can be helpful given Catatonic-like symptoms. At this point patient does not have catatonia and her only catatonic like symptom is her momentary periods of disassociation were she is internally preoccupied and staring into space. Otherwise patient moves around, talks, eats, drinks, toilets herself and showers without problem. 07/22/21- Continue plan of care 07/23/21 Added Ativan has not seem to make much difference and will consider discontinuing it. Patient remains without insight and She remains disorganized, intrusive and religiously preoccupied. She admitted that she has tried to get away with not taking her medications so it is unclear if she has been taking her full dose regularly. Will give current medications some more time at current dose. Blood pressure elevated again. Will get more readings but likely restart lisinopril, monitoring bun/cr 07/24 Patient seems to be more stable, less internally preoccupied and though still perseverating on yazidi themes, less intensely and less intrusive to others. She reports auditory hallucinations are gone though she misses. Hopefully this trajectory will continue. 07/25 patient is mildly improved able to maintain a regular conversation for longer period of time without reverting to yazidi themes and pressuring others to say a specific yazidi prayer; however still can stare blankly, have disorganized behaviors and intrusive to others; will increase Zyprexa to 20 mg 07/26 remains mildy improved; trying to understand that auditory hallucinations are part of psychiatric illness and that she has been somewhat out of control during this admission. continue current tx 6/10 though patient has improved, is more clear minded, less thought blocking, less internally preoccupied and with much fewer instances of auditory hallucinations, she is still having delusional and grandiose idea and does not have insight that this is due to her psychiatric illness. 07/28 Continue treatment plan Collateral Obtained: on 07/19 Patient's daughter Amaris visited and told copywriter that upon reflection she thinks her mother has had hypomanic episodes throughout her life, about 4 per year. She says her mother has several hobbies and is actually quite talented at writing children's books, making quilts, painting and making [place] ornamants. However for about 1 to 2 weeks every several months, instead of making her usual 1 quilt, she will make 10 of them, be extra excited about it and describing the details of it to others, unaware that it is excessive and that she is repeating herself. Same with books or paintings were she will be overly productive. Daughter says that this has not interrupt her function in other parts of her life and that her pieces are still excellently done and it has never raised any concerns other than in hindsight and in context of this current manic episode. Lizbet also thinks, but is not sure whether her mother has had bouts of depression throughout her life that have been mild but for which she was taking medication. She says that prior to this first clear manic episode in March 2021, her mother was experiencing several stressors related to family relationships with her other children. Amaris also wonders if her brother is bipolar as he seems to have a clear manic episodes. I spent minutes with the patient and/or on the patient floor today, greater than?50% of which was spent counseling/coordinating care. Reason for contiued inpatient stay Substantial Risk for: inability to function and rapid decompensation
[2021-07-29] MEDS: hydroCHLOROthiazide 25 MG TABLET PO (08:36)
[2021-07-29] MEDS: SITagliptin Phosphate 100 MG TABLET PO (08:36)
[2021-07-29] MEDS: Flecainide Acetate 50 MG TABLET 100 MG PO ×2 (08:36→20:16)
[2021-07-29] MEDS: Apixaban 5 MG TABLET PO ×2 (08:36→20:17)
[2021-07-29] MEDS: Metoprolol Succinate ER 25 MG TAB.ER.24H PO (08:36)
[2021-07-29] MEDS: Cholecalciferol (Vitamin D3) 10 MCG TABLET PO (08:36)
[2021-07-29] MEDS: lisinopriL 5 MG TABLET PO (08:36)
--- NOTE | 2021-07-29 14:07 | P.PNPSI_ITS ---
Subjective Subjective Date of Service: 07/29/21 Reason For Visit: Psychosis Interim History: Patient seen in her room. As this technical writer and editor enters she is sitting very still with her eyes closed and her lunch in front of her. She remains like this. When this technical writer and editor tries to get her attention she slowly turns. When asked, she says I was praying for my food. She was slow to respond. She says she feels very clear in her thinking. She didn't report any unusual thoughts although she told RN y she is marrying Cornel and that the rapture is coming. She reported that the voices are gone and that she feels ready for DC. Her mood and affect were blunted/flat and she appeared internally preoccupied. Review of Systems Review of Systems negative except HPI Yes all other systems are reviewed and are negative Mental Status Exam Mental Status Exam Narrative: Pt is alert and oriented; behavior is friendly and cooperative, less guarded and more organized behaviors, however can still be disorganized and intrusive; still intermittently stares blankly without talking but seems less frequently; patient is not in distress; dressed in casual attire with unkempt hair but adequate hygiene; mood is described as good and affect more present, calm and more naturally expressive; eye contact appropriate when talking; Speech is normal rate, volume and prosody and not pressured; no psychomotor agitationt; thought process is goal directed; Thought content is still perseverative on jehovah's witness themes but able to discuss other things for longer period of time and stay pertinent to relevant topics; delusional idea and grandiosity present; denies any SI/HI. AH reportedly diminished; pt still intermittently internally preoccupied but less so; much less thought blocking.? Patients insight and judgment are impaired but have improved. Patient Appearance: Appropriate Patient Orientation: Person Level of Consciousness: Alert Patient Behavior: Wandering, Fatigued, Distractible and Good Eye Contact Mood Description: Flat Affect Description: Flat Patient Cognition Impaired: Yes Ability to Follow Directions: Fair Speech Pattern: Perseverating, Spontaneous Speech, Soft-Spoken, Delayed and Long Pauses Memory Description: Remote Impaired Delusions: Paranoid Ideation, Grandiose and Bizarre Thought Process: Slowed Thinking Thought Content: positive for Thought Blocking and positive for Slowed Thinking Abnormal Motor Activity Signs and Symptoms: Psychomotor Retardation Judgement: Fair Diagnostics Vital Signs (24Hr): Vital Signs - 24 hr 07/28/21 18:00 Pulse Rate 85 Respiratory Rate 16 Blood Pressure 132/65 Pulse Oximetry 93 Oxygen Delivery Method Room Air BMI result Body Mass Index 39.5 Labs Results: 07/15/21 15:12 07/24/21 10:42 Medications Medications Current Medications Acetaminophen (Acetaminophen 325 Mg Tablet) 650 mg PO Q6H PRN PRN Reason: Headache/Pain Mild Scale (1-3) Al Hydroxide/Mg Hydroxide (Magnesium Hydrox/Alum Hydrox 30 Ml Oral.Susp) 30 ml PO Q6H PRN PRN Reason: Heartburn/Nausea Apixaban (Apixaban 5 Mg Tablet) 5 mg PO BID [facility] Last Admin: 07/29/21 08:36 Dose: 5 mg Docusate Sodium (Docusate Sodium 100 Mg Capsule) 100 mg PO BID PRN PRN Reason: Constipation Flecainide Acetate (Flecainide Acetate 50 Mg Tablet) 100 mg PO BID [facility] Last Admin: 07/29/21 08:36 Dose: 100 mg Hydrochlorothiazide (Hydrochlorothiazide 25 Mg Tablet) 25 mg PO DAILY [facility] Last Admin: 07/29/21 08:36 Dose: 25 mg Lisinopril (Lisinopril 5 Mg Tablet) 5 mg PO DAILY [facility]; Protocol Last Admin: 07/29/21 08:36 Dose: 5 mg Magnesium Hydroxide (Milk Of Magnesia 30 Ml Oral.Susp) 30 ml PO DAILY PRN PRN Reason: Constipation Metoprolol Succinate (Metoprolol Succinate Er 25 Mg Tab.Er.24h) 25 mg PO DAILY [facility]; Protocol Last Admin: 07/29/21 08:36 Dose: 25 mg Olanzapine (Olanzapine Odt 10 Mg Tab.Rapdis) 20 mg TRANSLINGU BEDTIME [facility] Last Admin: 07/28/21 21:26 Dose: 20 mg Pharmacy Consult (Consult Rx Perform Med Rec) 1 each MISCELLANE ONCE PRN PRN Reason: Consult order Sitagliptin Phosphate (Sitagliptin Phosphate 100 Mg Tablet) 100 mg PO DAILY [facility] Last Admin: 07/29/21 08:36 Dose: 100 mg Trazodone HCl (Trazodone Hcl 50 Mg Tablet) 50 mg PO BEDTIME PRN PRN Reason: Insomnia Vitamin D (Cholecalciferol (Vitamin D3) 10 Mcg Tablet) 10 mcg PO DAILY [facility] Last Admin: 07/29/21 08:36 Dose: 10 mcg Allergies Allergies Allergy/AdvReac Type Severity Reaction Status Date / Time bee pollen [bee stings] Allergy Swelling Verified 05/10/21 21:25 codeine Allergy Anaphylaxis Verified 05/10/21 21:25 Assessment & Plan Assessment & Plan (1) Bipolar 1 disorder with moderate jarrett: Status: Acute Code(s): F31.12 - Bipolar disorder, current episode manic without psychotic features, moderate Plan Patient is a 70-year-old female with history of hypertension, type 2 diabetes, AFib and with limited psychiatric history, 1st having psychotic symptoms this past February 2021 and then again admitted April on S1, who presents for 2 weeks of worsening psychotic symptoms in the face of going off her Zyprexa and getting a UTI. -patient's current presentation is very similar to her last admission during which time Zyprexa resolved symptoms; patient is currently willing taking Zyprexa. She is also taking antibiotics for UTI which is very likely contributory -currently patient is moderately manic with psychotic symptoms; will continue treatment Formulation: Patient has little to no clinical psychiatric history prior to manic episode this past March 2021 at which time she was successfully treated with Zyprexa. Reportedly patient did well while on Zyprexa however stopped taking it about 2 weeks ago and symptoms returned; patient also had a UTI which is very likely contributory. Collateral obtained from patient's daughter who described what sounds like subclinical hypomanic episodes throughout patient's life that were mild enough not to cause any concern and did not interrupt patient's function, but would help to explain why patient is having her current episode. Possible hx of some depression and other family member with bipolar. Plan: CV Q 15 minute checks 1. Bipolar Disorder (provisional): DC Ativan Increase to Zydis 20 mg q.h.s.; for psychotic symptoms; Leave for now since patient has stabilized in the past on only 10 mg Hypertension: Continue metoprolol succinate XR 50 mg daily RESTARTed chlorthalidone 25 mg tablet daily; BP elevated; since recent LEONARD had held off on lisinopril to monitor BP and bun/cr; Discussed w Dr. Samson Restart Lisinopril 5mg daily (home dose 40 mg tablet daily); monitor BP and titrate as clinically determined; BUN/Cr remain WNL Diabetes: chronic sitagliptin 100 mg tablet (Januvia) daily Afib:chronic flecainide 100 mg tablet b.i.d. apixaban 5 mg tablet (Eliquis) B.i.d. cholecalciferol daily UTI: resolved; completing course of Ceftin LEONARD: resolved -rechecked Bun/cr and remains WNL For day to day events and decision making... Hospital course: 07/18 patient remains religiously preoccupied with some disorganized behaviors, internally preoccupied and with auditory hallucinations. She is also able to be goal oriented in discussions. She says she will continue taking Zyprexa and says she will modify her behaviors so they are not startling to others. pt on 12 b. will likely switch to Zydis to ensure adherence 07/19 no change; collateral obtained indicates likely history of hypomanic episodes that were subclinical 07/20 patient remains in religiously preoccupied and with auditory hallucinations. She also intermittently stares off blankly during which time she does not talk or respond. These are patient is only catatonic like symptoms. Lumber Grader increased Zyprexa as patient remains with AH and is disorganization. However, also decided to add Ativan 1 mg t.i.d. to see if this can be helpful given Catatonic-like symptoms. At this point patient does not have catatonia and her only catatonic like symptom is her momentary periods of disassociation were she is internally preoccupied and staring into space. Otherwise patient moves around, talks, eats, drinks, toilets herself and showers without problem. 07/22/21- Continue plan of care 07/23/21 Added Ativan has not seem to make much difference and will consider discontinuing it. Patient remains without insight and She remains disorganized, intrusive and religiously preoccupied. She admitted that she has tried to get away with not taking her medications so it is unclear if she has been taking her full dose regularly. Will give current medications some more time at current dose. Blood pressure elevated again. Will get more readings but likely restart lisinopril, monitoring bun/cr 07/24 Patient seems to be more stable, less internally preoccupied and though still perseverating on jehovah's witness themes, less intensely and less intrusive to others. She reports auditory hallucinations are gone though she misses. Hopefully this trajectory will continue. 07/25 patient is mildly improved able to maintain a regular conversation for longer period of time without reverting to jehovah's witness themes and pressuring others to say a specific jehovah's witness prayer; however still can stare blankly, have disorganized behaviors and intrusive to others; will increase Zyprexa to 20 mg 07/26 remains mildy improved; trying to understand that auditory hallucinations are part of psychiatric illness and that she has been somewhat out of control during this admission. continue current tx 07/27 though patient has improved, is more clear minded, less thought blocking, less internally preoccupied and with much fewer instances of auditory hallucinations, she is still having delusional and grandiose idea and does not have insight that this is due to her psychiatric illness. 07/28 Continue treatment plan 07/29 Continue current plan Collateral Obtained: on 07/19 Patient's daughter Amaris visited and told technical writer and editor that upon reflection she thinks her mother has had hypomanic episodes throughout her life, about 4 per year. She says her mother has several hobbies and is actually quite talented at writing children's books, making quilts, painting and making [place] ornamants. However for about 1 to 2 weeks every several months, instead of making her usual 1 quilt, she will make 10 of them, be extra excited about it and describing the details of it to others, unaware that it is excessive and that she is repeating herself. Same with books or paintings were she will be overly productive. Daughter says that this has not interrupt her function in other parts of her life and that her pieces are still excellently done and it has never raised any concerns other than in hindsight and in context of this current manic episode. Lizbet also thinks, but is not sure whether her mother has had bouts of depression throughout her life that have been mild but for which she was taking medication. She says that prior to this first clear manic episode in March 2021, her mother was experiencing several stressors related to family relationships with her other children. Amaris also wonders if her brother is bipolar as he seems to have a clear manic episodes. I spent minutes with the patient and/or on the patient floor today, greater than?50% of which was spent counseling/coordinating care. Reason for contiued inpatient stay Substantial Risk for: harm to others, inability to function and rapid decompensation
[2021-07-29 18:36] VITALS: BP 117/60; PULSE 59; RESP 16; TEMP 35.9; O2SAT 95
[2021-07-29] MEDS: OLANZapine ODT 10 MG TAB.RAPDIS 20 MG TRANSLINGU (20:16)
[2021-07-30] MEDS: hydroCHLOROthiazide 25 MG TABLET PO (08:08)
[2021-07-30] MEDS: Metoprolol Succinate ER 25 MG TAB.ER.24H PO (08:08)
[2021-07-30] MEDS: Cholecalciferol (Vitamin D3) 10 MCG TABLET PO (08:08)
[2021-07-30] MEDS: Flecainide Acetate 50 MG TABLET 100 MG PO ×2 (08:08→20:37)
[2021-07-30] MEDS: Apixaban 5 MG TABLET PO ×2 (08:09→20:36)
[2021-07-30] MEDS: lisinopriL 5 MG TABLET PO (08:09)
[2021-07-30] MEDS: SITagliptin Phosphate 100 MG TABLET PO (08:09)
[2021-07-30 08:26] VITALS: BP 126/73; PULSE 68; RESP 14; TEMP 36.6; O2SAT 94
--- NOTE | 2021-07-30 10:33 | P.PNPSI_ITS ---
Subjective Subjective Date of Service: 07/30/21 Reason For Visit: Psychosis Diagnostics Vital Signs (24Hr): Vital Signs - 24 hr 07/29/21 18:36 07/30/21 08:26 Temperature 96.6 F L 98 F Pulse Rate 59 68 Respiratory Rate 16 14 Blood Pressure 117/60 126/73 Pulse Oximetry 95 94 Oxygen Delivery Method Room Air Room Air BMI result Body Mass Index 39.5 Labs Results: 07/15/21 15:12 07/24/21 10:42 Medications Medications Current Medications Acetaminophen (Acetaminophen 325 Mg Tablet) 650 mg PO Q6H PRN PRN Reason: Headache/Pain Mild Scale (1-3) Al Hydroxide/Mg Hydroxide (Magnesium Hydrox/Alum Hydrox 30 Ml Oral.Susp) 30 ml PO Q6H PRN PRN Reason: Heartburn/Nausea Apixaban (Apixaban 5 Mg Tablet) 5 mg PO BID [facility] Last Admin: 07/30/21 08:09 Dose: 5 mg Docusate Sodium (Docusate Sodium 100 Mg Capsule) 100 mg PO BID PRN PRN Reason: Constipation Flecainide Acetate (Flecainide Acetate 50 Mg Tablet) 100 mg PO BID [facility] Last Admin: 07/30/21 08:08 Dose: 100 mg Hydrochlorothiazide (Hydrochlorothiazide 25 Mg Tablet) 25 mg PO DAILY [facility] Last Admin: 07/30/21 08:08 Dose: 25 mg Lisinopril (Lisinopril 5 Mg Tablet) 5 mg PO DAILY [facility]; Protocol Last Admin: 07/30/21 08:09 Dose: 5 mg Magnesium Hydroxide (Milk Of Magnesia 30 Ml Oral.Susp) 30 ml PO DAILY PRN PRN Reason: Constipation Metoprolol Succinate (Metoprolol Succinate Er 25 Mg Tab.Er.24h) 25 mg PO DAILY [facility]; Protocol Last Admin: 07/30/21 08:08 Dose: 25 mg Olanzapine (Olanzapine Odt 10 Mg Tab.Rapdis) 20 mg TRANSLINGU BEDTIME [facility] Last Admin: 07/29/21 20:16 Dose: 20 mg Pharmacy Consult (Consult Rx Perform Med Rec) 1 each MISCELLANE ONCE PRN PRN Reason: Consult order Sitagliptin Phosphate (Sitagliptin Phosphate 100 Mg Tablet) 100 mg PO DAILY [facility] Last Admin: 07/30/21 08:09 Dose: 100 mg Trazodone HCl (Trazodone Hcl 50 Mg Tablet) 50 mg PO BEDTIME PRN PRN Reason: Insomnia Vitamin D (Cholecalciferol (Vitamin D3) 10 Mcg Tablet) 10 mcg PO DAILY [facility] Last Admin: 07/30/21 08:08 Dose: 10 mcg Allergies Allergies Allergy/AdvReac Type Severity Reaction Status Date / Time bee pollen [bee stings] Allergy Swelling Verified 05/10/21 21:25 codeine Allergy Anaphylaxis Verified 05/10/21 21:25 Assessment & Plan Assessment & Plan (1) Bipolar 1 disorder with moderate jarrett: Status: Acute Code(s): F31.12 - Bipolar disorder, current episode manic without psychotic features, moderate Plan Patient is a 70-year-old female with history of hypertension, type 2 diabetes, AFib and with limited psychiatric history, 1st having psychotic symptoms this past February 2021 and then again admitted April on , who presents for 2 weeks of worsening psychotic symptoms in the face of going off her Zyprexa and getting a UTI. -patient's current presentation is very similar to her last admission during which time Zyprexa resolved symptoms; patient is currently willing taking Zyprexa. She is also taking antibiotics for UTI which is very likely contributory -currently patient is moderately manic with psychotic symptoms; will continue treatment Formulation: Patient has little to no clinical psychiatric history prior to manic episode this past February/March 2021 at which time she was successfully treated with Zyprexa. Reportedly patient did well while on Zyprexa however stopped taking it about 2 weeks ago and symptoms returned; patient also had a UTI which is very likely contributory. Collateral obtained from patient's daughter who described what sounds like subclinical hypomanic episodes throughout patient's life that were mild enough not to cause any concern and did not interrupt patient's function, but would help to explain why patient is having her current episode. Possible hx of some depression and other family member with bipolar. Plan: CV Q 15 minute checks 1. Bipolar Disorder (provisional): DC Ativan Increase to Zydis 20 mg q.h.s.; for psychotic symptoms; Leave for now since patient has stabilized in the past on only 10 mg Hypertension: Continue metoprolol succinate XR 50 mg daily RESTARTed chlorthalidone 25 mg tablet daily; BP elevated; since recent LEONARD had held off on lisinopril to monitor BP and bun/cr; Discussed w Dr. Samson Restart Lisinopril 5mg daily (home dose 40 mg tablet daily); monitor BP and titrate as clinically determined; BUN/Cr remain WNL Diabetes: chronic sitagliptin 100 mg tablet (Januvia) daily Afib:chronic flecainide 100 mg tablet b.i.d. apixaban 5 mg tablet (Eliquis) B.i.d. cholecalciferol daily UTI: resolved; completing course of Ceftin LEONARD: resolved -rechecked Bun/cr and remains WNL For day to day events and decision making... Hospital course: 07/18 patient remains religiously preoccupied with some disorganized behaviors, internally preoccupied and with auditory hallucinations. She is also able to be goal oriented in discussions. She says she will continue taking Zyprexa and says she will modify her behaviors so they are not startling to others. pt on 12 . will likely switch to Zydis to ensure adherence 07/19 no change; collateral obtained indicates likely history of hypomanic episodes that were subclinical 07/20 patient remains in religiously preoccupied and with auditory hallucinations. She also intermittently stares off blankly during which time she does not talk or respond. These are patient is only catatonic like symptoms. Marine Electrician Apprentice increased Zyprexa as patient remains with AH and is disorganization. However, also decided to add Ativan 1 mg t.i.d. to see if this can be helpful given Catatonic-like symptoms. At this point patient does not have catatonia and her only catatonic like symptom is her momentary periods of disassociation were she is internally preoccupied and staring into space. Otherwise patient moves around, talks, eats, drinks, toilets herself and showers without problem. 07/22/21- Continue plan of care 07/23/21 Added Ativan has not seem to make much difference and will consider discontinuing it. Patient remains without insight and She remains disorganized, intrusive and religiously preoccupied. She admitted that she has tried to get away with not taking her medications so it is unclear if she has been taking her full dose regularly. Will give current medications some more time at current dose. Blood pressure elevated again. Will get more readings but likely restart lisinopril, monitoring bun/cr 07/24 Patient seems to be more stable, less internally preoccupied and though still perseverating on jew themes, less intensely and less intrusive to others. She reports auditory hallucinations are gone though she misses. Hopefully this trajectory will continue. 07/25 patient is mildly improved able to maintain a regular conversation for longer period of time without reverting to jew themes and pressuring other s to say a specific jew prayer; however still can stare blankly, have disorganized behaviors and intrusive to others; will increase Zyprexa to 20 mg 07/26 remains mildy improved; trying to understand that auditory hallucinations are part of psychiatric illness and that she has been somewhat out of control during this admission. continue current tx 07/27 though patient has improved, is more clear minded, less thought blocking, less internally preoccupied and with much fewer instances of auditory hallucinations, she is still having delusional and grandiose idea and does not have insight that this is due to her psychiatric illness. 07/28 Continue treatment plan 07/29 Continue current plan Collateral Obtained: on 07/19 Patient's daughter Amaris visited and told development writer that upon reflection she thinks her mother has had hypomanic episodes throughout her life, about 4 per year. She says her mother has several hobbies and is actually quite talented at writing children's books, making quilts, painting and making Deon ornamants. However for about 1 to 2 weeks every several months, instead of making her usual 1 quilt, she will make 10 of them, be extra excited about it and describing the details of it to others, unaware that it is excessive and that she is repeating herself. Same with books or paintings were she will be overly productive. Daughter says that this has not interrupt her function in other parts of her life and that her pieces are still excellently done and it has never raised any concerns other than in hindsight and in context of this current manic episode. Lizbet also thinks, but is not sure whether her mother has had bouts of depression throughout her life that have been mild but for which she was taking medication. She says that prior to this first clear manic episode in March 2021, her mother was experiencing several stressors related to family relationships with her other children. Amaris also wonders if her brother is bipolar as he seems to have a clear manic episodes. I spent minutes with the patient and/or on the patient floor today, greater than?50% of which was spent counseling/coordinating care.
--- NOTE | 2021-07-30 13:50 | PC.NURSE ---
Pt. was transferred from [address] [facility]. She arrived on the [facility] at approximately 1115 on this day. She arrived in good spirits and joined her peers without apparent difficulty. She arrived in a clean outfit and shortly afterwards ate her lunch. Pt. expressed being grateful to be on this unit, as she is with her contemporaries. Pt. is calm and cooperative. She denies any questions/concerns currently.
--- NOTE | 2021-07-30 14:57 | HO.PSYCHPN ---
Subjective Subjective Date of Service: 07/30/21 Reason For Visit: Psychosis Subjective Notes: Conditional Voluntary Interim History: The patient reported feeling OK,no side effects with Zyprexa. On iterview, she reported that she is feeling better since Zyprexa was started, she denied side effects Mental Status Exam Mental Status Exam Patient Appearance: Well Grooomed Patient Orientation: Person Level of Consciousness: Awake Patient Behavior: Appropriate Mood Description: Calm Affect Description: Constricted Ability to Follow Directions: Good Speech Pattern: Clear Hallucinations: None Delusions: Not Present Thought Process: Linear Thought Content: positive for Intact Judgement: Fair Diagnostics Vital Signs (24Hr): Vital Signs - 24 hr 07/29/21 18:36 07/30/21 08:26 Temperature 96.6 F L 98 F Pulse Rate 59 68 Respiratory Rate 16 14 Blood Pressure 117/60 126/73 Pulse Oximetry 95 94 Oxygen Delivery Method Room Air Room Air BMI result Body Mass Index 39.5 Labs Results: 07/15/21 15:12 07/24/21 10:42 Medications Medications Current Medications Acetaminophen (Acetaminophen 325 Mg Tablet) 650 mg PO Q6H PRN PRN Reason: Headache/Pain Mild Scale (1-3) Al Hydroxide/Mg Hydroxide (Magnesium Hydrox/Alum Hydrox 30 Ml Oral.Susp) 30 ml PO Q6H PRN PRN Reason: Heartburn/Nausea Apixaban (Apixaban 5 Mg Tablet) 5 mg PO BID [facility] Last Admin: 07/30/21 08:09 Dose: 5 mg Docusate Sodium (Docusate Sodium 100 Mg Capsule) 100 mg PO BID PRN PRN Reason: Constipation Flecainide Acetate (Flecainide Acetate 50 Mg Tablet) 100 mg PO BID [facility] Last Admin: 07/30/21 08:08 Dose: 100 mg Hydrochlorothiazide (Hydrochlorothiazide 25 Mg Tablet) 25 mg PO DAILY [facility] Last Admin: 07/30/21 08:08 Dose: 25 mg Lisinopril (Lisinopril 5 Mg Tablet) 5 mg PO DAILY [facility]; Protocol Last Admin: 07/30/21 08:09 Dose: 5 mg Magnesium Hydroxide (Milk Of Magnesia 30 Ml Oral.Susp) 30 ml PO DAILY PRN PRN Reason: Constipation Metoprolol Succinate (Metoprolol Succinate Er 25 Mg Tab.Er.24h) 25 mg PO DAILY [facility]; Protocol Last Admin: 07/30/21 08:08 Dose: 25 mg Olanzapine (Olanzapine Odt 10 Mg Tab.Rapdis) 20 mg TRANSLINGU BEDTIME [facility] Last Admin: 07/29/21 20:16 Dose: 20 mg Pharmacy Consult (Consult Rx Perform Med Rec) 1 each MISCELLANE ONCE PRN PRN Reason: Consult order Sitagliptin Phosphate (Sitagliptin Phosphate 100 Mg Tablet) 100 mg PO DAILY [facility] Last Admin: 07/30/21 08:09 Dose: 100 mg Trazodone HCl (Trazodone Hcl 50 Mg Tablet) 50 mg PO BEDTIME PRN PRN Reason: Insomnia Vitamin D (Cholecalciferol (Vitamin D3) 10 Mcg Tablet) 10 mcg PO DAILY [facility] Last Admin: 07/30/21 08:08 Dose: 10 mcg Allergies Allergies Allergy/AdvReac Type Severity Reaction Status Date / Time bee pollen [bee stings] Allergy Swelling Verified 05/10/21 21:25 codeine Allergy Anaphylaxis Verified 05/10/21 21:25 Assessment & Plan Assessment & Plan (1) Bipolar 1 disorder with moderate jarrett: Status: Acute Code(s): F31.12 - Bipolar disorder, current episode manic without psychotic features, moderate Plan The patient is a 70-year-old female with a long history of dementia with psychotic features who was in this facility a few months ago that stabilized on Zyprexa. The patient stopped taking her Zyprexa and she decompensated. At this moment, her psychotic symptoms have improved but still she has residual hyper religiosity. Plan 1. Continue Zyprexa 20 mg p.o. q.h.s. as 2. Gather collateral information I spent __20____ minutes with the patient and/or on the patient floor today, greater than?50% of which was spent counseling/coordinating care. Reason for contiued inpatient stay Substantial Risk for: inability to function, rapid decompensation and med/psych decompensation
[2021-07-30 18:00] VITALS: BP 160/70; PULSE 64; TEMP 36.2; O2SAT 97
[2021-07-30] MEDS: OLANZapine ODT 10 MG TAB.RAPDIS 20 MG TRANSLINGU (20:37)
[2021-07-30] MEDS: traZODone HCL 50 MG TABLET PO (23:55)
[2021-07-31 07:35] VITALS: BP 139/61; PULSE 63; RESP 16; TEMP 36.8; O2SAT 94
[2021-07-31] MEDS: lisinopriL 5 MG TABLET PO (08:07)
[2021-07-31] MEDS: Cholecalciferol (Vitamin D3) 10 MCG TABLET PO (08:08)
[2021-07-31] MEDS: Apixaban 5 MG TABLET PO ×2 (08:08→20:25)
[2021-07-31] MEDS: Flecainide Acetate 50 MG TABLET 100 MG PO ×2 (08:08→20:25)
[2021-07-31] MEDS: Metoprolol Succinate ER 25 MG TAB.ER.24H PO (08:08)
[2021-07-31] MEDS: hydroCHLOROthiazide 25 MG TABLET PO (08:08)
[2021-07-31] MEDS: SITagliptin Phosphate 100 MG TABLET PO (08:08)
--- NOTE | 2021-07-31 16:00 | HO.PSYCHPN ---
Subjective Subjective Date of Service: 07/31/21 Reason For Visit: Psychosis Subjective Notes: Conditional Voluntary Interim History: The nursing staff reported the patient has been religiously preoccupied but redirectable. She denies active auditory hallucinations. On interview the patient denies new symptoms she is pleasant and easily redirectable. Mental Status Exam Mental Status Exam Patient Appearance: Well Grooomed Patient Orientation: Person Level of Consciousness: Awake Patient Behavior: Cooperative Mood Description: Withdrawn Affect Description: Constricted Patient Cognition Impaired: No Ability to Follow Directions: Good Speech Pattern: Clear Hallucinations: None Delusions: Not Present Thought Process: Distracted Thought Content: positive for [place], positive for Obsessional Thoughts and positive for Poverty of Content Judgement: Fair Diagnostics Vital Signs (24Hr): Vital Signs - 24 hr 07/30/21 18:00 07/31/21 07:35 Temperature 97.2 F 98.2 F Pulse Rate 64 63 Respiratory Rate 16 Blood Pressure 160/70 H 139/61 Pulse Oximetry 97 94 Oxygen Delivery Method Room Air Room Air BMI result Body Mass Index 39.5 Labs Results: 07/15/21 15:12 07/24/21 10:42 Medications Medications Current Medications Acetaminophen (Acetaminophen 325 Mg Tablet) 650 mg PO Q6H PRN PRN Reason: Headache/Pain Mild Scale (1-3) Al Hydroxide/Mg Hydroxide (Magnesium Hydrox/Alum Hydrox 30 Ml Oral.Susp) 30 ml PO Q6H PRN PRN Reason: Heartburn/Nausea Apixaban (Apixaban 5 Mg Tablet) 5 mg PO BID [facility] Last Admin: 07/31/21 08:08 Dose: 5 mg Docusate Sodium (Docusate Sodium 100 Mg Capsule) 100 mg PO BID PRN PRN Reason: Constipation Flecainide Acetate (Flecainide Acetate 50 Mg Tablet) 100 mg PO BID [facility] Last Admin: 07/31/21 08:08 Dose: 100 mg Hydrochlorothiazide (Hydrochlorothiazide 25 Mg Tablet) 25 mg PO DAILY [facility] Last Admin: 07/31/21 08:08 Dose: 25 mg Lisinopril (Lisinopril 5 Mg Tablet) 5 mg PO DAILY [facility]; Protocol Last Admin: 07/31/21 08:07 Dose: 5 mg Magnesium Hydroxide (Milk Of Magnesia 30 Ml Oral.Susp) 30 ml PO DAILY PRN PRN Reason: Constipation Metoprolol Succinate (Metoprolol Succinate Er 25 Mg Tab.Er.24h) 25 mg PO DAILY [facility]; Protocol Last Admin: 07/31/21 08:08 Dose: 25 mg Olanzapine (Olanzapine Odt 10 Mg Tab.Rapdis) 20 mg TRANSLINGU BEDTIME [facility] Last Admin: 07/30/21 20:37 Dose: 20 mg Pharmacy Consult (Consult Rx Perform Med Rec) 1 each MISCELLANE ONCE PRN PRN Reason: Consult order Sitagliptin Phosphate (Sitagliptin Phosphate 100 Mg Tablet) 100 mg PO DAILY [facility] Last Admin: 07/31/21 08:08 Dose: 100 mg Trazodone HCl (Trazodone Hcl 50 Mg Tablet) 50 mg PO BEDTIME PRN PRN Reason: Insomnia Last Admin: 07/30/21 23:55 Dose: 50 mg Vitamin D (Cholecalciferol (Vitamin D3) 10 Mcg Tablet) 10 mcg PO DAILY [facility] Last Admin: 07/31/21 08:08 Dose: 10 mcg Allergies Allergies Allergy/AdvReac Type Severity Reaction Status Date / Time bee pollen [bee stings] Allergy Swelling Verified 05/10/21 21:25 codeine Allergy Anaphylaxis Verified 05/10/21 21:25 Assessment & Plan Assessment & Plan (1) Bipolar 1 disorder with moderate jarrett: Status: Acute Code(s): F31.12 - Bipolar disorder, current episode manic without psychotic features, moderate Plan The patient is a 70-year-old female with a long history of dementia with psychotic features who was in this facility a few months ago that stabilized on Zyprexa. The patient stopped taking her Zyprexa and she decompensated. At this moment, her psychotic symptoms have improved but still she has residual hyper religiosity. Plan 1. Continue Zyprexa 20 mg p.o. q.h.s. as 2. Gather collateral information I spent __20____ minutes with the patient and/or on the patient floor today, greater than?50% of which was spent counseling/coordinating care. Reason for contiued inpatient stay Substantial Risk for: inability to function, rapid decompensation and med/psych decompensation
[2021-07-31 20:05] VITALS: BP 128/60; PULSE 68; RESP 17; TEMP 36.4; O2SAT 95
[2021-07-31] MEDS: OLANZapine ODT 10 MG TAB.RAPDIS 20 MG TRANSLINGU (20:25)
[2021-08-01 08:38] VITALS: BP 112/55; PULSE 61; RESP 17; TEMP 36; O2SAT 99
[2021-08-01] MEDS: lisinopriL 5 MG TABLET PO (08:53)
[2021-08-01] MEDS: hydroCHLOROthiazide 25 MG TABLET PO (08:54)
[2021-08-01] MEDS: Metoprolol Succinate ER 25 MG TAB.ER.24H PO (08:54)
[2021-08-01] MEDS: Cholecalciferol (Vitamin D3) 10 MCG TABLET PO (08:54)
[2021-08-01] MEDS: Flecainide Acetate 50 MG TABLET 100 MG PO ×2 (08:54→21:17)
[2021-08-01] MEDS: SITagliptin Phosphate 100 MG TABLET PO (08:54)
[2021-08-01] MEDS: Apixaban 5 MG TABLET PO ×2 (08:54→21:17)
[2021-08-01] MEDS: Milk of Magnesia 30 ML ORAL.SUSP PO (10:09)
--- NOTE | 2021-08-01 16:31 | HO.PSYCHPN ---
Subjective Subjective Date of Service: 08/01/21 Reason For Visit: Psychosis Subjective Notes: Conditional Voluntary Interim History: the nursing staff reported the patient has being compliant with treatment. She remains religiously preoccupied but redirectable. On interview the patient denies new symptoms she denies side effects with Zyprexa. Mental Status Exam Mental Status Exam Patient Appearance: Well Grooomed Patient Orientation: Person and Situation Level of Consciousness: Awake Patient Behavior: Cooperative Mood Description: Suspicious Affect Description: Constricted Patient Cognition Impaired: No Ability to Follow Directions: Good Speech Pattern: Clear Hallucinations: None Delusions: Not Present Thought Process: Linear Thought Content: positive for Circumstantial Judgement: Fair Diagnostics Vital Signs (24Hr): Vital Signs - 24 hr 07/31/21 20:05 08/01/21 08:38 Temperature 97.5 F 96.8 F Pulse Rate 68 61 Respiratory Rate 17 17 Blood Pressure 128/60 112/55 L Pulse Oximetry 95 99 Oxygen Delivery Method Room Air Room Air BMI result Body Mass Index 39.5 Labs Results: 07/15/21 15:12 07/24/21 10:42 Medications Medications Current Medications Acetaminophen (Acetaminophen 325 Mg Tablet) 650 mg PO Q6H PRN PRN Reason: Headache/Pain Mild Scale (1-3) Al Hydroxide/Mg Hydroxide (Magnesium Hydrox/Alum Hydrox 30 Ml Oral.Susp) 30 ml PO Q6H PRN PRN Reason: Heartburn/Nausea Apixaban (Apixaban 5 Mg Tablet) 5 mg PO BID [facility] Last Admin: 08/01/21 08:54 Dose: 5 mg Docusate Sodium (Docusate Sodium 100 Mg Capsule) 100 mg PO BID PRN PRN Reason: Constipation Flecainide Acetate (Flecainide Acetate 50 Mg Tablet) 100 mg PO BID [facility] Last Admin: 08/01/21 08:54 Dose: 100 mg Hydrochlorothiazide (Hydrochlorothiazide 25 Mg Tablet) 25 mg PO DAILY [facility] Last Admin: 08/01/21 08:54 Dose: 25 mg Lisinopril (Lisinopril 5 Mg Tablet) 5 mg PO DAILY [facility]; Protocol Last Admin: 08/01/21 08:53 Dose: 5 mg Magnesium Hydroxide (Milk Of Magnesia 30 Ml Oral.Susp) 30 ml PO DAILY PRN PRN Reason: Constipation Last Admin: 08/01/21 10:09 Dose: 30 ml Metoprolol Succinate (Metoprolol Succinate Er 25 Mg Tab.Er.24h) 25 mg PO DAILY [facility]; Protocol Last Admin: 08/01/21 08:54 Dose: 25 mg Olanzapine (Olanzapine Odt 10 Mg Tab.Rapdis) 20 mg TRANSLINGU BEDTIME [facility] Last Admin: 07/31/21 20:25 Dose: 20 mg Pharmacy Consult (Consult Rx Perform Med Rec) 1 each MISCELLANE ONCE PRN PRN Reason: Consult order Sitagliptin Phosphate (Sitagliptin Phosphate 100 Mg Tablet) 100 mg PO DAILY [facility] Last Admin: 08/01/21 08:54 Dose: 100 mg Trazodone HCl (Trazodone Hcl 50 Mg Tablet) 50 mg PO BEDTIME PRN PRN Reason: Insomnia Last Admin: 07/30/21 23:55 Dose: 50 mg Vitamin D (Cholecalciferol (Vitamin D3) 10 Mcg Tablet) 10 mcg PO DAILY [facility] Last Admin: 08/01/21 08:54 Dose: 10 mcg Allergies Allergies Allergy/AdvReac Type Severity Reaction Status Date / Time bee pollen [bee stings] Allergy Swelling Verified 05/10/21 21:25 codeine Allergy Anaphylaxis Verified 05/10/21 21:25 Assessment & Plan Assessment & Plan (1) Bipolar 1 disorder with moderate jarrett: Status: Acute Code(s): F31.12 - Bipolar disorder, current episode manic without psychotic features, moderate Plan The patient is a 70-year-old female with a long history of dementia with psychotic features who was in this facility a few months ago that stabilized on Zyprexa. The patient stopped taking her Zyprexa and she decompensated. At this moment, her psychotic symptoms have improved but still she has residual hyper religiosity. Plan 1. Continue Zyprexa 20 mg p.o. q.h.s. as 2. Gather collateral information 3. Possible discharge by the end of the week. I spent ____20__ minutes with the patient and/or on the patient floor today, greater than?50% of which was spent counseling/coordinating care. Reason for contiued inpatient stay Substantial Risk for: inability to function, rapid decompensation and med/psych decompensation
[2021-08-01 21:05] VITALS: BP 153/69; PULSE 64; RESP 17; TEMP 36.1; O2SAT 97
[2021-08-01] MEDS: OLANZapine ODT 10 MG TAB.RAPDIS 20 MG TRANSLINGU (21:16)
[2021-08-01] MEDS: traZODone HCL 50 MG TABLET PO (23:38)
[2021-08-02 07:35] VITALS: BP 127/61; PULSE 60; RESP 14; TEMP 36.2; O2SAT 97
[2021-08-02] MEDS: lisinopriL 5 MG TABLET PO (09:13)
[2021-08-02] MEDS: Cholecalciferol (Vitamin D3) 10 MCG TABLET PO (09:13)
[2021-08-02] MEDS: Metoprolol Succinate ER 25 MG TAB.ER.24H PO (09:13)
[2021-08-02] MEDS: Apixaban 5 MG TABLET PO ×2 (09:13→21:33)
[2021-08-02] MEDS: SITagliptin Phosphate 100 MG TABLET PO (09:13)
[2021-08-02] MEDS: Flecainide Acetate 50 MG TABLET 100 MG PO (09:13)
[2021-08-02] MEDS: hydroCHLOROthiazide 25 MG TABLET PO (09:13)
--- NOTE | 2021-08-02 15:15 | HO.PSYCHPN ---
Subjective Subjective Date of Service: 08/02/21 Reason For Visit: Psychosis Subjective Notes: Conditional Voluntary Interim History: The nursing staff reported the patient has been religiously preoccupied. Her came to the family meeting reported the patient remains delusional even though that she denies hearing auditory hallucinations. During the family meeting her reported that the patient likes her auditory hallucinations and she is not fully honest with us. On interview the patient denies auditory hallucinations. We discussed risks, benefits, side-effects and alternatives and she agreed to add a low dose of Depakote to target impulsivity. We are thinking of discharge early next week. Mental Status Exam Mental Status Exam Patient Appearance: Well Grooomed Patient Orientation: Person and Situation Level of Consciousness: Awake Patient Behavior: Guarded Mood Description: Constricted Affect Description: Labile Ability to Follow Directions: Good Speech Pattern: Clear Hallucinations: Auditory Delusions: Paranoid Ideation Thought Process: Illogical Thought Content: positive for [place] and positive for Perseveration Judgement: Fair Diagnostics Vital Signs (24Hr): Vital Signs - 24 hr 08/01/21 21:05 08/02/21 07:35 Temperature 96.9 F 97.1 F Pulse Rate 64 60 Respiratory Rate 17 14 Blood Pressure 153/69 H 127/61 Pulse Oximetry 97 97 Oxygen Delivery Method Room Air Room Air BMI result Body Mass Index 39.5 Labs Results: 07/15/21 15:12 07/24/21 10:42 Medications Medications Current Medications Acetaminophen (Acetaminophen 325 Mg Tablet) 650 mg PO Q6H PRN PRN Reason: Headache/Pain Mild Scale (1-3) Al Hydroxide/Mg Hydroxide (Magnesium Hydrox/Alum Hydrox 30 Ml Oral.Susp) 30 ml PO Q6H PRN PRN Reason: Heartburn/Nausea Apixaban (Apixaban 5 Mg Tablet) 5 mg PO BID [facility] Last Admin: 08/02/21 09:13 Dose: 5 mg Docusate Sodium (Docusate Sodium 100 Mg Capsule) 100 mg PO BID PRN PRN Reason: Constipation Flecainide Acetate (Flecainide Acetate 50 Mg Tablet) 100 mg PO BID [facility] Last Admin: 08/02/21 09:13 Dose: 100 mg Hydrochlorothiazide (Hydrochlorothiazide 25 Mg Tablet) 25 mg PO DAILY [facility] Last Admin: 08/02/21 09:13 Dose: 25 mg Lisinopril (Lisinopril 5 Mg Tablet) 5 mg PO DAILY [facility]; Protocol Last Admin: 08/02/21 09:13 Dose: 5 mg Magnesium Hydroxide (Milk Of Magnesia 30 Ml Oral.Susp) 30 ml PO DAILY PRN PRN Reason: Constipation Last Admin: 08/01/21 10:09 Dose: 30 ml Metoprolol Succinate (Metoprolol Succinate Er 25 Mg Tab.Er.24h) 25 mg PO DAILY [facility]; Protocol Last Admin: 08/02/21 09:13 Dose: 25 mg Olanzapine (Olanzapine Odt 10 Mg Tab.Rapdis) 20 mg TRANSLINGU BEDTIME [facility] Last Admin: 08/01/21 21:16 Dose: 20 mg Pharmacy Consult (Consult Rx Perform Med Rec) 1 each MISCELLANE ONCE PRN PRN Reason: Consult order Sitagliptin Phosphate (Sitagliptin Phosphate 100 Mg Tablet) 100 mg PO DAILY [facility] Last Admin: 08/02/21 09:13 Dose: 100 mg Trazodone HCl (Trazodone Hcl 50 Mg Tablet) 50 mg PO BEDTIME PRN PRN Reason: Insomnia Last Admin: 08/01/21 23:38 Dose: 50 mg Vitamin D (Cholecalciferol (Vitamin D3) 10 Mcg Tablet) 10 mcg PO DAILY [facility] Last Admin: 08/02/21 09:13 Dose: 10 mcg Allergies Allergies Allergy/AdvReac Type Severity Reaction Status Date / Time bee pollen [bee stings] Allergy Swelling Verified 05/10/21 21:25 codeine Allergy Anaphylaxis Verified 05/10/21 21:25 Assessment & Plan Assessment & Plan (1) Bipolar 1 disorder with moderate jarrett: Status: Acute Code(s): F31.12 - Bipolar disorder, current episode manic without psychotic features, moderate Plan The patient is a 70-year-old female with a long history of dementia with psychotic features who was in this facility a few months ago that stabilized on Zyprexa. The patient stopped taking her Zyprexa and she decompensated. At this moment, her psychotic symptoms have improved but still she has residual hyper religiosity. Plan 1. Continue Zyprexa 20 mg p.o. q.h.s. as 2. Gather collateral information 3. Possible discharge Early next week. 4. Start Depakote 125 mg p.o. t.i.d. to target impulsivity I spent __20____ minutes with the patient and/or on the patient floor today, greater than?50% of which was spent counseling/coordinating care. Reason for contiued inpatient stay Substantial Risk for: inability to function, rapid decompensation and med/psych decompensation
[2021-08-02 18:00] VITALS: BP 137/64; PULSE 62; RESP 18; TEMP 36.4; O2SAT 96
[2021-08-02] MEDS: Divalproex Sodium 250 MG TABLET.DR 125 MG PO (21:33)
[2021-08-02] MEDS: OLANZapine ODT 10 MG TAB.RAPDIS 20 MG TRANSLINGU (21:34)
[2021-08-02 22:48] LABS: COVID-19 Test Negative (Negative)
[2021-08-03 07:20] VITALS: BP 113/54; PULSE 53; RESP 16; TEMP 36.1; O2SAT 93
[2021-08-03] MEDS: hydroCHLOROthiazide 25 MG TABLET PO (09:40)
[2021-08-03] MEDS: SITagliptin Phosphate 100 MG TABLET PO (09:41)
[2021-08-03] MEDS: Divalproex Sodium 250 MG TABLET.DR 125 MG PO ×3 (09:41→20:50)
[2021-08-03] MEDS: Apixaban 5 MG TABLET PO ×2 (09:42→20:50)
[2021-08-03] MEDS: Flecainide Acetate 50 MG TABLET 100 MG PO ×2 (09:42→20:50)
[2021-08-03] MEDS: Cholecalciferol (Vitamin D3) 10 MCG TABLET PO (09:42)
[2021-08-03] MEDS: Metoprolol Succinate ER 25 MG TAB.ER.24H PO (09:42)
[2021-08-03] MEDS: lisinopriL 5 MG TABLET PO (09:44)
--- NOTE | 2021-08-03 12:56 | HO.PSYCHPN ---
Subjective Subjective Date of Service: 08/03/21 Reason For Visit: Psychosis Subjective Notes: Conditional Voluntary Interim History: The nursing staff reported the patient has been seen responding to internal stimuli in the afternoon. She has been praying and she showed flat affect. She slept well. Yesterday the staff reported that the patient was having runny nose and she was tested COVID and it came back negative. On interview the patient denies new symptoms she states that she is doing fine Mental Status Exam Mental Status Exam Patient Appearance: Appropriate Patient Orientation: Person and Situation Level of Consciousness: Awake Patient Behavior: Cooperative Mood Description: Withdrawn Affect Description: Withdrawn and Labile Patient Cognition Impaired: Yes Ability to Follow Directions: Fair Speech Pattern: Clear Hallucinations: Auditory Delusions: Paranoid Ideation Thought Process: Distracted and Evasive Thought Content: positive for Obsessional Thoughts, positive for Circumstantial and positive for Poverty of Content Judgement: Fair Diagnostics Vital Signs (24Hr): Vital Signs - 24 hr 08/02/21 18:00 08/03/21 07:20 Temperature 97.5 F 96.9 F Pulse Rate 62 53 Respiratory Rate 18 16 Blood Pressure 137/64 113/54 L Pulse Oximetry 96 93 Oxygen Delivery Method Room Air Room Air BMI result Body Mass Index 39.5 Labs Results: 07/15/21 15:12 07/24/21 10:42 Labs: Laboratory Results - last 48 hr 08/02/21 22:20 COVID-19 ([facility]) Negative COVID-19 Clin Com See Note Medications Medications Current Medications Acetaminophen (Acetaminophen 325 Mg Tablet) 650 mg PO Q6H PRN PRN Reason: Headache/Pain Mild Scale (1-3) Al Hydroxide/Mg Hydroxide (Magnesium Hydrox/Alum Hydrox 30 Ml Oral.Susp) 30 ml PO Q6H PRN PRN Reason: Heartburn/Nausea Apixaban (Apixaban 5 Mg Tablet) 5 mg PO BID [facility] Last Admin: 08/03/21 09:42 Dose: 5 mg Divalproex Sodium (Divalproex Sodium 250 Mg Tablet.Dr) 125 mg PO TID [facility] Last Admin: 08/03/21 09:41 Dose: 125 mg Docusate Sodium (Docusate Sodium 100 Mg Capsule) 100 mg PO BID PRN PRN Reason: Constipation Flecainide Acetate (Flecainide Acetate 50 Mg Tablet) 100 mg PO BID [facility] Last Admin: 08/03/21 09:42 Dose: 100 mg Guaifenesin/Dextromethorphan (Guaifenesin Dm 100/10/5 Ml 5 Ml Syrup) 5 ml PO Q4H PRN PRN Reason: cough Hydrochlorothiazide (Hydrochlorothiazide 25 Mg Tablet) 25 mg PO DAILY [facility] Last Admin: 08/03/21 09:40 Dose: 25 mg Lisinopril (Lisinopril 5 Mg Tablet) 5 mg PO DAILY [facility]; Protocol Last Admin: 08/03/21 09:44 Dose: 5 mg Magnesium Hydroxide (Milk Of Magnesia 30 Ml Oral.Susp) 30 ml PO DAILY PRN PRN Reason: Constipation Last Admin: 08/01/21 10:09 Dose: 30 ml Metoprolol Succinate (Metoprolol Succinate Er 25 Mg Tab.Er.24h) 25 mg PO DAILY [facility]; Protocol Last Admin: 08/03/21 09:42 Dose: 25 mg Olanzapine (Olanzapine Odt 10 Mg Tab.Rapdis) 20 mg TRANSLINGU BEDTIME [facility] Last Admin: 08/02/21 21:34 Dose: 20 mg Pharmacy Consult (Consult Rx Perform Med Rec) 1 each MISCELLANE ONCE PRN PRN Reason: Consult order Sitagliptin Phosphate (Sitagliptin Phosphate 100 Mg Tablet) 100 mg PO DAILY [facility] Last Admin: 08/03/21 09:41 Dose: 100 mg Trazodone HCl (Trazodone Hcl 50 Mg Tablet) 50 mg PO BEDTIME PRN PRN Reason: Insomnia Last Admin: 08/01/21 23:38 Dose: 50 mg Vitamin D (Cholecalciferol (Vitamin D3) 10 Mcg Tablet) 10 mcg PO DAILY [facility] Last Admin: 08/03/21 09:42 Dose: 10 mcg Allergies Allergies Allergy/AdvReac Type Severity Reaction Status Date / Time bee pollen [bee stings] Allergy Swelling Verified 05/10/21 21:25 codeine Allergy Anaphylaxis Verified 05/10/21 21:25 Assessment & Plan Assessment & Plan (1) Bipolar 1 disorder with moderate jarrett: Status: Acute Code(s): F31.12 - Bipolar disorder, current episode manic without psychotic features, moderate Plan The patient is a 70-year-old female with a long history of dementia with psychotic features who was in this facility a few months ago that stabilized on Zyprexa. The patient stopped taking her Zyprexa and she decompensated. At this moment, her psychotic symptoms have improved but still she has residual hyper religiosity. Plan 1. Continue Zyprexa 20 mg p.o. q.h.s. as 2. Gather collateral information 3. Possible discharge Early next week. 4. keep Depakote 125 mg p.o. t.i.d. to target impulsivity. 5. Depakote level for morning Friday I spent __20____ minutes with the patient and/or on the patient floor today, greater than?50% of which was spent counseling/coordinating care. Reason for contiued inpatient stay Substantial Risk for: inability to function, rapid decompensation and med/psych decompensation
[2021-08-03 18:00] VITALS: BP 137/69; PULSE 66; RESP 18; TEMP 36.2; O2SAT 95
[2021-08-03] MEDS: OLANZapine ODT 10 MG TAB.RAPDIS 20 MG TRANSLINGU (20:51)
[2021-08-03] MEDS: traZODone HCL 50 MG TABLET PO (23:54)
[2021-08-04 07:25] VITALS: BP 127/61; PULSE 65; RESP 16; TEMP 35.9; O2SAT 95
[2021-08-04] MEDS: Flecainide Acetate 50 MG TABLET 100 MG PO ×2 (09:28→20:47)
[2021-08-04] MEDS: Apixaban 5 MG TABLET PO ×2 (09:28→20:47)
[2021-08-04] MEDS: hydroCHLOROthiazide 25 MG TABLET PO (09:28)
[2021-08-04] MEDS: Metoprolol Succinate ER 25 MG TAB.ER.24H PO (09:28)
[2021-08-04] MEDS: SITagliptin Phosphate 100 MG TABLET PO (09:28)
[2021-08-04] MEDS: Cholecalciferol (Vitamin D3) 10 MCG TABLET PO (09:28)
[2021-08-04] MEDS: lisinopriL 5 MG TABLET PO (09:28)
[2021-08-04] MEDS: Divalproex Sodium 250 MG TABLET.DR 125 MG PO ×3 (09:28→20:47)
--- NOTE | 2021-08-04 17:16 | P.PNPSI_ITS ---
Subjective Subjective Date of Service: 08/04/21 Reason For Visit: Psychosis Interim History: Patient says she is doing well and plans to discharge early next week; nursing staff concur. Patient says you fixed me and says she feels clear minded and stable. Patient jokes with senior underwriter appropriately. No behavioral issues Mental Status Exam Mental Status Exam Patient Appearance: Appropriate Patient Orientation: Person and Situation Level of Consciousness: Awake Patient Behavior: Cooperative Mood Description: Happy and Appropriate Affect Description: Happy, Appropriate and Relaxed Ability to Follow Directions: Fair Speech Pattern: Clear and Spontaneous Speech Hallucinations: Auditory (denies) Delusions: Paranoid Ideation (recent, but none expressed) Thought Process: Intact, Goal Oriented and Linear Thought Content: positive for Obsessional Thoughts Judgement: Fair Diagnostics Vital Signs (24Hr): Vital Signs - 24 hr 08/03/21 18:00 08/04/21 07:25 Temperature 97.1 F 96.7 F L Pulse Rate 66 65 Respiratory Rate 18 16 Blood Pressure 137/69 127/61 Pulse Oximetry 95 95 Oxygen Delivery Method Room Air Room Air BMI result Body Mass Index 39.5 Labs Results: 07/15/21 15:12 07/24/21 10:42 Labs: Laboratory Results - last 48 hr 08/02/21 22:20 COVID-19 ([facility]) Negative COVID-19 Clin Com See Note Medications Medications Current Medications Acetaminophen (Acetaminophen 325 Mg Tablet) 650 mg PO Q6H PRN PRN Reason: Headache/Pain Mild Scale (1-3) Al Hydroxide/Mg Hydroxide (Magnesium Hydrox/Alum Hydrox 30 Ml Oral.Susp) 30 ml PO Q6H PRN PRN Reason: Heartburn/Nausea Apixaban (Apixaban 5 Mg Tablet) 5 mg PO BID [facility] Last Admin: 08/04/21 09:28 Dose: 5 mg Divalproex Sodium (Divalproex Sodium 250 Mg Tablet.Dr) 125 mg PO TID [facility] Last Admin: 08/04/21 14:58 Dose: 125 mg Docusate Sodium (Docusate Sodium 100 Mg Capsule) 100 mg PO BID PRN PRN Reason: Constipation Flecainide Acetate (Flecainide Acetate 50 Mg Tablet) 100 mg PO BID [facility] Last Admin: 08/04/21 09:28 Dose: 100 mg Guaifenesin/Dextromethorphan (Guaifenesin Dm 100/10/5 Ml 5 Ml Syrup) 5 ml PO Q4H PRN PRN Reason: cough Hydrochlorothiazide (Hydrochlorothiazide 25 Mg Tablet) 25 mg PO DAILY [facility] Last Admin: 08/04/21 09:28 Dose: 25 mg Lisinopril (Lisinopril 5 Mg Tablet) 5 mg PO DAILY [facility]; Protocol Last Admin: 08/04/21 09:28 Dose: 5 mg Magnesium Hydroxide (Milk Of Magnesia 30 Ml Oral.Susp) 30 ml PO DAILY PRN PRN Reason: Constipation Last Admin: 08/01/21 10:09 Dose: 30 ml Metoprolol Succinate (Metoprolol Succinate Er 25 Mg Tab.Er.24h) 25 mg PO DAILY [facility]; Protocol Last Admin: 08/04/21 09:28 Dose: 25 mg Olanzapine (Olanzapine Odt 10 Mg Tab.Rapdis) 20 mg TRANSLINGU BEDTIME [facility] Last Admin: 08/03/21 20:51 Dose: 20 mg Pharmacy Consult (Consult Rx Perform Med Rec) 1 each MISCELLANE ONCE PRN PRN Reason: Consult order Sitagliptin Phosphate (Sitagliptin Phosphate 100 Mg Tablet) 100 mg PO DAILY [facility] Last Admin: 08/04/21 09:28 Dose: 100 mg Trazodone HCl (Trazodone Hcl 50 Mg Tablet) 50 mg PO BEDTIME PRN PRN Reason: Insomnia Last Admin: 08/03/21 23:54 Dose: 50 mg Vitamin D (Cholecalciferol (Vitamin D3) 10 Mcg Tablet) 10 mcg PO DAILY [facility] Last Admin: 08/04/21 09:28 Dose: 10 mcg Allergies Allergies Allergy/AdvReac Type Severity Reaction Status Date / Time bee pollen [bee stings] Allergy Swelling Verified 05/10/21 21:25 codeine Allergy Anaphylaxis Verified 05/10/21 21:25 Assessment & Plan Assessment & Plan (1) Bipolar 1 disorder with moderate jarrett: Status: Acute Code(s): F31.12 - Bipolar disorder, current episode manic without psychotic features, moderate Plan The patient is a 70-year-old female with a long history of dementia with psychotic features who was in this facility a few months ago that stabilized on Zyprexa. The patient stopped taking her Zyprexa and she decompensated. At this moment, her psychotic symptoms have improved but still she has residual hyper religiosity. Plan 1. Continue Zyprexa 20 mg p.o. q.h.s. as 2. Gather collateral information 3. Possible discharge Early next week. 4. keep Depakote 125 mg p.o. t.i.d. to target impulsivity. 5. Depakote level for morning Friday 08/04 patient pleasant and friendly; does not express jewish thoughts and does not asked senior underwriter to pray the sinners prayer. Patient is savvy and it is not clear if symptoms have resolved or if she is simply not disclosing them I spent minutes with the patient and/or on the patient floor today, greater than?50% of which was spent counseling/coordinating care. Reason for contiued inpatient stay Substantial Risk for: other
[2021-08-04 18:00] VITALS: BP 118/60; PULSE 65; RESP 18; TEMP 36.6; O2SAT 96
[2021-08-04] MEDS: OLANZapine ODT 10 MG TAB.RAPDIS 20 MG TRANSLINGU (20:46)
[2021-08-04] MEDS: traZODone HCL 50 MG TABLET PO (20:47)
[2021-08-05 07:20] VITALS: BP 133/63; PULSE 65; RESP 14; TEMP 36.2; O2SAT 94
[2021-08-05] MEDS: Metoprolol Succinate ER 25 MG TAB.ER.24H PO (08:25)
[2021-08-05] MEDS: SITagliptin Phosphate 100 MG TABLET PO (08:25)
[2021-08-05] MEDS: Apixaban 5 MG TABLET PO ×2 (08:25→22:54)
[2021-08-05] MEDS: hydroCHLOROthiazide 25 MG TABLET PO (08:25)
[2021-08-05] MEDS: lisinopriL 5 MG TABLET PO (08:25)
[2021-08-05] MEDS: Cholecalciferol (Vitamin D3) 10 MCG TABLET PO (08:25)
[2021-08-05] MEDS: Flecainide Acetate 50 MG TABLET 100 MG PO ×2 (08:25→22:55)
[2021-08-05] MEDS: Divalproex Sodium 250 MG TABLET.DR 125 MG PO ×3 (08:25→22:57)
--- NOTE | 2021-08-05 17:45 | P.PNPSI_ITS ---
Subjective Subjective Date of Service: 08/05/21 Reason For Visit: Psychosis Interim History: pt staring in distance, talking quietly to herself; oblivious to this justowriter operator. Pt eventually stops and talks w/ justowriter operator. She asks justowriter operator to say specific prayer. She says she hears voices some of the time. Pt implies that she knows what to say and to keep her experiences to herself. Staff says she's internally pre- occupied but that she has otherwise been in behavioral control and no preaching out loud. She tells justowriter operator that she has learned that her childrens books will be read to kids in [facility] [place]. Otherwise, pt is pleasant and polite. Mental Status Exam Mental Status Exam Narrative: Pt is alert and oriented; behavior is friendly and cooperative, though intermittently staring blankly ahead and talking to herself; patient is not in distress; dressed in casual attire with unkempt hair but adequate hygiene; mood is described as good and affect more present, calm and more naturally express aliya; eye contact appropriate when talking; Speech is normal rate, volume and prosody and not pressured; no psychomotor agitation; thought process is goal directed; Thought content is still perseverative on restorationist themes but able to discuss other things as well and stay pertinent to relevant topics; delusional idea and grandiosity present; denies any SI/HI. AH reportedly diminished but remains; no thought blocking.? Patients insight and judgment are impaired but have improved. Diagnostics Vital Signs (24Hr): Vital Signs - 24 hr 08/04/21 18:00 08/05/21 07:20 Temperature 97.8 F 97.2 F Pulse Rate 65 65 Respiratory Rate 18 14 Blood Pressure 118/60 133/63 Pulse Oximetry 96 94 Oxygen Delivery Method Room Air Room Air BMI result Body Mass Index 39.5 Labs Results: 07/15/21 15:12 07/24/21 10:42 Medications Medications Current Medications Acetaminophen (Acetaminophen 325 Mg Tablet) 650 mg PO Q6H PRN PRN Reason: Headache/Pain Mild Scale (1-3) Al Hydroxide/Mg Hydroxide (Magnesium Hydrox/Alum Hydrox 30 Ml Oral.Susp) 30 ml PO Q6H PRN PRN Reason: Heartburn/Nausea Apixaban (Apixaban 5 Mg Tablet) 5 mg PO BID [facility] Last Admin: 08/05/21 08:25 Dose: 5 mg Divalproex Sodium (Divalproex Sodium 250 Mg Tablet.Dr) 125 mg PO TID [facility] Last Admin: 08/05/21 15:50 Dose: 125 mg Docusate Sodium (Docusate Sodium 100 Mg Capsule) 100 mg PO BID PRN PRN Reason: Constipation Flecainide Acetate (Flecainide Acetate 50 Mg Tablet) 100 mg PO BID [facility] Last Admin: 08/05/21 08:25 Dose: 100 mg Guaifenesin/Dextromethorphan (Guaifenesin Dm 100/10/5 Ml 5 Ml Syrup) 5 ml PO Q4H PRN PRN Reason: cough Hydrochlorothiazide (Hydrochlorothiazide 25 Mg Tablet) 25 mg PO DAILY [facility] Last Admin: 08/05/21 08:25 Dose: 25 mg Lisinopril (Lisinopril 5 Mg Tablet) 5 mg PO DAILY [facility]; Protocol Last Admin: 08/05/21 08:25 Dose: 5 mg Magnesium Hydroxide (Milk Of Magnesia 30 Ml Oral.Susp) 30 ml PO DAILY PRN PRN Reason: Constipation Last Admin: 08/01/21 10:09 Dose: 30 ml Metoprolol Succinate (Metoprolol Succinate Er 25 Mg Tab.Er.24h) 25 mg PO DAILY [facility]; Protocol Last Admin: 08/05/21 08:25 Dose: 25 mg Olanzapine (Olanzapine Odt 10 Mg Tab.Rapdis) 20 mg TRANSLINGU BEDTIME [facility] Last Admin: 08/04/21 20:46 Dose: 20 mg Pharmacy Consult (Consult Rx Perform Med Rec) 1 each MISCELLANE ONCE PRN PRN Reason: Consult order Sitagliptin Phosphate (Sitagliptin Phosphate 100 Mg Tablet) 100 mg PO DAILY [facility] Last Admin: 08/05/21 08:25 Dose: 100 mg Trazodone HCl (Trazodone Hcl 50 Mg Tablet) 50 mg PO BEDTIME PRN PRN Reason: Insomnia Last Admin: 08/04/21 20:47 Dose: 50 mg Vitamin D (Cholecalciferol (Vitamin D3) 10 Mcg Tablet) 10 mcg PO DAILY [facility] Last Admin: 08/05/21 08:25 Dose: 10 mcg Allergies Allergies Allergy/AdvReac Type Severity Reaction Status Date / Time bee pollen [bee stings] Allergy Swelling Verified 05/10/21 21:25 codeine Allergy Anaphylaxis Verified 05/10/21 21:25 Assessment & Plan Assessment & Plan (1) Bipolar 1 disorder with moderate jarrett: Status: Acute Code(s): F31.12 - Bipolar disorder, current episode manic without psychotic features, moderate Plan The patient is a 70-year-old female with a long history of dementia with psychotic features who was in this facility a few months ago that stabilized on Zyprexa. The patient stopped taking her Zyprexa and she decompensated. At this moment, her psychotic symptoms have improved but still she has residual hyper religiosity. Plan 1. Continue Zyprexa 20 mg p.o. q.h.s. as 2. Gather collateral information 3. Possible discharge Early next week. 4. keep Depakote 125 mg p.o. t.i.d. to target impulsivity. 5. Depakote level for morning Friday 08/04 patient pleasant and friendly; does not express restorationist thoughts and does not asked justowriter operator to pray the sinners prayer. Patient is savvy and it is not clear if symptoms have resolved or if she is simply not disclosing them 08/05 no changes to regimen. I spent minutes with the patient and/or on the patient floor today, greater than?50% of which was spent counseling/coordinating care. Patient educated on: diagnosis Informed Consent: further education needed Reason for contiued inpatient stay Substantial Risk for: stable for discharge
[2021-08-05 18:00] VITALS: BP 135/74; PULSE 63; RESP 135; TEMP 36.9; O2SAT 95
[2021-08-05] MEDS: OLANZapine ODT 10 MG TAB.RAPDIS 20 MG TRANSLINGU (22:55)
[2021-08-06 07:49] LABS: Valproate 32.9 mcg/mL (50.0-100.0)
[2021-08-06 08:00] VITALS: BP 116/56; PULSE 61; RESP 17; TEMP 36.3; O2SAT 94
[2021-08-06] MEDS: Cholecalciferol (Vitamin D3) 10 MCG TABLET PO (09:36)
[2021-08-06] MEDS: Flecainide Acetate 50 MG TABLET 100 MG PO (09:36)
[2021-08-06] MEDS: Metoprolol Succinate ER 25 MG TAB.ER.24H PO (09:36)
[2021-08-06] MEDS: Divalproex Sodium Sprinkles 125 MG CAP.DR.SPR PO (09:36)
[2021-08-06] MEDS: SITagliptin Phosphate 100 MG TABLET PO (09:36)
[2021-08-06] MEDS: Apixaban 5 MG TABLET PO (09:37)
[2021-08-06] MEDS: lisinopriL 5 MG TABLET PO (09:37)
[2021-08-06] MEDS: hydroCHLOROthiazide 25 MG TABLET PO (09:37)
--- NOTE | 2021-08-06 11:10 | PM.PSYDC ---
DS: Providers Provider Date of Service: 08/06/21 Date of admission: 07/16/21 14:56 Date of discharge: 08/06/21 Primary care physician: Jolie Campbell MD Consults: 07/17/21 15:04 Consult to Hospitalist Routine Consulting Provider: Hospitalist Reason For Exam: Olesya in face of UTI and recently started on Ceftin Attending physician on discharge: Chip Vogel DS: Diagnosis Discharge Diagnosis (1) Bipolar 1 disorder with moderate jarrett: Status: Acute DS: Medications Discharge Medications Home Medications: Home Medications Medication Instructions Recorded Confirmed chlorthalidone 25 mg tablet 1 tab PO DAILY 07/15/21 07/15/21 flecainide 100 mg tablet 1 tab PO BID 07/15/21 07/15/21 Previous Rx's Medication Instructions Recorded apixaban 5 mg tablet (Eliquis) 5 mg PO BID 30 days #60 tabs 05/16/21 cholecalciferol (vitamin D3) 10 10 mcg PO DAILY 30 days #30 tabs 05/16/21 mcg (400 unit) tablet (Vitamin D3) lisinopril 40 mg tablet 40 mg PO DAILY 30 days #30 tabs 05/16/21 metoprolol succinate 50 mg 50 mg PO DAILY 30 days #30 tabs 05/16/21 tablet,extended release 24 hr olanzapine 10 mg tablet (Zyprexa) 10 mg PO BEDTIME #30 tabs 05/16/21 sitagliptin 100 mg tablet (Januvia) 100 mg PO DAILY 30 days #30 tabs 05/16/21 Mental Status Exam Mental Status Exam Patient Appearance: Well Grooomed Patient Orientation: Person and Situation Level of Consciousness: Awake Patient Behavior: Cooperative Mood Description: Calm Affect Description: Constricted Ability to Follow Directions: Good Speech Pattern: Clear Hallucinations: None Delusions: Not Present Thought Process: Linear Thought Content: positive for Circumstantial Judgement: Fair Data Data Completed and Pending Completed studies during hospitalization [Text1]: 08/02/21 08/06/21 22:20 07:14 Valproic Acid 32.9 L COVID-19 ([facility]) Negative COVID-19 Clin Com See Note 07/15/21 14:31 Urine clean catch - Clean Catch Midstream Urine Culture - Final DS: Summary Hospital Course Hospital Course: The patient is a 70-year-old female, , living with her , well known by the unit since she was on April last year in this facility for an episode of psychosis. The patient was initially transferred from the adult unit sings she stopped her Zyprexa and she became psychotic, religiously preoccupied and disorganized. Please see HPI of the admission note for further details. The patient was initially transferred from another psychiatric unit to the [facility] psychiatric unit and she was restarted on her Zyprexa titrated up to 20 mg p.o. q.h.s.. The patient adamantly denies psychotic symptoms but her family reported that she was still religiously preoccupied, talking about the rupture, and hearing voices. On the several interviews that we had she adamantly denies voices but the staff reported that she was preaching hand being very religiously preoccupied, restless at times. We discussed the risks, benefits, side-effects and alternatives and since there were no behavioral problems besides sporadic impulsivity we added Depakote on top of Zyprexa with for improvement. Since there were no safety concerns discharge planning was discussed. Time spent discussing smoking cessation with patient: 3 to 10 minutes Status at Discharge Cognitive/behavioral status at discharge: At baseline Functional status at discharge: independent ambulation Overall status at discharge: patient is back to baseline Time Spent with Patient Time attestation: Total time spent providing and/or coordinating discharge services: Time spent: Less than 30 minutes Discharge Plan Discharge Patient Disposition: Home, Self-Care Discharge Diagnosis: Bipolar disorder most recent episode manic with psychotic features Referrals: Psychiatric Med Management: Michael Zelaya (MANAGER SERVICES) [Other] - 08/28/21 3:00 pm (This is a Telehealth appointment ) Jolie Campbell MD [Primary Care Provider] - 08/14/21 1:30 pm Discharge Medications: New Eliquis 5 mg Tablet 5 mg PO BID 30 Days Qty: 60 0RF lisinopril 5 mg Tablet 5 mg PO DAILY 30 Days Qty: 30 0RF Protocol: Hold for SBP< HOLD for SBP < : 90 metoprolol succinate 25 mg Tablet Extended Release 24 Hr 25 mg PO DAILY 30 Days Qty: 30 0RF Protocol: Hold for SBP/HR < HOLD for SBP < : 100 HOLD for HR < : 60 divalproex 125 mg Capsule, Delayed Rel Sprinkle 125 mg PO TID 30 Days Qty: 90 0RF trazodone 50 mg Tablet 50 mg PO BEDTIME PRN (Reason: Insomnia) 30 Days Qty: 30 0RF olanzapine [Zyprexa] 20 mg tablet 20 mg PO BEDTIME 30 Days Qty: 30 0RF Continued flecainide 100 mg tablet 1 tab PO BID 30 Days Qty: 60 0RF chlorthalidone 25 mg tablet 1 tab PO DAILY 30 Days Qty: 30 0RF cholecalciferol (vitamin D3) [Vitamin D3] 10 mcg (400 unit) Tablet 10 mcg PO DAILY 30 Days Qty: 30 0RF Januvia 100 mg Tablet 100 mg PO DAILY 30 Days Qty: 30 0RF Discontinued metoprolol succinate 50 mg Tablet Extended Release 24 Hr 50 mg PO DAILY 30 Days Qty: 30 0RF Protocol: Hold for SBP/HR < HOLD for SBP < : 90 HOLD for HR < : 60 lisinopril 40 mg Tablet 40 mg PO DAILY 30 Days Qty: 30 0RF Protocol: Hold for SBP< HOLD for SBP < : 90 Eliquis 5 mg Tablet 5 mg PO BID 30 Days Qty: 60 0RF olanzapine [Zyprexa] 10 mg tablet 10 mg PO BEDTIME Qty: 30 0RF Discharge Orders: Discharge Order (Routine); Ordered 08/06/21 Ordered By: Chip Vogel Diet: advance to usual diet Activity on Discharge: As tolerated Stand Alone Forms: Patient Portal Discharge page Care Plan Goals: Continue treatment, care plan goals achieved in this admission Health Concerns: Continue treatment with primary care physician Plan of Treatment: Continue outpatient providers Assessment: The patient is an elderly female with a long history of bipolar disorder who decompensated after she stops her Zyprexa that was started on a previous admission on April 2021. Currently ready for discharge.
--- NOTE | 2021-08-06 12:08 | PC.NURSE ---
Pt. states that she is excited to go home, and is ready for d/c. She denies SI/HI, AH/VH. Pt. has a stable gait and ambulated off the unit independently with her . Her VS are stable and all morning medications taken without concern. Pt. belongings have been returned and no discrepancies found. This RN reviewed d/c instructions with pt. and pt. verbalized understanding. PCP appointment scheduled for 08/14/2021 at 1:30pm through [facility]. Pt. d/c off unit at 1205, no concerns noted by this RN or expressed by pt. and spouse.
== END 2021-08-06 12:05 | disposition home or self-care (01) | DRG 885 ==
LOC: HO.ED 16:27 → HO.PM5 07-16 15:06 → HO.PGERI 07-30 11:01
PROVIDERS: Physician Assistant; Psychiatry & Neurology Psychiatry; Registered Nurse; Admitting Provider Psychiatry & Neurology Psychiatry; Emergency Provider Emergency Medicine; PCP Internal Medicine; Visit Provider Psychiatry & Neurology Psychiatry
DX: F31.12 Bipolar disorder, current episode manic without psychotic features, moderate (principal); N39.0 Urinary tract infection, site not specified; N17.9 Acute kidney failure, unspecified; I10 Essential (primary) hypertension; E11.9 Type 2 diabetes mellitus without complications; I48.91 Unspecified atrial fibrillation; Z20.822 Contact with and (suspected) exposure to COVID-19; Z88.5 Allergy status to narcotic agent; Z79.01 Long term (current) use of anticoagulants; Z79.899 Other long term (current) drug therapy
CPT/HCPCS: 0241U; 36415; 80048; 80051; 80053; 80061; 80076; 80164; 80307; 81001; 82077; 82565; 82607; 82746; 83036; 83735; 84439; 84443; 84520; 85025; 87086; 87635; 93005; 99285

== ENCOUNTER 2021-10-21 11:33 | Emergency (ER) | payer MEDICARE, SELFPAY ==
[2021-10-21 12:11] VITALS: BP 148/66; PULSE 66; RESP 16; TEMP 36.6; O2SAT 97; BMI 35.5
--- NOTE | 2021-10-21 12:18 | ECG_ITS ---
Test Reason : MEDICAL CLEARANCE Blood Pressure : / mmHG Vent. Rate : 063 BPM Atrial Rate : 063 BPM P-R Int : 212 ms QRS Dur : 096 ms QT Int : 450 ms P-R-T Axes : 025 -55 005 degrees QTc Int : 460 ms Sinus rhythm with 1st degree A-V block Left anterior fascicular block Minimal voltage criteria for LVH, may be normal variant ( [place] product ) Septal infarct (cited on or before 15-JUL-2021) Abnormal ECG When compared with ECG of 15-JUL-2021 23:09, Left anterior fascicular block is now Present Questionable change in initial forces of Lateral leads Referred By: Generic ED Physician Electronically Signed By:DANIELITO RIZO
[2021-10-21 12:40] LABS: MANUAL DIFF FLAG NO
[2021-10-21 12:44] LABS: Appearance Urine Cloudy; Color Urine Yellow; Glucose Urine UA Negative (Negative); Leukocyte Esterase Urine Large (3+) (Negative); Nitrite Urine Negative (Negative); PH 6.5 (5.0-9.0); Urine Blood Negative (Negative); Urine Ketones Negative (Negative); Urine Protein Negative (Neg-Trace)
[2021-10-21 12:47] LABS: Basophils Percent Auto 0.5 % (0-2); Hematocrit 41.9 % (37.0-47.0); Hemoglobin 14.2 g/dl (12.0-16.0); Imm Gran Abs Auto 0.02 X10*3/uL (0.00-0.03); Imm Gran Pct Auto 0.3 % (0.0-0.4); Lymphocytes Percent Auto 25.9 % (20-40); Mean Corpuscular HGB Conc 33.9 g/dl (31.0-35.0); Mean Corpuscular Hemoglobin 27.3 pg (27.0-33.0); Mean Corpuscular Volume 80.4 fL (80.0-98.0); Mean Platelet Volume 10.4 fL (9.4-12.3); Monocytes Absolute Auto 0.6 X10*3/uL (0.1-1.2); Monocytes Percent Auto 7.8 % (2-11); Neutrophils Absolute Auto 5.1 x10*3/uL (2.0-8.3); Neutrophils Percent Auto 65.5 % (45-73); Platelet Count 229 X10*3/uL (160-400); Red Blood Count 5.21 X10*6/uL (4.20-5.50); White Blood Count 7.8 X10*3/uL (4.8-10.8)
[2021-10-21 12:54] LABS: COVID-19 Test Negative (Negative); IDNOW Serial# 08D9AD1C
[2021-10-21 12:55] LABS: Anion Gap 17 (12-20); Blood Urea Nitrogen 18 mg/dL (9-16); Calcium 9.2 mg/dL (8.4-10.2); Carbon Dioxide 25 mmol/L (22-29); Chloride 100 mmol/L (96-108); Creatinine Clr Calc Pharmacy 79.2; Estimated Glomerular Filt Rate > 60; Glucose Random 100 mg/dL (60-115); Sodium 139 mmol/L (135-145)
[2021-10-21 13:09] LABS: Valproate 10.9 mcg/mL (50.0-100.0)
[2021-10-21 13:11] LABS: Bacteria Urine Trace (None Seen); Hyaline Casts Urine 0-2 /LPF (0-2); RBC Urine 0-2 /HPF (0-2); Renal Epithelial Cells Urine Present; Transitional Epi Cells Urine Present; UACC Culture Trigger YES; WBC Urine 21-50 /HPF (0-5)
--- NOTE | 2021-10-21 13:16 | ED.GENADULT ---
HPI - General Adult General Chief complaint: Psychiatric Symptoms Stated complaint: possible uti, sycosis Time Seen by Provider: 10/21/21 13:16 Source: patient and family () Mode of arrival: ambulatory Limitations: no limitations History of Present Illness HPI narrative: Patient is a 70 year old female presenting to the emergency department today with a possible urinary tract infection and increased delusions. Patient states that she hears voices in her head all the time. Patient's states that her delusions seem to be getting worse. Patient denies any dizziness, lightheadedness, abdominal pain, nausea, vomiting, fever, chills, blurry vision, double vision, loss of vision, chest pain, difficulty breathing, shortness of breath, back pain, night sweats, pain with urination, increased urinary frequency, increased urinary urgency, blood in her urine or stool, syncope or a near syncopal episode, recent trauma or falls, bowel incontinence, bladder incontinence, bowel retention, bladder retention, or any other complaints at this time. Patient denies any thoughts of hurting herself or others. Onset (ago): day(s) Severity: mild Severity scale (1-10): 1 Relieving factors: none Exacerbating factors: none Associated symptoms: denies other symptoms Treatments prior to arrival: none Related Data Previous Rx's Medication Instructions Recorded apixaban 5 mg tablet (Eliquis) 5 mg PO BID 30 days #60 tabs 08/06/21 chlorthalidone 25 mg tablet 1 tab PO DAILY 30 days #30 tabs 08/06/21 cholecalciferol (vitamin D3) 10 10 mcg PO DAILY 30 days #30 tabs 08/06/21 mcg (400 unit) tablet (Vitamin D3) divalproex 125 mg capsule,delayed 125 mg PO TID 30 days #90 caps 08/06/21 release sprinkle flecainide 100 mg tablet 1 tab PO BID 30 days #60 tabs 08/06/21 lisinopril 5 mg tablet 5 mg PO DAILY 30 days #30 tabs 08/06/21 metoprolol succinate 25 mg 25 mg PO DAILY 30 days #30 tabs 08/06/21 tablet,extended release 24 hr olanzapine 20 mg tablet (Zyprexa) 20 mg PO BEDTIME 30 days #30 tabs 08/06/21 sitagliptin 100 mg tablet (Januvia) 100 mg PO DAILY 30 days #30 tabs 08/06/21 trazodone 50 mg tablet 50 mg PO BEDTIME PRN Insomnia 30 08/06/21 days #30 tabs cephalexin 500 mg capsule 500 mg PO Q6H 7 days #28 caps 10/21/21 divalproex 250 mg tablet,delayed 250 mg PO BEDTIME #30 tabs 10/21/21 release Allergies Allergy/AdvReac Type Severity Reaction Status Date / Time bee pollen [bee stings] Allergy Swelling Verified 05/10/21 21:25 codeine Allergy Anaphylaxis Verified 05/10/21 21:25 Review of Systems Constitutional: Constitutional: Reports no additional constitutional complaints, Denies chills, Denies fever(s) and Denies night sweats Eyes: Eyes: Reports no additional eye complaints, Denies blurry vision, Denies change in vision, Denies diplopia, Denies eye discharge, Denies loss of vision and Denies eye pain ENT: Denies dizziness Cardiovascular: Cardiovascular: Reports no additional cardiovascular complaints, Denies chest pain, Denies lightheadedness, Denies Loss of Consciousness and Denies dyspnea Respiratory: Respiratory: Reports no additional respiratory complaints and Denies dyspnea Gastrointestinal: Gastrointestinal: Reports no additional gastrointestinal complaints, Denies abdominal pain, Denies melena, Denies hematochezia, Denies change in bowel habits and Denies change in stool character Genitourinary: Genitourinary: Denies hematuria, Denies urinary frequency, Denies dysuria, Denies urinary incontinence, Denies urinary hesitancy and Denies urinary urgency Musculoskeletal: Musculoskeletal: Reports no additional musculoskeletal complaints, Denies numbness and Denies tingling Neurologic: Denies dizziness, Denies loss of vision, Denies numbness and Denies tingling Psychiatric: Psychiatric: Reports auditory hallucinations Endocrine: Endocrine: Reports no additional endocrine complaints Hematologic/Lymphatic: Hematologic/Lymphatic: Reports no additional hematologic/lymphatic complaints Allergic/Immunologic: Allergic/Immunologic: Reports no additional allergic/immunologic complaints PMFSH Past Medical History Attestation statement: The following information was validated with the patient. Source: old records reviewed Medical History Bipolar 1 disorder with moderate jarrett Social History Social History Household Members: Spouse Housing: House Do you presently have visiting nurse or other home services: No Alcohol intake: never Patient Tobacco Use Status: Never used Tobacco Use of substances other than those prescribed or required for medical reasons: No Advance Directives: Yes Advance Directives on File: Yes Advance Directives Date on File: 05/21/21 service: No Sexual orientation: Straight/Heterosexual Physical Exam ED Vital Signs: Vital Signs - 24 hr 10/21/21 12:11 Temperature 97.9 F Pulse Rate 66 Respiratory Rate 16 Blood Pressure 148/66 H Pulse Oximetry 97 Oxygen Delivery Method Room Air BMI result Body Mass Index 35.5 Const General: cooperative, no acute distress, alert and awake Nutritional Appearance: well nourished Orientation/consciousness: patient oriented x3 Limitations: no limitations HENMT Head: Yes normal to inspection and Yes atraumatic Ears: hearing grossly normal bilaterally and external ears normal General nose exam: Normal external nose present, no nasal discharge noted and no epistaxis Face and sinus: Yes normal facial exam, No abrasion and No laceration Mouth: Normal oral and palatal mucosa present, no drooling and no muffled voice Eyes General: appearance normal, both eyes and all related structures Periorbital: periorbital findings normal Eyelids: Yes eyelids normal Conjunctivae: conjunctivae normal Pupils: Equal, round and reactive pupils present EOM: EOMs intact bilaterally Neck Neck: Yes normal visual inspection, Yes full ROM and Yes no lymphadenopathy Chest Chest palpation & inspection: normal inspection of the chest Resp Effort & Inspection: normal respiratory effort and able to speak in complete sentences Auscultation: clear to auscultation bilaterally Cardio Rate: regular rate Rhythm: regular rhythm GI Inspection: Yes normal to inspection Palpation (GI): Soft to palpation, not firm, nontender, no guarding and not rigid Neuro General: patient oriented x3 and moves all extremities Cranial nerves: Yes Equal, round and reactive pupils present Cognition (Neuro): normal cognition Motor exam (neuro): 5/5 motor strength present throughout Sensory Exam: Normal double simultaneous stimulation for sensation Coordination: [id number] test normal Extrem General: Yes normal to inspection, Yes full ROM and Yes capillary refill normal Psych Appearance: grossly normal Mental Status: mental status grossly normal Affect: normal affect Attitude: cooperative Thought process: Normal thought process present Thought content: Normal thought content present Insight: Good insight present (Psych) Medical Decision Making MDM Narrative Medical decision making narrative: Patient is a 70 year old female presenting to the emergency department today with a UTI and increased delusions. Patient's physical exam was unremarkable. Patient's blood work was unremarkable. Patient's urine showed an acute UTI. Patient's EKG was unremarkable. I explained my physical exam findings as well as all test results to the patient and the patient's . I answered all questions asked by the patient and the patient's . Patient was given a dose of Keflex in the department for her UTI. Patient was evaluated by psychiatry who made medication adjustments and provided them with information for the partial program. I stressed the importance of the patient taking her medication as prescribed. I stressed the importance of the patient following up with her primary care provider and her psychiatrist. I stressed the importance of the patient returning to the emergency department immediately if her symptoms were to worsen or if she were to develop any dizziness, shortness of breath, difficulty breathing, chest pain, blurry vision, loss of vision, nausea, vomiting, abdominal pain, fever, chills, back pain, or any other complaints. Patient and the patient's verbalized agreement and understanding with this treatment plan and discharge. Medical Records Medical records reviewed: Yes I reviewed the patient's medical records. Lab Data Lab results reviewed: Yes I reviewed the patient's lab results. Result diagrams: 10/21/21 12:33 10/21/21 12:33 Labs: Lab Results 10/21/21 10/21/21 10/21/21 Range/Units 12:33 12:33 12:33 WBC 7.8 (4.8-10.8) X10*3/uL RBC 5.21 (4.20-5.50) X10*6/uL Hgb 14.2 (12.0-16.0) g/dl Hct 41.9 (37.0-47.0) % MCV 80.4 (80.0-98.0) fL MCH 27.3 (27.0-33.0) pg MCHC 33.9 (31.0-35.0) g/dl RDW 13.0 (11.0-16.0) % Plt Count 229 (160-400) X10*3/uL MPV 10.4 (9.4-12.3) fL Immature Gran % (Auto) 0.3 (0.0-0.4) % Neut % (Auto) 65.5 (45-73) % Lymph % (Auto) 25.9 (20-40) % [place] % (Auto) 7.8 (2-11) % Eos % (Auto) 0.0 (0-4) % Baso % (Auto) 0.5 (0-2) % Lymph # (Auto) 2.0 (1.2-4.9) X10*3/uL [place] # (Auto) 0.6 (0.1-1.2) X10*3/uL Eos # (Auto) 0.0 (0.0-0.4) X10*3/uL Baso # (Auto) 0.0 (0.0-0.2) X10*3/uL Abs Immat Gran (auto) 0.02 (0.00-0.03) X10*3/uL Absolute Neuts (auto) 5.1 (2.0-8.3) x10*3/uL Absolute Nucleated RBC 0.000 (0.0-0.012) X10*3/uL Nucleated RBC % (auto) 0.0 (0.0-0.2) /100WBC Sodium 139 (135-145) mmol/L Potassium 3.0 L D (3.3-5.1) mmol/L Chloride 100 (96-108) mmol/L Carbon Dioxide 25 (22-29) mmol/L Anion Gap 17 (12-20) BUN 18 H (9-16) mg/dL Creatinine 0.81 (0.5-1.4) mg/dL Estim Creat Clear Calc 79.2 Estimated GFR > 60 Random Glucose 100 (60-115) mg/dL Calcium 9.2 D (8.4-10.2) mg/dL Urine Color Urine Appearance Urine pH (5.0-9.0) Ur Specific [place] (1.005-1.025) Urine Protein (Neg-Trace) mg/dL Urine Glucose (UA) (Negative) mg/dL Urine Ketones (Negative) mg/dL Urine Blood (Negative) Urine Nitrite (Negative) Ur Leukocyte Esterase (Negative) Urine RBC (0-2) /HPF Urine WBC (0-5) /HPF Ur Squamous Epith Cells (0-2) /HPF Ur Transition Epith Cell Ur Renal Epithelial Cell Urine Bacteria (None Seen) Hyaline Casts (0-2) /LPF Valproic Acid 10.9 L (50.0-100.0) mcg/mL COVID-19 ([facility]) (Negative) COVID-19 Clin Com 10/21/21 10/21/21 Range/Units 12:34 12:35 WBC (4.8-10.8) X10*3/uL RBC (4.20-5.50) X10*6/uL Hgb (12.0-16.0) g/dl Hct (37.0-47.0) % MCV (80.0-98.0) fL MCH (27.0-33.0) pg MCHC (31.0-35.0) g/dl RDW (11.0-16.0) % Plt Count (160-400) X10*3/uL MPV (9.4-12.3) fL Immature Gran % (Auto) (0.0-0.4) % Neut % (Auto) (45-73) % Lymph % (Auto) (20-40) % [place] % (Auto) (2-11) % Eos % (Auto) (0-4) % Baso % (Auto) (0-2) % Lymph # (Auto) (1.2-4.9) X10*3/uL [place] # (Auto) (0.1-1.2) X10*3/uL Eos # (Auto) (0.0-0.4) X10*3/uL Baso # (Auto) (0.0-0.2) X10*3/uL Abs Immat Gran (auto) (0.00-0.03) X10*3/uL Absolute Neuts (auto) (2.0-8.3) x10*3/uL Absolute Nucleated RBC (0.0-0.012) X10*3/uL Nucleated RBC % (auto) (0.0-0.2) /100WBC Sodium (135-145) mmol/L Potassium (3.3-5.1) mmol/L Chloride (96-108) mmol/L Carbon Dioxide (22-29) mmol/L Anion Gap (12-20) BUN (9-16) mg/dL Creatinine (0.5-1.4) mg/dL Estim Creat Clear Calc Estimated GFR Random Glucose (60-115) mg/dL Calcium (8.4-10.2) mg/dL Urine Color Yellow Urine Appearance Cloudy Urine pH 6.5 (5.0-9.0) Ur Specific [place] 1.010 (1.005-1.025) Urine Protein Negative (Neg-Trace) mg/dL Urine Glucose (UA) Negative (Negative) mg/dL Urine Ketones Negative (Negative) mg/dL Urine Blood Negative (Negative) Urine Nitrite Negative (Negative) Ur Leukocyte Esterase Large (3+) H (Negative) Urine RBC 0-2 (0-2) /HPF Urine WBC 21-50 H (0-5) /HPF Ur Squamous Epith Cells 11-20 (0-2) /HPF Ur Transition Epith Cell Present Ur Renal Epithelial Cell Present Urine Bacteria Trace (None Seen) Hyaline Casts 0-2 (0-2) /LPF Valproic Acid (50.0-100.0) mcg/mL COVID-19 ([facility]) Negative (Negative) COVID-19 Clin Com See Note ECG Data Attestation: I personally reviewed and interpreted this ECG as follows: Prior ECG tracings: available for review Interpretation: Vent. Rate: 063 BPM ? ? Atrial Rate: 063 BPM P-R Int: 212 ms? QRS Dur: 096 ms QT Int: 450 ms ? ? ? P-R-T Axes: 025 -55 005 degrees QTc Int: 460 ms ? Sinus rhythm with 1st degree A-V block Left anterior fascicular block Minimal voltage criteria for LVH, may be normal variant ( [place] product ) Septal infarct (cited on or before 15-JUL-2021) Abnormal ECG When compared with ECG of 15-JUL-2021 23:09, Left anterior fascicular block is now Present Questionable change in initial forces of Lateral leads DD/ 1221 Discharge Plan Discharge Clinical Impression: Urinary tract infection, Bipolar 1 disorder Patient Disposition: Home, Self-Care Instructions: Urinary Tract Infection in Women (ED), Bipolar Disorder (ED) Additional Instructions: Follow up with your primary care provider and psychiatrist. Return to the emergency department immediately if your symptoms worsen or if you develop any dizziness, shortness of breath, difficulty breathing, chest pain, blurry vision, loss of vision, nausea, vomiting, abdominal pain, fever, chills, back pain, or any other complaints. Prescriptions: New cephalexin 500 mg capsule 500 mg PO Q6H 7 Days Qty: 28 0RF divalproex 250 mg tablet,delayed release (DR/EC) 250 mg PO BEDTIME Qty: 30 0RF No Action Eliquis 5 mg Tablet 5 mg PO BID 30 Days Qty: 60 0RF lisinopril 5 mg Tablet 5 mg PO DAILY 30 Days Qty: 30 0RF Protocol: Hold for SBP< HOLD for SBP < : 90 metoprolol succinate 25 mg Tablet Extended Release 24 Hr 25 mg PO DAILY 30 Days Qty: 30 0RF Protocol: Hold for SBP/HR < HOLD for SBP < : 100 HOLD for HR < : 60 divalproex 125 mg Capsule, Delayed Rel Sprinkle 125 mg PO TID 30 Days Qty: 90 0RF trazodone 50 mg Tablet 50 mg PO BEDTIME PRN (Reason: Insomnia) 30 Days Qty: 30 0RF olanzapine [Zyprexa] 20 mg tablet 20 mg PO BEDTIME 30 Days Qty: 30 0RF flecainide 100 mg tablet 1 tab PO BID 30 Days Qty: 60 0RF chlorthalidone 25 mg tablet 1 tab PO DAILY 30 Days Qty: 30 0RF cholecalciferol (vitamin D3) [Vitamin D3] 10 mcg (400 unit) Tablet 10 mcg PO DAILY 30 Days Qty: 30 0RF Januvia 100 mg Tablet 100 mg PO DAILY 30 Days Qty: 30 0RF Referrals: Jude Campbell MD [Primary Care Provider] - Interventions: ED Discharge Assessment Last Done: 10/21/21 16:15 Discharge Date/Time: 10/21/21 16:15 Print Language: [place]
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
[2021-10-21] MEDS: cephALEXin 500 MG CAPSULE PO (14:09)
--- NOTE | 2021-10-21 14:11 | PC.NURSE ---
pt a/o x 4 no sob/maria t noted skin pink warm dry speaks in full sentences. lungs - cta. heart sounds - regular. amb (i) gait steady. at bedside. pt/ aware of plan of care.
--- NOTE | 2021-10-21 15:03 | PC.NURSE ---
bhn/care team at bedside with pt/.
== END 2021-10-21 16:15 | disposition home or self-care (01) ==
PROVIDERS: Emergency Provider Emergency Medicine; PCP Internal Medicine
DX: N39.0 Urinary tract infection, site not specified (principal); F31.9 Bipolar disorder, unspecified; Z20.822 Contact with and (suspected) exposure to COVID-19; Z79.899 Other long term (current) drug therapy
CPT/HCPCS: 36415; 80048; 80164; 81001; 85025; 87086; 87635; 93005; 99284